=== PATIENT | female | born 1960 | race Caucasian/White ===

== ENCOUNTER 2023-08-10 11:16 | Inpatient (IN) | payer BC, OTHER ==
--- NOTE | 2023-08-10 11:18 | ED ---
General Adult HPI - General Source: RN notes reviewed <Gayle Tran - Last Filed: 08/10/23 11:18> - General Source: patient, family, RN/MD, RN notes reviewed, old records reviewed Limitations: no limitations <Curtis Prabhakar - Last Filed: 08/10/23 14:31> - General Stated complaint: Back pain Time Seen by Provider: 08/10/23 11:18 - History of Present Illness Initial comments: 63-year-old female with past medical history significant for cancer presents the emergency department with a chief complaint of back pain. Patient denies any constitutional symptoms. (Gayle Tran) Patient is a pleasant 61-year-old female presenting to the emergency Department with diffuse pain. Patient was recently diagnosed with metastatic lung cancer and is still currently under investigation. Patient is having increased pain especially in her chest and back. Patient has known soft tissue and vertebral lesions. Patient did see cardiology today. Patient needs further valuations including PET scan and CAT scan as discussed with Dr. Vasquez. (Curtis Prabhakar) Review of Systems ROS Other: All systems not noted in ROS Statement are negative. <Gayle Tran - Last Filed: 08/10/23 11:18> ROS Other: All systems not noted in ROS Statement are negative. Constitutional: Denies: fever Eyes: Denies: eye pain ENT: Denies: ear pain Respiratory: Denies: dyspnea Cardiovascular: Reports: as per HPI Endocrine: Reports: fatigue Gastrointestinal: Reports: abdominal pain, constipation Genitourinary: Denies: dysuria Musculoskeletal: Reports: as per HPI, back pain <Crutis Prabhakar - Last Filed: 08/10/23 14:31> ROS Statement: Those systems with pertinent positive or pertinent negative responses have been documented in the HPI. General Exam <Gayle Tran - Last Filed: 08/10/23 11:18> Limitations: no limitations General appearance: alert, in no apparent distress Head exam: Present: atraumatic Eye exam: Present: normal appearance Neck exam: Present: normal inspection Respiratory exam: Present: normal lung sounds bilaterally Cardiovascular Exam: Present: regular rate, normal rhythm GI/Abdominal exam: Present: soft. Absent: distended, tenderness Extremities exam: Present: normal inspection Neurological exam: Present: alert Psychiatric exam: Present: normal affect, normal mood Skin exam: Present: normal color, other (Subcutaneous nodule left neck and left calf) <Curtis Prabhakar - Last Filed: 08/10/23 14:31> - General Exam Comments Initial Comments: Visual Physical Exam Vital signs reviewed General: Well-appearing, nontoxic, no acute distress. Head: Normocephalic, atraumatic Eyes: PERRLA, EOMI ENT: Airway patent Chest: Nonlabored breathing Skin: No visual rash, normal skin tone Neuro: Alert and oriented 3 Musculoskeletal: No gross abnormalities (Gayle Tran) Course Vital Signs 08/10/23 12:12 Temperature 98.5 F Pulse Rate 86 Respiratory 18 Rate Blood Pressure 157/84 O2 Sat by Pulse 95 Oximetry Medical Decision Making <Gayle Tran - Last Filed: 08/10/23 11:18> - Lab Data Result diagrams: 08/10/23 12:58 08/10/23 12:58 <Curtis Prabhakar - Last Filed: 08/10/23 14:31> - Medical Decision Making I performed the quick note portion of this exam, verbal signature Gayle Tran PA-C (Gayle Tran) Was pt. sent in by a medical professional or institution ([facility], [facility], urgent care, hospital, or intermediate...) When possible be specific @ -Patient was sent in by Dr. Amezquita Did you speak to anyone other than the patient for history (EMS, parent, family, police, friend...)? What history was obtained from this source @ -Family doctor also provided additional history is patient's history is comfortable Did you review nursing and triage notes (agree or disagree)? Why? @ -I reviewed and agree with nursing and triage notes Were old charts reviewed (outside hosp., previous admission, EMS record, old EKG, old radiological studies, urgent care reports/EKG's, intermediate records)? Report findings @ -No old charts were reviewed Differential Diagnosis (chest pain, altered mental status, abdominal pain women, abdominal pain men, vaginal bleeding, weakness, fever, dyspnea, syncope, headache, dizziness, GI bleed, back pain, seizure, CVA, palpatations, mental health, musculoskeletal)? @ -Differential Back Pain: Strain, zoster, cauda equina syndrome, epidural abscess, vertebral osteomyelitis, discitis, fracture, subluxation, disc herniation, DJD, spinal stenosis, dissection, AAA, pancreatitis, peptic ulcer disease, pyelonephritis, kidney stone, this is not meant to be an all-inclusive list. EKG interpreted by me (3pts min.). @ -As above X-rays interpreted by me (1pt min.). @ -None done CT interpreted by me (1pt min.). @ -Computed tomography scan ordered for inpatient U/S interpreted by me (1pt. min.). @ -None done What testing was considered but not performed or refused? (CT, X-rays, U/S, labs)? Why? @ -None What meds were considered but not given or refused? Why? @ -None Did you discuss the management of the patient with other professionals (professionals i.e. , PA, M[employer] T[employer]ER, lab, RT, psych nurse, social media executive, district administrator, teacher, custom protection officer, heel caser)? Give summary @ -Case was discussed with Dr. Amezquita. He does request PET scan and pain control and pulmonary consult. He does also request computed tomography scan chest abdomen pelvis. Case was also discussed with Dr. Reddy who will admit. Was smoking cessation discussed for >3mins.? @ -No Was critical care preformed (if so, how long)? @ -No Were there social determinants of health that impacted care today? How? (Homelessness, low income, unemployed, alcoholism, drug addiction, transportation, low edu. Level, literacy, decrease access to med. care, fpc, rehab)? @ -No Was there de-escalation of care discussed even if they declined (Discuss DNR or withdrawal of care, Hospice)? DNR status @ -No What co-morbidities impacted this encounter? (DM, HTN, Smoking, COPD, CAD, Cancer, CVA, ARF, Chemo, Hep., AIDS, mental health diagnosis, sleep apnea, morbid obesity)? @ -None Was patient admitted / discharged? Hospital course, mention meds given and route, prescriptions, significant lab abnormalities, going to OR and other pertinent info. @ -Patient and family are made aware of plan. Patient will be admitted. Admission orders written. Consult placed. Undiagnosed new problem with uncertain prognosis? @ -No Drug Therapy requiring intensive monitoring for toxicity (Heparin, Nitro, Insulin, Cardizem)? @ -No Were any procedures done? @ -No Diagnosis/symptom? @ -Back pain. Metastatic lung cancer. Constipation. Acute, or Chronic, or Acute on Chronic? @ -Acute, acute, acute Uncomplicated (without systemic symptoms) or Complicated (systemic symptoms)? @ -Complicated with vertebral lesions Side effects of treatment? @ -No Exacerbation, Progression, or Severe Exacerbation? @ -No Poses a threat to life or bodily function? How? (Chest pain, [place], [place], pneumonia, PE, COPD, DKA, ARF, appy, cholecystitis, CVA, Diverticulitis, Homicidal, Suicidal, threat to staff... and all critical care pts) @ -Diffuse metastatic lung cancer does pose a threat to life (Curtis Prabhakar) - Lab Data Lab Results 08/10/23 08/10/23 08/10/23 Range/Units 12:58 12:58 12:58 WBC 8.2 (3.8-10.6) k/uL RBC 5.28 (3.80-5.40) m/uL Hgb 14.9 (11.4-16.0) gm/dL Hct 46.7 H (34.0-46.0) % MCV 88.5 (80.0-100.0) fL MCH 28.3 (25.0-35.0) pg MCHC 32.0 (31.0-37.0) g/dL RDW 13.9 (11.5-15.5) % Plt Count 251 (150-450) k/uL MPV 7.2 Neutrophils % 78 % Lymphocytes % 13 % Monocytes % 7 % Eosinophils % 1 % Basophils % 1 % Neutrophils # 6.4 (1.3-7.7) k/uL Lymphocytes # 1.0 (1.0-4.8) k/uL Monocytes # 0.6 (0-1.0) k/uL Eosinophils # 0.1 (0-0.7) k/uL Basophils # 0.0 (0-0.2) k/uL Sodium 137 (137-145) mmol/L Potassium 4.0 (3.5-5.1) mmol/L Chloride 97 L (98-107) mmol/L Carbon Dioxide 28 (22-30) mmol/L Anion Gap 12 mmol/L BUN 13 (7-17) mg/dL Creatinine 0.58 (0.52-1.04) mg/dL Est GFR (CKD-EPI)AfAm >90 (>60 ml/min/1.73 sqM) Est GFR (CKD-EPI)NonAf >90 (>60 ml/min/1.73 sqM) Glucose 263 H (74-99) mg/dL Calcium 10.4 H (8.4-10.2) mg/dL Total Bilirubin 1.0 (0.2-1.3) mg/dL AST 90 H (14-36) U/L ALT 84 H (4-34) U/L Alkaline Phosphatase 578 H (38-126) U/L Total Protein 7.5 (6.3-8.2) g/dL Albumin 3.8 (3.5-5.0) g/dL Influenza Type A (PCR) Not Detected (Not Detectd) Influenza Type B (PCR) Not Detected (Not Detectd) RSV (PCR) Not Detected (Not Detectd) SARS-CoV-2 (PCR) Not Detected (Not Detectd) Disposition <Gayle Tran - Last Filed: 08/10/23 11:18> Is patient prescribed a controlled substance at d/c from ED?: No Time of Disposition: 14:31 <Curtis Prabhakar - Last Filed: 08/10/23 14:31> Clinical Impression: Back pain, Metastatic lung cancer (metastasis from lung to other site), Constipation Disposition: ADMITTED IP TO THIS HOSP Condition: Stable Referrals: Emily Falcon DO [Primary Care Provider] - 1-2 days
[2023-08-10 13:25] LABS: Basophils % (A) 1 %; Eosinophils # (A) 0.1 k/uL (0-0.7); Eosinophils % (A) 1 %; HCT 46.7 % (34.0-46.0); HGB 14.9 gm/dL (11.4-16.0); Lymphocytes % (A) 13 %; MCH 28.3 pg (25.0-35.0); MCV 88.5 fL (80.0-100.0); Mean Platelet Volume 7.2; Monocytes # (A) 0.6 k/uL (0-1.0); Monocytes % (A) 7 %; Neutrophils # (A) 6.4 k/uL (1.3-7.7); Neutrophils % (A) 78 %; Platelet Count 251 k/uL (150-450); RBC 5.28 m/uL (3.80-5.40); RDW 13.9 % (11.5-15.5); WBC 8.2 k/uL (3.8-10.6)
[2023-08-10 13:36] LABS: ALT 84 U/L (4-34); AST 90 U/L (14-36); African American GFR (CKD) >90 (>60 ml/min/1.73 sqM); Albumin 3.8 g/dL (3.5-5.0); Alkaline Phosphatase 578 U/L (38-126); Anion Gap 12 mmol/L; Blood Urea Nitrogen 13 mg/dL (7-17); Calcium 10.4 mg/dL (8.4-10.2); Carbon Dioxide 28 mmol/L (22-30); Chloride 97 mmol/L (98-107); Glucose 263 mg/dL (74-99); Non-African American GFR(CKD) >90 (>60 ml/min/1.73 sqM); Sodium 137 mmol/L (137-145); Total Protein 7.5 g/dL (6.3-8.2)
[2023-08-10] MEDS ORDERED: MORPHINE SULFATE 4 MG/ML SYRINGE IVP STA (14:21)
[2023-08-10] MEDS ORDERED: SODIUM CHLORIDE 0.9% 1,000 ML IV STA (14:21)
[2023-08-10] MEDS ORDERED: IOPAMIDOL CONTRAST (ORAL USE) VIAL PO PRN (14:22)
[2023-08-10] MEDS ORDERED: HYDROmorphone 1 MG/ML 1 ML SYRINGE IVP PRN (14:22)
[2023-08-10] MEDS ORDERED: NALOXONE 0.4 MG/ML 1 ML VIAL IV PRN (14:22)
[2023-08-10] MEDS: SODIUM CHLORIDE 0.9% 1,000 ML IV SCH (16:26)
--- NOTE | 2023-08-10 20:06 | XR ---
EXAMINATION TYPE: XR chest 2V DATE OF EXAM: 08/10/2023 COMPARISON: None INDICATION: Chest pain history of lung cancer TECHNIQUE: Frontal and lateral views of the chest are obtained. FINDINGS: The heart size is normal. The pulmonary vasculature is normal. There is a large mass right left upper lung field can be compatible with the patient's reported lung cancer. Right lung appears clear. The right hilum appears unremarkable. IMPRESSION: 1. Large mass left upper lung field
--- NOTE | 2023-08-10 21:06 | CT ---
EXAMINATION TYPE: CT ChestAbdPelvis w con CT DLP: 1355.8 mGycm, Automated exposure control for dose reduction was used. DATE OF EXAM: 08/10/2023 6:00 PM COMPARISON: Same day 2V chest x-ray CLINICAL INDICATION:Female, 63 years old with history of mets, pain; PHH, Pt c/o back pain, neck pain , constipation, chest pain and bilat leg pain. Pt has hx lung cancer with mets Technique: Multiple axial images of the chest, abdomen, and pelvis were obtained. Two-dimensional cor onal and sagittal reconstructions were obtained. Contrast used:100ml mL of Isovue 300 with IV Contrast, Oral contrast used: with Oral Contrast Findings: CHEST: LUNGS/ PLEURA: Large mass centered in the left upper lobe, surrounds and narrows bronchial branches t o the left upper lobe at the hilum; bronchial branches then taper into the mass. Left upper lobe pulm onary artery is also surrounded and narrowed but appears to remain grossly patent. Mass is difficult to measure precisely but is up to 9.4 x 6 cm axially image 16 series 201, and extends up to 10 cm aircraft instrument tester niocaudally. Tumor directly invades the left side mediastinum, extending into the prevascular space u p to the wall of the aorta in some areas. The left brachiocephalic vein is severely narrowed. Mass ex tends in contiguity with left hilar soft tissue density consistent with conglomerate metastatic adeno shankar measuring 5.5 x 4.3 cm image 25. Multiple additional mediastinal and right hilar enlarged nodes are also seen. Left inferior paratracheal 3.2 x 1.8 cm, right inferior paratracheal 3.2 x 2.4 cm. Fajardo bcarinal 3.1 x 1.7 cm. Other smaller examples are possible, continuing superiorly along the trachea. Left medial supraclavicular mass is 3.9 x 3.2 cm. Right hilar adenopathy is also present measuring up to 2.4 x 1.5 cm. The left upper lobe mass is surrounded by conglomerative satellite nodules and groundglass infiltrate s throughout the majority of the left upper lobe likely representing lymphangitic spread of tumor. Th ere is mild soft tissue thickening along the preserved mediastinal border anteriorly which could refl ect tumor spread or postobstructive atelectasis. Left lower lobe shows no sizable nodules. Right lung shows no sizable nodules. Platelike atelectasis in the right middle lobe. No pleural effusion or pne umothorax. AIRWAY: Central airways and right-sided bronchi are otherwise patent. HEART: Size upper normal.. No pericardial effusion. MEDIASTINUM: Adenopathy as described above. VASCULATURE: Aorta enhances normally without evidence of dissection flap or aneurysm. Grossly preser lupe enhancement of the pulmonary arteries in the limits of the exam. Main pulmonary artery is not enl arged. MUSCULOSKELETAL: Mild degenerative changes are present. No acute fracture lucency or malalignment. Th ere are multiple lytic osseous lesions seen consistent with metastases, includin x 2.6 cm in the upper sternal body with some anterior and posterior soft tissue extension. Suspect smaller metastasis in the region of the xiphoid process. Left anterior vertebral body T12 with some anterior paraverteb ral soft tissue extension. Mild pathologic compression fracture suggested without significant retropu lsion seen. 2.9 x 2.3 cm in the right L5 transverse process. Sacrum appears intact. No distinct pelvi c lesion. Right femoral head 25 x 17 mm lesion at the anterior aspect of the femoral head just below the hip joint. Adjacent subcentimeter lytic lesions are also seen anteriorly and posteriorly. [These proximal femoral lesions could potentially place the patient at risk for developing pathologic fract ure]. SOFT TISSUES/LYMPH NODES: No chest wall soft tissue mass or axillary adenopathy is seen. Scattered fi broglandular densities in the breasts. LOWER NECK: The thyroid shows at least one vague hypodense nodule in the right lobe measuring 0.9 cm, there are probably others.. ABDOMEN: ABDOMEN LIVER: Extensive centrally hypodense target shaped lesions throughout the liver consistent with metas tases. They occupy probably 75% of the hepatic parenchyma and are found diffusely. Examples include: 4.7 x 4.6 cm in the mid liver anteriorly image 53 series 201. Another 3. By 3 cm in the more posterio r right lobe image 62. Portal vein is enhancing. IVC is patent through the liver. GALLBLADDER AND BILE DUCTS: Unremarkable. PANCREAS: Unremarkable. SPLEEN: Unremarkable. Small adjacent splenule. ADRENAL GLANDS: Mildly thickened and small nodular, especially the left, most likely due to hyperplas ia versus adenomatoid changes. No obvious metastatic mass.. KIDNEYS AND URETERS: Kidneys enhance symmetrically without evidence of mass or hydronephrosis. A 0.7 cm hypodensity in the posterior left kidney is soft tissue swelling TC but has the appearance of a cy st. Kidneys excrete contrast symmetrically. PELVIS BLADDER: Unremarkable REPRODUCTIVE: The uterus is surgically absent. Moderate believed to be the ovaries are unremarkable. No pelvic masses seen. ABDOMEN & PELVIS STOMACH AND BOWEL: Contrast traverses the stomach and small bowel loops without evidence of obstructi on. There is apparent wall thickening of the distal stomach and proximal duodenum. There is probably a small diverticulum in its third portion. No evidence of bowel obstruction. The appendix is unremark able. There is moderate stool mixed with contrast throughout the colon. Scattered diverticula are sug gested. No signs of diverticulitis. No evidence of bowel obstruction. PERITONEUM: No evidence of pneumoperitoneum or free fluid. No visible intraperitoneal implants. VASCULATURE: I'll/moderate mixed plaque of the abdominal aorta and branches. Celiac, SMA, bilateral r enal arteries appear patent. Some calcific disease throughout the iliac arterial trees without focal high-grade stenosis seen. There is no evidence of abdominal aortic aneurysm or dissection. MUSCULOSKELETAL: No acute osseous abnormalities LYMPH NODES: No evidence of enlarged abdominal pelvic lymph nodes. SOFT TISSUE/ABDOMINAL WALL: Unremarkable IMPRESSION: 1. Large infiltrative left upper lobe lung mass, as detailed above. This surrounds and narrows branc hes of the left upper lobe bronchus and pulmonary artery within the left hilum. 2. Direct tumor extension into the left mediastinum to the margin of the aorta. Tumor also extends i n contiguity with soft tissue metastasis in the left hilum. 3. Multiple metastatic mediastinal nodes, prevascular, right and left paratracheal, subcarinal. Righ t hilar metastasis. Left supraclavicular metastasis. 4. Infiltrate throughout the majority of the left upper lobe apart from the mass, consistent with me tastasis/lymphangitic spread of tumor. 5. No clear evidence of right lung metastases. Will reassess on follow-up. 6. Diffuse hepatic metastases. 7. Enlarged shira hepatis nodes, likely metastatic. 8. Soft tissue thickening in the distal stomach and duodenum, concerning for metastatic involvement versus inflammatory process. 9. Multiple lytic osseous metastases, including: sternum, left anterior T12 vertebral body with mild pathologic compression deformity, right L5 transverse process, right proximal femur. 10. Hypodense thyroid nodularity, nonspecific. Cannot exclude metastasis. Follow-up ultrasound could be of benefit.
[2023-08-10] MEDS: FAMOTIDINE 20 MG TAB PO SCH (21:31)
[2023-08-10] MEDS: ONDANSETRON 4 MG/2 ML VIAL IVP PRN (21:46)
[2023-08-11] MEDS: HYDROmorphone 0.5 MG/0.5 ML SYRINGE IVP PRN (00:28)
[2023-08-11] MEDS: FAMOTIDINE 20 MG TAB PO SCH ×2 (08:26→20:15)
[2023-08-11] MEDS: ONDANSETRON 4 MG/2 ML VIAL IVP PRN (08:26)
[2023-08-11] MEDS: SODIUM CHLORIDE 0.9% 1,000 ML IV SCH ×2 (09:55→20:16)
[2023-08-11 11:14] LABS: Basophils # (A) 0.04 X 10*3/uL (0.00-0.10); Basophils % (A) 0.4 %; Eosinophils # (A) 0.11 X 10*3/uL (0.04-0.35); Eosinophils % (A) 1.2 %; HCT 45.3 % (37.2-46.3); HGB 13.9 g/dL (12.0-15.0); Lymphocytes # (A) 0.89 X 10*3/uL (0.90-5.00); Lymphocytes % (A) 9.6 %; MCH 27.6 pg (27.0-32.0); MCHC 30.7 g/dL (32.0-37.0); MCV 89.9 FL (80.0-97.0); Mean Platelet Volume 9.6 FL (9.5-12.2); Monocytes # (A) 0.78 X 10*3/uL (0.20-1.00); Monocytes % (A) 8.4 %; NRBC Per 100 WBC 0 X 10*3/uL (0.00-0.01); Neutrophils # (A) 7.43 X 10*3/uL (1.80-7.70); Platelet Count 242 X 10*3/uL (140-440); RBC 5.04 X 10*6/uL (4.10-5.20); WBC 9.29 X 10*3/uL (4.50-10.00)
[2023-08-11 11:20] LABS: BUN/Creat Ratio 17.83 Ratio (12.00-20.00); Blood Urea Nitrogen 10.7 mg/dL (9.0-27.0); Glucose 139 mg/dL (70-110)
[2023-08-11 11:21] LABS: ALT 81 U/L (8-44); AST 90 U/L (13-35); Albumin 3.6 g/dL (3.8-4.9); Albumin/Globulin Ratio 1.16 Ratio (1.60-3.17); Alkaline Phosphatase 532 U/L (41-126); Calcium 9.7 mg/dL (8.7-10.3); Carbon Dioxide 29.3 mmol/L (21.6-31.8); Chloride 101 mmol/L (96-109); Globulin 3.1 g/dL (1.6-3.3); Potassium 4.5 mmol/L (3.5-5.5); Sodium 139 mmol/L (135-145); Total Bilirubin 0.5 mg/dL (0.3-1.2); Total Protein 6.7 g/dL (6.2-8.2)
[2023-08-11] MEDS: MAGNESIUM HYDROXIDE 2,400 MG/30 ML CUP PO PRN ×2 (13:37→13:38)
[2023-08-11] MEDS: SENNOSIDES-DOCUSATE SODIUM 1 EACH TAB PO SCH ×2 (13:38→20:15)
[2023-08-11 14:06] VITALS: BMI 34.7
--- NOTE | 2023-08-11 14:49 | P.CNPUL ---
History of Present Illness Consult date: 08/11/23 Requesting physician: Jay Jay Falcon Reason for consult: chest pain, abnormal CXR/CT Chief complaint: Neck, sternum, back pain History of present illness: This is a 63-year-old female patient with a history of 40+ years of chronic tobacco dependence however quit in October 2022. She states she had a trip and fall back in March 2023 and was having ongoing issues with chest discomfort and did have a chest x-ray at the beginning of July. That chest x-ray was abnormal and she was sent to [place] for a computed tomography scan of the chest approximately 2 weeks ago. Based on those findings she was sent to medical oncology who referred the patient here to the emergency department. A chest x-ray revealed a large left upper lung mass. A computed tomography scan of the chest abdomen and pelvis revealed a large infiltrative left upper lobe lung mass. This surrounds and narrows branches a left upper lobe bronchus and pulmonary artery within the left hilum. There is direct tumor extension into the left mediastinum to the margin of the aorta. Tumor also extends and continu ed daily with soft tissue metastasis in the left hilum. Multiple metastatic mediastinal nodes, prevascular, right and left paratracheal, subcarinal. Right hilar metastasis. Left supraclavicular metastasis. Infiltrate throughout the majority of the left upper lobe apart from the mass consistent with metastatic/lymphangitic spread of tumor. No clear evidence of right lung metastasis. There is diffuse hepatic metastasis. Enlarged shira hepatis nodes, likely metastatic. Soft tissue thickening in the distal stomach and duodenum, concerning for metastatic involvement versus inflammatory process. Multiple lytic osseous metastasis including: Sternal, left anterior T12 vertebrae with mild pathologic compression deformity, right L5 transverse process, right proximal femur. White count 9.2. Hemoglobin 13.9. Platelets 242. Sodium 139. Potassium 4.5. Bicarb 29. BUN 11. Creatinine 0.6. Glucose 139. AST 90. ALT 81. Alk phos 532. Viral screen negative. She is seen today in consu ltation on the oncology unit. She is currently laying in bed. Awake and alert. She is having ongoing issues with neck sternal and spine discomfort. She denies any worsening shortness of breath. She denies any hemoptysis. No cough or congestion. She is currently on 2 L nasal cannula with O2 saturations in the 90s. Afebrile. Hemodynamically stable. She was initiated on Dilaudid for pain control. Review of Systems REVIEW OF SYSTEMS: CONSTITUTIONAL: Denies any recent significant weight loss or weight gain. EYES: Denies change in vision. EARS, NOSE, MOUTH, THROAT: Denies headaches, denies sore throat. CARDIOVASCULAR: Denies chest pain, palpitations or syncopal episodes. RESPIRATORY: Denies shortness of breath, cough, congestion or hemoptysis. GASTROINTESTINAL: Denies change in appetite, denies abdominal pain GENITOURINARY: Denies hematuria, denies infections. MUSKULOSKELETAL: Positive for multiple areas of skeletal pain including neck, sternum, spine. INTEGUMENTARY: Denies rash, denies eczema. NEUROLOGICAL: Denies recent memory loss, no recent seizure activity. PSYCHIATRIC: Denies anxiety, denies depression. HEMATOLOGIC/LYMPHATIC: Denies anemia, denies enlarged lymph nodes. Past Medical History Past Medical History: Cancer Additional Past Medical History / Comment(s): Lung cancer w/mets History of Any Multi-Drug Resistant Organisms: None Reported Past Surgical History: Hysterectomy, Orthopedic Surgery, Tonsillectomy Past Anesthesia/Blood Transfusion Reactions: No Reported Reaction Smoking Status: Former smoker - Past Family History Father Family Medical History: COPD Medications and Allergies Home Medications Medication Instructions Recorded Confirmed Type No Known Home Medications 08/10/23 08/10/23 History Allergies Allergy/AdvReac Type Severity Reaction Status Date / Time tramadol Allergy Rash/Hives Verified 08/10/23 15:47 hydrocodone [From [place]] AdvReac Nausea & Verified 08/10/23 15:47 Vomiting Physical Exam Vitals: Vital Signs Temp Pulse Pulse Resp BP BP BP 08/11/23 12:10 98.9 F 82 18 145/70 08/11/23 08:40 82 18 08/11/23 08:06 98 F 82 18 134/81 08/11/23 02:36 97.8 F 91 18 131/71 08/11/23 00:28 82 15 110/72 08/10/23 18:08 75 18 155/83 08/10/23 16:29 77 18 143/82 Pulse Ox 08/11/23 12:10 90 L 08/11/23 08:40 08/11/23 08:06 95 08/11/23 02:36 98 08/11/23 00:28 96 01/02/24 18:08 93 L 08/10/23 16:29 94 L Intake and Output 08/10/23 08/11/23 08/11/23 22:59 06:59 14:59 Other: Voiding Method Toilet Toilet # Voids 1 1 # Emeses 1 Weight 86.183 kg GENERAL EXAM: Alert, pleasant 63-year-old female, on 2 L nasal cannula, fairly comfortable in no apparent distress. HEAD: Normocephalic. EYES: Normal reaction of pupils, equal size. NOSE: Clear with pink turbinates. THROAT: No erythema or exudates. NECK: No JVD. Left supraclavicular lymph nodes palpable. CHEST: No chest wall deformity. Tender to palpation of the sternum. LUNGS: Equal air entry with diminished breath sounds in the left upper lung. CVS: S1 and S2 normal with no audible murmur, regular rhythm. ABDOMEN: Tender to palpation right quadrant, normal bowel sounds, no guarding or rigidity. SPINE: No scoliosis or deformit. Tender to palpation SKIN: No rashes CENTRAL NERVOUS SYSTEM: No focal deficits, tone is normal in all 4 extremities. EXTREMITIES: There is no peripheral edema. No clubbing, no cyanosis. Peripheral pulses are intact. Results - Laboratory Findings CBC and BMP: 08/11/23 08:16 08/11/23 08:16 Abnormal lab findings: Abnormal Labs 08/10/23 08/10/23 08/11/23 12:58 12:58 08:16 Hct 46.7 H MCHC 30.7 L Lymphocytes # 0.89 L Chloride 97 L Glucose 263 H Calcium 10.4 H AST 90 H ALT 84 H Alkaline Phosphatase 578 H Albumin Albumin/Globulin Ratio 08/11/23 08:16 Hct MCHC Lymphocytes # Chloride Glucose 139 H Calcium AST 90 H ALT 81 H Alkaline Phosphatase 532 H Albumin 3.6 L Albumin/Globulin Ratio 1.16 L - Diagnostic Findings Chest x-ray: image reviewed CT scan - chest: image reviewed Assessment and Plan Assessment: Skeletal pain including the neck, sternum and spine. A computed tomography scan of the chest abdomen and pelvis revealed a large infiltrative left upper lobe lung mass. This surrounds and narrows branches a left upper lobe bronchus and pulmonary artery within the left hilum. There is direct tumor extension into the left mediastinum to the margin of the aorta. Tumor also extends and co ntinued daily with soft tissue metastasis in the left hilum. Multiple metastatic mediastinal nodes, prevascular, right and left paratracheal, subcarinal. Right hilar metastasis. Left supraclavicular metastasis. Infiltrate throughout the majority of the left upper lobe apart from the mass consistent with metastatic/lymphangitic spread of tumor. No clear evidence of right lung metastasis. There is diffuse hepatic metastasis. Enlarged shira hepatis nodes, likely metastatic. Soft tissue thickening in the distal stomach and duodenum, concerning for metastatic involvement versus inflammatory process. Multiple lytic osseous metastasis including: Sternal, left anterior T12 vertebrae with mild pathologic compression deformity, right L5 transverse process, right proximal femur. Large left upper lung mass suspect small cell lung cancer with significant metastasis including the liver and bone possible distal stomach and duodenum 40 year smoking history, quit in October 2022 History of trip and fall back in March 2023 with residual pain and discomfort leading to a chest x-ray in July 2023 Plan: The patient was seen and evaluated CAT scan of the chest abdomen and pelvis reviewed Chest x-ray, labs and medications reviewed Obtain a d-dimer, Doppler of the lower extremities Recommend supraclavicular lymph node biopsy by interventional radiology If unable to obtain would proceed with bronchoscopy and biopsy Medical and radiation oncology consults placed Titrate the FiO2 as tolerated The plan was discussed in detail with both the patient and her who is at the bedside They are agreeable to the plan We will continue to follow and make further recommendations based on her clinical status I have personally seen and examined the patient, performed the documentation and the assessment and plan as written. Number of minutes spent on the visit: 20.
--- NOTE | 2023-08-11 16:40 | US ---
EXAMINATION TYPE: US venous doppler duplex LE BI DATE OF EXAM: 08/11/2023 4:31 PM COMPARISON: NONE CLINICAL INDICATION: Female, 63 years old with history of New cancer, edema; pain in left lateral perez f. Pt had fall back in March. No hx of DVT. Not on blood thinners SIDE PERFORMED: Bilateral TECHNIQUE: The lower extremity deep venous system is examined utilizing real time linear array sonog mauro with graded compression, doppler sonography and color-flow sonography. VESSELS IMAGED: Common Femoral Vein Deep Femoral Vein Greater Saphenous Vein * Femoral Vein Popliteal Vein Small Saphenous Vein * Proximal Calf Veins (* superficial vessels) Right Leg: No evidence for DVT Left Leg: No evidence for DVT IMPRESSION: Grayscale, color doppler, spectral doppler imaging performed of the deep veins of the lo wer extremities. There is normal flow, compressibility, vascular waveforms.
[2023-08-11] MEDS ORDERED: droNABinol 2.5 MG CAP PO PRN (17:04)
--- NOTE | 2023-08-11 23:41 | P.CONS ---
History of Present Illness - Reason for Consult Consult date: 08/11/23 metastatic disease Requesting physician: Curtis Prabhakar - Chief Complaint intractable lezama - History of Present Illness Ms. Hayes is a 63-year-old woman with a past medical history significant for cigarette smoking with a history of suspected metastatic lung cancer. She is a patient of Dr. Kasey Vasquez. In the late summer 2022, she noted having a mechanical fall where she fell on her chest. She subsequently developed persistent central chest and right-sided chest wall pain. This eventually radiated to the back without any relieving or exacerbating factors. She did have x-rays, which noted rib fractures. Following a trip to [place] in June 2023, she had progressive dyspnea and cough and was diagnosed with pneumonia. She had persistent cough after antibiotics. CT of the chest with contrast on 07/16/2023 was notable for dense lobular opacity in the left upper lobe extending from the apex to the hilum measuring 8.3 x 4.5 cm and 9.4 cm in the craniocaudal dimension. The mass was contiguous with the left mediastinum, including a portion of the distal aortic arch and left main pulmonary artery. It was also notable for left supraclavicular, superior mediastinal, and bilateral hilar lymphadenopathy. Soft tissue lesion was noted in the left anterior aspect of the T12 vertebral body with cortical destruction measuring 1.9 x 2.6 cm. There is another soft tissue lesion in the mid sternum measuring 2.3 x 3 x 3.8 cm. Multiple defined hypodense lesions in the liver were also noted with the largest measuring 3.6 cm. Imaging findings were discussed and appear to be consistent with malignancy, likely stage IV primary lung cancer. PET CT was rescheduled due to concerns for insurance and this has yet to be obtained. Brain MRI negative for metastasis. Case was discussed with pulm, with plans to obtain biopsy. Patient presented to the emergency room with complaints of intractable pain. Patient has been using [place] at home but reports pain has been progressing which caused her to present to the emergency room for further evaluation. Upon adm ission chest x-ray revealed large mass in the left upper lung field. CT chest abdomen pelvis revealed large infiltrative left upper lobe mass which surrounds and narrows branches of the left upper lobe bronchus and pulmonary artery within the left hilum. Direct tumor extension into the left mediastinum to the margin of the aorta. Multiple metastatic mediastinal nodes, prevascular, right and lef t paratracheal, subcarinal. Right hilar metastasis. Left supraclavicular metastasis. Infiltrate throughout the majority of the left upper lobe apart from the mass. No evidence of right lung metastasis. Diffuse hepatic metastases. Enlarged shira hepatis nodes. Soft tissue thickening in the distal stomach and duodenum. Multiple lytic osseous metastasis including sternum, left anterior T12 vertebral body with mild pathologic compression deformity, right L5 transverse process and right proximal femur. Patient is reporting improved pain control at today's visit with IV pain meds however s is experiencing nausea upon administration. Reporting some improvement with Zofran. CBC revealed, WBC 8.2, hgb 14.9, plt 251,000. LFTs elevated, bilirubin 1.0. Review of Systems 10 point ROS is negative except as stated in the HPI Past Medical History Past Medical History: Cancer Additional Past Medical History / Comment(s): Lung cancer w/mets History of Any Multi-Drug Resistant Organisms: None Reported Past Surgical History: Hysterectomy, Orthopedic Surgery, Tonsillectomy Past Anesthesia/Blood Transfusion Reactions: No Reported Reaction Smoking Status: Former smoker - Past Family History Father Family Medical History: COPD Medications and Allergies Home Medications Medication Instructions Recorded Confirmed Type No Known Home Medications 08/10/23 08/10/23 History Allergies Allergy/AdvReac Type Severity Reaction Status Date / Time tramadol Allergy Rash/Hives Verified 08/10/23 15:47 hydrocodone [From [place]] AdvReac Nausea & Verified 08/10/23 15:47 Vomiting Physical Exam Vitals: Vital Signs Temp Pulse Resp BP BP Pulse Ox 08/11/23 20:00 98.4 F 101 H 106/63 90 L 08/11/23 12:10 98.9 F 82 18 145/70 90 L 08/11/23 08:40 82 18 08/11/23 08:06 98 F 82 18 134/81 95 08/11/23 02:36 97.8 F 91 18 131/71 98 08/11/23 00:28 82 15 110/72 96 Intake and Output 08/11/23 08/11/23 08/11/23 06:59 14:59 22:59 Other: Voiding Method Toilet Toilet # Voids 1 1 1 # Bowel Movements 1 # Emeses 1 Weight 86.183 kg - Constitutional General appearance: average body habitus - EENT Eyes: EOMI ENT: hearing grossly normal - Neck Neck: lymphadenopathy - Respiratory Respiratory: left: diminished, bilateral: rales - Cardiovascular Rhythm: regular Heart sounds: normal: S1, S2 - Gastrointestinal General gastrointestinal: soft, no tenderness - Integumentary Integumentary: no cyanotic - Neurologic grossly intact - Musculoskeletal tenderness to lower thoracic spine Musculoskeletal: strength equal bilaterally - Psychiatric Psychiatric: A&O x's 3 Results CBC & Chem 7: 08/11/23 08:16 08/11/23 08:16 Labs: Abnormal Lab Results - Last 24 Hours (Table) 08/11/23 08/11/23 08/11/23 Range/Units 08:16 08:16 15:00 MCHC 30.7 L (32.0-37.0) g/dL Lymphocytes # 0.89 L (0.90-5.00) X 10*3/uL D-Dimer 1.73 H (<0.60) mg/L FEU Glucose 139 H (70-110) mg/dL AST 90 H (13-35) U/L ALT 81 H (8-44) U/L Alkaline Phosphatase 532 H (41-126) U/L Albumin 3.6 L (3.8-4.9) g/dL Albumin/Globulin Ratio 1.16 L (1.60-3.17) Ratio Chest x-ray: report reviewed CT scan - abdomen: report reviewed CT scan - chest: report reviewed CT scan - pelvis: report reviewed Assessment and Plan (1) Intractable pain Current Visit: Yes Status: Acute Priority: High Code(s): R52 - PAIN, UNSPECIFIED SNOMED Code(s): 04636316 (2) Constipation Current Visit: Yes Status: Acute Priority: High Code(s): K59.00 - CONSTIPATION, UNSPECIFIED SNOMED Code(s): 33356264 (3) Metastatic lung cancer (metastasis from lung to other site) Current Visit: Yes Status: Acute Priority: High Code(s): C34.90 - MALIGNANT NEOPLASM OF UNSP PART OF UNSP BRONCHUS OR LUNG SNOMED Code(s): 53663041 Plan: Metastatic disease, suspected lung primary: -CT of the chest with contrast on 07/16/2023 was notable for dense lobular opacity in the left upper lobe extending from the apex to the hilum measuring 8.3 x 4.5 cm and 9.4 cm in the craniocaudal dimension. The mass was contiguous with the left mediastinum, including a portion of the distal aortic arch and left main pulmonary artery. It was also notable for left supraclavicular, superior mediastinal, and bilateral hilar lymphadenopathy. Soft tissue lesion was noted in the left anterior aspect of the T12 vertebral body with cortical destruction measuring 1.9 x 2.6 cm. There is another soft tissue lesion in the mid sternum measuring 2.3 x 3 x 3.8 cm. Multiple defined hypodense lesions in the liver were also noted with the largest measuring 3.6 cm. Imaging findings are consistent with malignancy, likely stage IV primary lung cancer. -PET CT was rescheduled due to concerns for insurance and this has yet to be obtained. Brain MRI negative for metastasis. Biopsy was to be scheduled outpt with pulm but also has been delayed to concerns of insurance coverage. -Rad onc consulted for eval for palliative RT to osseous mets -Pulmonology consulted for biopsy. They plan to hold bronch for now, and have IR evaluate for left supraclavicular biopsy, consult has been placed -Once biopsy is performed, tissue sample can be sent for NGS and PD-L1 testing in addition to obtaining circulating tumor DNA from the peripheral blood if this is non-small cell lung cancer -Once tissue biopsy obtained and diagnosis is confirmed, will have discussion with patient and family regarding treatment options and goals of care Pt and updated on POC and are agreeable Intractable pain: -Pain has been progressing, c/o pain is worst across sternum and mid back. Known osseous mets to these areas -Rad onc consulted. Spoke with Dr. Rogel regarding case -Continue pain meds and anti-emetics as needed. Will continue to monitor with p lans to transition pt to long acting and short acting analgesics prior to discharge to ensure adequate pain control Constipation: -Reports having small BM 4 days ago. Been having issues with constipation x 1 month -Senokot-S and milk of magnesia added. Pt also drinking prune juice -Anti-emetic regimen adjusted
[2023-08-12] MEDS: ACETAMINOPHEN TAB 325 MG TAB PO PRN ×3 (02:48→23:48)
[2023-08-12] MEDS ORDERED: DEXAMETHASONE SOD PHOSPHATE 10 MG/ML 1 ML VIAL IVP STA (03:14)
[2023-08-12] MEDS ORDERED: FUROSEMIDE 10 MG/ML 2 ML VIAL IV ONE (03:14)
[2023-08-12] MEDS: IPRATROPIUM-ALBUTEROL 3 ML NEB INHALATION PRN (04:47)
[2023-08-12] MEDS: IPRATROPIUM-ALBUTEROL 3 ML NEB INHALATION SCH ×4 (08:26→18:36)
[2023-08-12] MEDS: FAMOTIDINE 20 MG TAB PO SCH ×2 (08:39→22:42)
[2023-08-12] MEDS: SENNOSIDES-DOCUSATE SODIUM 1 EACH TAB PO SCH ×2 (08:39→22:41)
[2023-08-12 09:09] LABS: INR 1.1 (<1.2); Prothrombin Time 11.6 sec (10.0-12.5)
--- NOTE | 2023-08-12 11:02 | P.CONS ---
History of Present Illness - Reason for Consult Consult date: 08/11/22 metastatic disease to bone, pain Requesting physician: Kasey Vasquez - Chief Complaint sternal/back pain - History of Present Illness The patient is a 63-year-old female with a [id number] smoking history having quit this past year. She presents with suspected metastatic lung cancer, and we are currently awaiting biopsy. She has intractable pain due to multiple bone m etastases. She states that she had a fall this past May where she felt she injured her sternum. She developed pain which seemed to worsen over time. She underwent a computed tomography scan of the chest in July at an outside hospital. This revealed a suspicious left upper lung mass. She was subsequent sent to the ER on 08/10/2023 secondary to severe pain. A computed tomography scan of the chest, abdomen and pelvis performed revealed a large left upper lung mass, measuring 9.4 x 6 x 10 cm with adjacent left hilar and mediastinal adenopathy. Around this lesion there were satellite nodules concerning for lymphangitic spread. A 3 cm left supraclavicular lymph node was appreciated. The patient had multiple lytic lesions seen including a 3 cm sternal mass, a T12 anterior mass, and L5 lesion involving the transverse process as well as a 2 cm right femoral head lesion. Multiple liver metastasis were appreciated as well as abnormal thickening involving the stomach and duodenum. The patient reportedly had an MRI of the brain at an outside facility which was unremarkable. At the current time, the patient reports sternal pain as well as pain in the back and left calf. She states the pain is currently approximately 4-5 out of 10. However, whenever the patient tries to ambulate her even sit up in bed the pain becomes much more severe. She is able to walk short distances, but does need some assistance. Unfortunately, the patient has become nauseous with recent pain medications. The left calf pain is currently being worked up with a Doppler ultrasound, which just concluded during my consultation. Negative for DVT. Review of Systems Constitutional: Denies chills, Denies fever Eyes: denies blurred vision Ears, nose, mouth and throat: Denies headache Cardiovascular: Reports chest pain (Sternal location) Respiratory: Reports cough, Reports dyspnea Gastrointestinal: Denies abdominal pain Genitourinary: Denies flank pain Musculoskeletal: Reports as per HPI Integumentary: Denies rash Neurological: Denies aphasia, Denies ataxia Psychiatric: Denies confusion Past Medical History Past Medical History: Cancer Additional Past Medical History / Comment(s): Lung cancer w/mets History of Any Multi-Drug Resistant Organisms: None Reported Past Surgical History: Hysterectomy, Orthopedic Surgery, Tonsillectomy Past Anesthesia/Blood Transfusion Reactions: No Reported Reaction Smoking Status: Former smoker - Past Family History Father Family Medical History: COPD Medications and Allergies Home Medications Medication Instructions Recorded Confirmed Type No Known Home Medications 08/10/23 08/10/23 History Allergies Allergy/AdvReac Type Severity Reaction Status Date / Time tramadol Allergy Rash/Hives Verified 08/10/23 15:47 hydrocodone [From [place]] AdvReac Nausea & Verified 08/10/23 15:47 Vomiting Physical Exam Vitals: Vital Signs Temp Pulse Pulse Resp BP Pulse Ox 08/12/23 08:36 92 08/12/23 08:27 92 95 08/12/23 07:15 97.4 F L 90 16 146/81 95 08/12/23 04:58 88 08/12/23 04:47 84 08/12/23 02:51 92 L 08/12/23 02:50 89 L 08/12/23 02:00 98.3 F 91 16 160/76 94 L 08/11/23 20:00 98.4 F 101 H 106/63 90 L 08/11/23 12:10 98.9 F 82 18 145/70 90 L Intake and Output 08/11/23 08/12/23 08/12/23 22:59 06:59 14:59 Output Total 1200 Balance -1200 Output: Urine 1200 Other: Voiding Method Toilet Toilet # Voids 1 3 # Bowel Movements 1 - Constitutional General appearance: no acute distress - EENT Eyes: EOMI, PERRLA ENT: hearing grossly normal - Neck Neck: lymphadenopathy (Left neck 2 cm firm SCV node palpated) - Respiratory Respiratory: bilateral: diminished - Cardiovascular Rhythm: regular - Gastrointestinal General gastrointestinal: no distended, no tenderness - Integumentary Integumentary: no cellulitis, no rash - Neurologic Neurologic: CNII-XII intact - Psychiatric Psychiatric: A&O x's 3, appropriate affect Results CBC & Chem 7: 08/11/23 08:16 08/11/23 08:16 Labs: Abnormal Lab Results - Last 24 Hours (Table) 08/11/23 08/11/23 08/11/23 Range/Units 08:16 08:16 15:00 MCHC 30.7 L (32.0-37.0) g/dL Lymphocytes # 0.89 L (0.90-5.00) X 10*3/uL D-Dimer 1.73 H (<0.60) mg/L FEU Glucose 139 H (70-110) mg/dL AST 90 H (13-35) U/L ALT 81 H (8-44) U/L Alkaline Phosphatase 532 H (41-126) U/L Albumin 3.6 L (3.8-4.9) g/dL Albumin/Globulin Ratio 1.16 L (1.60-3.17) Ratio CT scan - abdomen: report reviewed, image reviewed CT scan - chest: report reviewed, image reviewed CT scan - pelvis: report reviewed, image reviewed Assessment and Plan Assessment: The patient is a 63-year-old female with a [id number] smoking history having quit this past year. She presents with suspected metastatic lung cancer, and we are currently awaiting biopsy. Plan: 1. Intractable pain: As noted above, the patient unfortunately has several areas causing pain - likely from bone metastases. The most notable of these involves a lesion in the sternum, as well as likely a T12 vertebral body lesion. She is also complaining of left calf pain, as well as some pain in the neck. I discussed with the patient that we would be able to offer her a palliative course of radiation. Although we are awaiting biopsy, considering the very high clinical likelihood of underlying malignancy, we could move forward with CT simulation and planning for these areas. We would likely at least initially try to address the sternal metastasis as well as the T-spine. I discussed with the patient that this may help to improve her pain, but that it often takes 1-2 weeks for the full effect of radiation to be realized. Therefore, I felt it would be important for the patient to continue to work towards improving her pain management during this hospital stay. I will discuss her case further with Dr. Vasquez. 2. Lung cancer: Biopsy pending, likely will target left Supraclavicular node as this is accessable. Depending on type of malignancy will dictate next steps in care. Outpatient PET-CT will also be recommended, although it does not need to be done urgently as the patient clearly has metastatic disease. Outside brain MRI negative, we will obtain the report. Time with Patient: Greater than 30
[2023-08-12] MEDS: IBUPROFEN 800 MG TAB PO PRN (11:12)
--- NOTE | 2023-08-12 11:14 | US ---
EXAMINATION TYPE: US thyroid st tissue head/neck DATE OF EXAM: 08/12/2023 COMPARISON: CT CLINICAL INDICATION: Female, 63 years old with history of Please look at left supraclavicular lymph n ode; Enlarged lymph node visualized on CT Technique: Grayscale color Doppler imaging of the left neck. FINDINGS: Left, medial supraclavicular area scanned- ill-defined area= 2.5 x 1.7 x 1.7 cm IMPRESSION: Mass on CT is confirmed. IR to attempt ultrasound-guided tissue sampling.
[2023-08-12] MEDS: HYDROmorphone 0.5 MG/0.5 ML SYRINGE IVP PRN (12:28)
[2023-08-12] MEDS: ONDANSETRON 4 MG/2 ML VIAL IVP PRN ×2 (12:28→18:27)
--- NOTE | 2023-08-12 16:56 | P.PN ---
Subjective Progress Note Date: 08/12/23 Principal diagnosis: Metastatic lung cancer stage IV This is a 63-year-old female patient with a history of 40+ years of chronic tobacco dependence however quit in October 2022. She states she had a trip and fall back in March 2023 and was having ongoing issues with chest discomfort and did have a chest x-ray at the beginning of July. That chest x-ray was abnormal and she was sent to [facility] for a computed tomography scan of the chest approximately 2 weeks ago. Based on those findings she was sent to medical oncology who referred the patient here to the emergency department. A chest x-ray revealed a large left upper lung mass. A computed tomography scan of the chest abdomen and pelvis revealed a large infiltrative left upper lobe lung mass. This surrounds and narrows branches a left upper lobe bronchus and pulmonary artery within the left hilum. There is direct tumor extension into the left mediastinum to the margin of the aorta. Tumor also extends and continued daily with soft tissue metastasis in the left hilum. Multiple metastatic mediastinal nodes, prevascular, right and left paratracheal, subcarinal. Right hilar metastasis. Left supraclavicular metastasis. Infiltrate throughout the majority of the left upper lobe apart from the mass consistent with metastatic/lymphangitic spread of tumor. No clear evidence of right lung metastasis. There is diffuse hepatic metastasis. Enlarged shira hepatis nodes, likely metastatic. Soft tissue thickening in the distal stomach and duodenum, concerning for metastatic involvement versus inflammatory process. Multiple lytic osseous metastasis including: Sternal, left anterior T12 verteb maryan with mild pathologic compression deformity, right L5 transverse process, right proximal femur. White count 9.2. Hemoglobin 13.9. Platelets 242. Sodium 139. Potassium 4.5. Bicarb 29. BUN 11. Creatinine 0.6. Glucose 139. AST 90. ALT 81. Alk phos 532. Viral screen negative. She is seen today in consultation on the oncology unit. She is currently laying in bed. Awake and alert. She is having ongoing issues with neck sternal and spine discomfort. She denies any worsening shortness of breath. She denies any hemoptysis. No cough or congestion. She is currently on 2 L nasal cannula with O2 saturations in the 90s. Afebrile. Hemodynamically stable. She was initiated on Dilaudid for pain control. Patient was reevaluated today on 08/12/23, patient had an episode of shortness of breath last night, she was also wheezing, hence I recommended Lasix, updrafts, and I recommended Decadron. This morning she feels much better, breathing a lot easier, she believes the Lasix helped her the most. Patient is yet to be scheduled for tissue diagnosis by interventional radiology, she could have a tissue diagnosis from her left supraclavicular lymph nodes which are palpable or she could have biopsy from her liver, this will be decided upon by interventional radiology who has been consulted. In the meantime patient is being treated for intractable pain, and I believe patient is on 2 L nasal cannula with O2 sats of 91%. Objective - Vital Signs Vital signs: Vital Signs Temp 97.5 F L 08/12/23 11:33 Pulse 74 08/12/23 15:43 Resp 16 08/12/23 11:33 BP 135/81 08/12/23 11:33 Pulse Ox 91 L 08/12/23 11:33 FiO2 Intake & Output 08/11/23 08/12/23 08/12/23 18:59 06:59 18:59 Output Total 1200 Balance -1200 Weight 86.183 kg Output: Urine 1200 Other: Voiding Method Toilet Toilet Toilet # Voids 1 3 1 # Bowel Movements 1 # Emeses 1 - Exam GENERAL EXAM: Revealed a pleasant 63-year-old female in no distress on 2 L nasal cannula HEAD: Normocephalic. EYES: Normal reaction of pupils, equal size. NOSE: Clear with pink turbinates. THROAT: No erythema or exudates. NECK: Positive left supraclavicular lymphadenopathy CHEST: No chest wall deformity. Tender to palpation of the sternum. LUNGS: Diminished breath sound bilaterally minimal wheezing on forced expiratory maneuver CVS: S1 and S2 normal with no audible murmur, regular rhythm. ABDOMEN: Tender to palpation right quadrant, normal bowel sounds, no guarding or rigidity. SKIN: No rashes CENTRAL NERVOUS SYSTEM: Alert and oriented 3 no gross focal neurologic deficit Psychiatric: Normal mood affect and normal mental status examination EXTREMITIES: No clubbing edema or cyanosis, good pulses bilaterally - Labs CBC & Chem 7: 08/11/23 08:16 08/11/23 08:16 Assessment and Plan Assessment: Impression: Strongly suspect metastatic lung cancer, stage IV Left upper lobe mass highly consistent with bronchogenic carcinoma Abnormal recent CT of the chest suggestive of significant metastasis/cervical/supraclavicular/liver metastasis. And skeletal metastasis. Recommendation: Continue pain control management Interventional radiology was consulted Medical oncology is on the case Radiation oncology to be consulted by medical oncology Continue bronchodilators and steroids We'll continue to follow Time with Patient: Less than 30
--- NOTE | 2023-08-12 17:19 | P.PN ---
Subjective Progress Note Date: 08/12/23 Pt reporting persisting pain. IV pain meds are working but experiencing significant n/v with medications. Reports large BM yesterday Objective - Vital Signs Vital signs: Vital Signs Temp 97.5 F L 08/12/23 11:33 Pulse 74 08/12/23 15:43 Resp 16 08/12/23 11:33 BP 135/81 08/12/23 11:33 Pulse Ox 91 L 08/12/23 11:33 FiO2 Intake & Output 08/11/23 08/12/23 08/12/23 18:59 06:59 18:59 Output Total 1200 Balance -1200 Weight 86.183 kg Output: Urine 1200 Other: Voiding Method Toilet Toilet Toilet # Voids 1 3 1 # Bowel Movements 1 # Emeses 1 - Constitutional General appearance: Present: average body habitus, mild distress - EENT Eyes: Present: anicteric sclerae, EOMI ENT: Present: hearing grossly normal - Neck Neck: Absent: lymphadenopathy - Respiratory Details: breathing is even and unlabored - Cardiovascular Details: well perfused - Integumentary Integumentary: Absent: cyanotic - Musculoskeletal Musculoskeletal Comment(s): sternal and lower thoracic tenderness - Psychiatric Psychiatric: Present: A&O x's 3 - Labs CBC & Chem 7: 08/11/23 08:16 08/11/23 08:16 Assessment and Plan (1) Intractable pain Current Visit: Yes Status: Acute Priority: High Code(s): R52 - PAIN, UNSPECIFIED SNOMED Code(s): 15081761 (2) Constipation Current Visit: Yes Status: Acute Priority: High Code(s): K59.00 - CONSTIPATION, UNSPECIFIED SNOMED Code(s): 03799502 (3) Metastatic lung cancer (metastasis from lung to other site) Current Visit: Yes Status: Acute Priority: High Code(s): C34.90 - MALIGNANT NEOPLASM OF UNSP PART OF UNSP BRONCHUS OR LUNG SNOMED Code(s): 89657444 Plan: Metastatic disease, suspected lung primary: -CT of the chest with contrast on 07/16/2023 was notable for dense lobular opacity in the left upper lobe extending from the apex to the hilum measuring 8.3 x 4.5 cm and 9.4 cm in the craniocaudal dimension. The mass was contiguous with the left mediastinum, including a portion of the distal aortic arch and left main pulmonary artery. It was also notable for left supraclavicular, superior mediastinal, and bilateral hilar lymphadenopathy. Soft tissue lesion was noted in the left anterior aspect of the T12 vertebral body with cortical destruction measuring 1.9 x 2.6 cm. There is another soft tissue lesion in the mid sternum measuring 2.3 x 3 x 3.8 cm. Multiple defined hypodense lesions in the liver were also noted with the largest measuring 3.6 cm. Imaging findings are consistent with malignancy, likely stage IV primary lung cancer. -PET CT was rescheduled due to concerns for insurance and this has yet to be obtained. Brain MRI negative for metastasis. Biopsy was to be scheduled outpt with pulm but also has been delayed to concerns of insurance coverage. -Rad onc consulted for eval for palliative RT to osseous mets. Will plan for XRT to sternum T12 lesion -Pulmonology consulted for biopsy. They plan to hold bronch for now, and have IR evaluate for left supraclavicular biopsy. Biopsy scheduled for tomorrow. -Once biopsy is performed, tissue sample can be sent for NGS and PD-L1 testing in addition to obtaining circulating tumor DNA from the peripheral blood if this is non-small cell lung cancer -Once tissue biopsy obtained and diagnosis is confirmed, will have discussion with patient and family regarding treatment options and goals of care. Due to advanced metastatic disease and patient acute condition, will likely plan for cycle 1 inpt chemo once diagnosis confirmed Pt and updated on POC and are agreeable Intractable pain: -Pain has been progressing, c/o pain is worst across sternum and mid back. Known osseous mets to these areas -Rad onc consulted. Spoke with Dr. Rogel regarding case. Will plan for XRT to sternum and T12 lesion -Due to significant n/v with IV pain meds, will add fentanyl patch and continue dilaudid for severe breakthrough pain. Recommend to give anti-emetics prophylactically prior to IVP pain meds. Will continue to monitor with plans to transition to PO short acting analgesics prior to discharge to ensure adequate pain control -Once biopsy obtained tomorrow, will add 2 day course of decadron 8mg BID Constipation: -Reports having small BM 4 days ago. Been having issues with constipation x 1 month -Senokot-S and milk of magnesia added. Pt also drinking prune juice. Had large BM last night -Anti-emetic regimen adjusted
[2023-08-12] MEDS: SYMBICORT 160-4.5 MCG INHALER INHALATION SCH (18:36)
[2023-08-12] MEDS: methylPREDNISolone SOD SUCCI 40 MG/ML 1 ML VIAL IV SCH (22:42)
[2023-08-13] MEDS: SODIUM CHLORIDE 0.9% 1,000 ML IV SCH ×2 (04:31→12:06)
[2023-08-13] MEDS: ONDANSETRON 4 MG/2 ML VIAL IVP PRN ×3 (06:59→21:04)
[2023-08-13] MEDS: SYMBICORT 160-4.5 MCG INHALER INHALATION SCH ×2 (08:31→20:15)
[2023-08-13] MEDS: IPRATROPIUM-ALBUTEROL 3 ML NEB INHALATION SCH ×4 (08:32→20:15)
--- NOTE | 2023-08-13 08:35 | P.HPIM ---
History of Present Illness H&P Date: 08/11/23 Kianna Hayes is a 63 yo F with PMH of longstanding tobacco abuse, recently found to have metastatic cancer with suspected lung primary who is being worked up by Oncology. Around June 2023, she had progressive dyspnea and cough which did not resolve, CT of the chest with contrast on 07/16/2023 was notable for dense lobular opacity in the left upper lobe extending from the apex to the hilum measuring 8.3 x 4.5 cm and 9.4 cm in the craniocaudal dimension. The mass was contiguous with the left mediastinum, including a portion of the distal aortic arch and left main pulmonary artery. It was also notable for left supraclavicular, superior mediastinal, and bilateral hilar lymphadenopathy. S oft tissue lesion was noted in the left anterior aspect of the T12 vertebral body with cortical destruction measuring 1.9 x 2.6 cm. Multiple defined hypodense lesions in the liver were also noted with the largest measuring 3.6 cm. She complains of worsening chest wall pain and cough so came to the hospital. On presentation vitals stable, labs significant for Alk phos 500, LFTs in the 80s. CT chest/abd/pelvis redemonstrating diffuse metastatic disease. Review of Systems All systems: negative Constitutional: Reports malaise, Reports night sweats, Reports weight loss, Denies chills, Denies fever Eyes: denies blurred vision, denies pain Ears, nose, mouth and throat: Denies headache, Denies sore throat Cardiovascular: Denies chest pain, Denies shortness of breath Respiratory: Denies cough Gastrointestinal: Denies abdominal pain, Denies diarrhea, Denies nausea, Denies vomiting Genitourinary: Denies dysuria, Denies hematuria Musculoskeletal: Denies myalgias Integumentary: Denies pruritus, Denies rash Neurological: Denies numbness, Denies weakness Psychiatric: Denies anxiety, Denies depression Endocrine: Denies fatigue, Denies weight change Past Medical History Past Medical History: Cancer Additional Past Medical History / Comment(s): Lung cancer w/mets History of Any Multi-Drug Resistant Organisms: None Reported Past Surgical History: Hysterectomy, Orthopedic Surgery, Tonsillectomy Past Anesthesia/Blood Transfusion Reactions: No Reported Reaction Smoking Status: Former smoker - Past Family History Father Family Medical History: COPD Medications and Allergies Home Medications Medication Instructions Recorded Confirmed Type No Known Home Medications 08/10/23 08/10/23 History Allergies Allergy/AdvReac Type Severity Reaction Status Date / Time tramadol Allergy Rash/Hives Verified 08/10/23 15:47 hydrocodone [From [place]] AdvReac Nausea & Verified 08/10/23 15:47 Vomiting Physical Exam Vitals: Vital Signs Temp Pulse Pulse Resp BP Pulse Ox 08/13/23 07:30 97.8 F 84 18 166/66 90 L 08/13/23 02:00 97.8 F 92 16 151/72 98 08/12/23 20:00 97.4 F L 98 17 120/73 94 L 08/12/23 18:46 72 08/12/23 18:38 72 08/12/23 15:43 74 08/12/23 15:27 74 08/12/23 11:47 77 08/12/23 11:37 77 08/12/23 11:33 97.5 F L 78 16 135/81 91 L 08/12/23 08:36 92 Intake and Output 08/12/23 08/13/23 08/13/23 22:59 06:59 14:59 Output Total 500 Balance -500 Output: Urine 500 Other: Voiding Method Toilet # Voids 0 1 Gen: well developed well nourished F in NAD HEENT: NC/AT, mmm Neck: supple, no JVD or thyromegaly CV: RRR, no murmur Lungs: Normal effort, wheezing present Abd: soft, nontender, non distended Neuro: AAOx3 no focal deficit Skin: warm and dry Results CBC & Chem 7: 08/11/23 08:16 08/11/23 08:16 Thrombosis Risk Factor Assmnt - Choose All That Apply Each Risk Factor Represents 2 Points: Age 61-74 years Thrombosis Risk Factor Assessment Total Risk Factor Score: 2 Thrombosis Risk Factor Assessment Level: Low Risk Assessment and Plan Plan: Metastatic lung cancer. Admit and consult Oncology and pulmonology. Plan for biopsy before goals of care discussion. Pain control, start IV steroids
--- NOTE | 2023-08-13 08:37 | P.PN ---
Subjective Progress Note Date: 08/12/23 She feels her pain has been under improved control today. Pt had discussion with rad oncology and planning for radiation to sternal met Objective - Vital Signs Vital signs: Vital Signs Temp 97.8 F 08/13/23 07:30 Pulse 84 08/13/23 07:30 Resp 18 08/13/23 07:30 BP 166/66 08/13/23 07:30 Pulse Ox 90 L 08/13/23 07:30 FiO2 Intake & Output 08/12/23 08/13/23 08/13/23 18:59 06:59 18:59 Output Total 1200 500 Balance -1200 -500 Output: Urine 1200 500 Other: Voiding Method Toilet Toilet # Voids 1 0 1 - Exam Gen: well developed NAD CV: RRR Lungs: Normal effort, no rales - Labs CBC & Chem 7: 08/11/23 08:16 08/11/23 08:16 Assessment and Plan Plan: Continue with current regimen, await biopsy and plan for radiation. Continue with steroids and pain control
[2023-08-13] MEDS: HYDROmorphone 0.5 MG/0.5 ML SYRINGE IVP PRN ×2 (09:03→21:08)
[2023-08-13] MEDS: methylPREDNISolone SOD SUCCI 40 MG/ML 1 ML VIAL IV SCH ×2 (09:04→21:06)
[2023-08-13] MEDS: SENNOSIDES-DOCUSATE SODIUM 1 EACH TAB PO SCH ×2 (10:59→21:07)
[2023-08-13] MEDS: FAMOTIDINE 20 MG TAB PO SCH ×2 (10:59→21:08)
--- NOTE | 2023-08-13 12:41 | US ---
EXAMINATION TYPE: US biopsy lymph node DATE OF EXAM: 08/13/2023 10:41 AM CLINICAL INDICATION:Female, 63 years old with history of left neck mass. COMPARISON: 08/10/2023 ATTENDING: Dr. Marcin Ley PROCEDURE: Informed consent was obtained. The risks and benefits of the procedure were discussed with the patien t. The site was marked. Timeout procedure was performed Ultrasound imaging of the thyroid demonstrates left supraclavicular mass. The patient was prepped, draped in the usual sterile fashion, and locally anesthetized with 1% lidoca ine. 2 18-gauge core samples were obtained. Samples were sent to the pathology department for further analysis. Patient tolerated the procedure without incident and was sent home in stable condition. IMPRESSION: Successful ultrasound guided fine needle aspiration.
--- NOTE | 2023-08-13 14:48 | P.PN ---
Subjective Progress Note Date: 08/13/23 Pt reporting improvement in pain with fentanyl patch. Using IV pain meds less. Using anti-emtics before IV pain meds with improvement in n/v. S/p biopsy today, tolerated well. Objective - Vital Signs Vital signs: Vital Signs Temp 97.7 F 08/13/23 12:06 Pulse 92 08/13/23 12:06 Resp 18 08/13/23 12:06 BP 130/79 08/13/23 12:06 Pulse Ox 95 08/13/23 12:06 FiO2 Intake & Output 08/12/23 08/13/23 08/13/23 18:59 06:59 18:59 Output Total 1200 500 Balance -1200 -500 Weight 86.183 kg Output: Urine 1200 500 Other: Voiding Method Toilet Toilet Toilet # Voids 1 0 1 - Constitutional General appearance: Present: average body habitus, no acute distress - EENT Eyes: Present: anicteric sclerae, EOMI ENT: Present: hearing grossly normal - Respiratory Details: breathing even and unlabored - Cardiovascular Details: well perfused - Integumentary Integumentary: Absent: cyanotic - Musculoskeletal Musculoskeletal: Present: generalized weakness - Psychiatric Psychiatric: Present: A&O x's 3 - Labs CBC & Chem 7: 08/11/23 08:16 08/11/23 08:16 Assessment and Plan (1) Intractable pain Current Visit: Yes Status: Acute Priority: High Code(s): R52 - PAIN, UNSPECIFIED SNOMED Code(s): 77701222 (2) Constipation Current Visit: Yes Status: Acute Priority: High Code(s): K59.00 - CONSTIPATION, UNSPECIFIED SNOMED Code(s): 42579438 (3) Metastatic lung cancer (metastasis from lung to other site) Current Visit: Yes Status: Acute Priority: High Code(s): C34.90 - MALIGNANT NEOPLASM OF UNSP PART OF UNSP BRONCHUS OR LUNG SNOMED Code(s): 63891242 Plan: Metastatic disease, suspected lung primary: -CT of the chest with contrast on 07/16/2023 was notable for dense lobular opacity in the left upper lobe extending from the apex to the hilum measuring 8.3 x 4.5 cm and 9.4 cm in the craniocaudal dimension. The mass was contiguous with the left mediastinum, including a portion of the distal aortic arch and left main pulmonary artery. It was also notable for left supraclavicular, superior mediastinal, and bilateral hilar lymphadenopathy. Soft tissue lesion was noted in the left anterior aspect of the T12 vertebral body with cortical destruction measuring 1.9 x 2.6 cm. There is another soft tissue lesion in the mid sternum measuring 2.3 x 3 x 3.8 cm. Multiple defined hypodense lesions in the liver were also noted with the largest measuring 3.6 cm. Imaging findings are consistent with malignancy, likely stage IV primary lung cancer. -PET CT was rescheduled due to concerns for insurance and this has yet to be obtained. Brain MRI negative for metastasis. Biopsy was to be scheduled outpt with pulm but also has been delayed to concerns of insurance coverage. -Rad onc consulted for eval for palliative RT to osseous mets. Will plan for XRT to sternum and T12 lesion Wednesday, 08/16 -Pulmonology consulted for biopsy. They plan to hold bronch for now, and have IR evaluate for left supraclavicular biopsy. S/p biopsy today, tolerated procedure well. -Will request NGS and PD-L1 testing on pathology in addition to obtaining circulating tumor DNA from the peripheral blood if this is non-small cell lung cancer -Pending biopsy, will have discussion with patient and family regarding treatment options and goals of care. Due to advanced metastatic disease and patient acute condition, will likely plan for cycle 1 inpt chemo once diagnosis confirmed Pt and updated on POC and are agreeable Intractable pain: -Pain has been progressing, c/o pain is worst across sternum and mid back. Known osseous mets to these areas -Rad onc consulted. Spoke with Dr. Rogel regarding case. Will plan for simulation/XRT to sternum and T12 lesion on 08/16 -Due to significant n/v with IV pain meds, will add fentanyl patch and continue dilaudid for severe breakthrough pain. Reporting improvement in pain control with fentanyl. Recommend to give anti-emetics prophylactically prior to IVP pain meds. Will continue to monitor with plans to transition to PO short acting analgesics prior to discharge to ensure adequate pain control -Solumedrol 40mg q12hr ordered Constipation: -Been having issues with constipation x 1 month -Senokot-S and milk of magnesia added. Pt also drinking prune juice. Had large BM 2 days ago. Continue on bowel regimen -Anti-emetic regimen adjusted
--- NOTE | 2023-08-13 14:51 | P.PN ---
Subjective Progress Note Date: 08/13/23 This is a 63-year-old female patient with a history of 40+ years of chronic tobacco dependence however quit in October 2022. She states she had a trip and fall back in March 2023 and was having ongoing issues with chest discomfort and did have a chest x-ray at the beginning of July. That chest x-ray was abnormal and she was sent to [place] for a computed tomography scan of the chest approximately 2 weeks ago. Based on those findings she was sent to medical oncology who referred the patient here to the emergency department. A chest x-ray revealed a large left upper lung mass. A computed tomography scan of the chest abdomen and pelvis revealed a large infiltrative left upper lobe ruiz ng mass. This surrounds and narrows branches a left upper lobe bronchus and pulmonary artery within the left hilum. There is direct tumor extension into the left mediastinum to the margin of the aorta. Tumor also extends and continued daily with soft tissue metastasis in the left hilum. Multiple metastatic mediastinal nodes, prevascular, right and left paratracheal, subcarinal. Right hilar metastasis. Left supraclavicular metastasis. Infiltrate throughout the majority of the left upper lobe apart from the mass consistent with metastatic/lymphangitic spread of tumor. No clear evidence of right lung metastasis. There is diffuse hepatic metastasis. Enlarged shira hepatis nodes, likely metastatic. Soft tissue thickening in the distal stomach and duodenum, concerning for metastatic involvement versus inflammatory process. Multiple lytic osseous metastasis including: Sternal, left anterior T12 vertebrae with mild pathologic compression deformity, right L5 transverse process, right proximal femur. White count 9.2. Hemoglobin 13.9. Platelets 242. Sodium 139. Potassium 4.5. Bicarb 29. BUN 11. Creatinine 0.6. Glucose 139. AST 90. ALT 81. Alk phos 532. Viral screen negative. She is seen today in consultation on the oncology unit. She is currently laying in bed. Awake and alert. She is having ongoing issues with neck sternal and spine discomfort. She denies any worsening shortness of breath. She denies any hemoptysis. No cough or congestion. She is currently on 2 L nasal cannula with O2 saturations in the 90s. Afebrile. Hemodynamically stable. She was initiated on Dilaudid for pain control. Patient was reevaluated today on 08/12/23, patient had an episode of shortness of breath last night, she was also wheezing, hence I recommended Lasix, updrafts, and I recommended Decadron. This morning she feels much better, breathing a lot easier, she believes the Lasix helped her the most. Patient is yet to be scheduled for tissue diagnosis by interventional radiology, she could have a tissue diagnosis from her left supraclavicular lymph nodes which are palpable or she could have biopsy from her liver, this will be decided upon by interventional radiology who has been consulted. In the meantime patient is being treated for intractable pain, and I believe patient is on 2 L nasal cannula with O2 sats of 91%. The patient is seen today 08/13/2023 in follow-up on the regular medical floor. Resting fairly comfortably in bed. Awake and alert in no acute distress. He is maintaining O2 saturations in the mid 90s on room air. She's been afebrile. Hemodynamically stable. Plan is for a ultrasound-guided fine-needle aspiration of the left supraclavicular lymph nodes. He is continued on DuoNeb inhalations, Symbicort, Solu-Medrol. Her pain is currently well controlled. She has normal saline at 75 ML's per hour. Objective - Vital Signs Vital signs: Vital Signs Temp 97.7 F 08/13/23 12:06 Pulse 92 08/13/23 12:06 Resp 18 08/13/23 12:06 BP 130/79 08/13/23 12:06 Pulse Ox 95 08/13/23 12:06 FiO2 Intake & Output 08/12/23 08/13/23 08/13/23 18:59 06:59 18:59 Output Total 1200 500 Balance -1200 -500 Weight 86.183 kg Output: Urine 1200 500 Other: Voiding Method Toilet Toilet Toilet # Voids 1 0 1 - Exam GENERAL EXAM: Revealed a pleasant 63-year-old female, in no acute distress on room air HEAD: Normocephalic. EYES: Normal reaction of pupils, equal size. NOSE: Clear with pink turbinates. THROAT: No erythema or exudates. NECK: Positive left supraclavicular lymphadenopathy CHEST: No chest wall deformity. Tender to palpation of the sternum. LUNGS: Diminished breath sound bilaterally minimal wheezing on forced expiratory maneuver CVS: S1 and S2 normal with no audible murmur, regular rhythm. ABDOMEN: Tender to palpation right quadrant, normal bowel sounds, no guarding or rigidity. SKIN: No rashes CENTRAL NERVOUS SYSTEM: Alert and oriented 3 no gross focal neurologic deficit Psychiatric: Normal mood affect and normal mental status examination EXTREMITIES: No clubbing edema or cyanosis, good pulses bilaterally - Labs CBC & Chem 7: 08/11/23 08:16 08/11/23 08:16 Assessment and Plan Assessment: Skeletal pain including the neck, sternum and spine. A computed tomography scan of the chest abdomen and pelvis revealed a large infiltrative left upper lobe lung mass. This surrounds and narrows branches a left upper lobe bronchus and pulmonary artery within the left hilum. There is direct tumor extension into the left mediastinum to the margin of the aorta. Tumor also extends and continued daily with soft tissue metastasis in the left hilum. Multiple metastatic mediastinal nodes, prevascular, right and left paratracheal, subcarinal. Right hilar metastasis. Left supraclavicular metastasis. Infiltrate throughout the majority of the left upper lobe apart from the mass consistent with metastatic/lymphangitic spread of tumor. No clear evidence of right lung metastasis. There is diffuse hepatic metastasis. Enlarged shira hepatis nodes, likely metastatic. Soft tissue thickening in the distal stomach and duodenum, concerning for metastatic involvement versus inflammatory process. Multiple lytic osseous metastasis including: Sternal, left anterior T12 vertebrae with mild pathologic compression deformity, right L5 transverse process, right proximal femur. Plan is for ultrasound-guided fine-needle aspirate of the left supraclavicular neck mass/lymph nodes 08/13/2023 Large left upper lung mass suspect small cell lung cancer with significant metastasis including the liver and bone possible distal stomach and duodenum 40 year smoking history, quit in October 2022 History of trip and fall back in March 2023 with residual pain and discomfort leading to a chest x-ray in July 2023 Plan: The patient was seen and evaluated Medications reviewed Supraclavicular lymph node biopsy today by interventional radiology Pathology pending Currently stable and on room air Continue bronchodilators, steroids We will continue to follow I have personally seen and examined the patient, performed the documentation and the assessment and plan as written. Number of minutes spent on the visit: 10.
[2023-08-13] MEDS: PROCHLORPERAZINE INJ 10 MG/2 ML VIAL IVP PRN (14:57)
--- NOTE | 2023-08-13 22:32 | P.PN ---
Subjective Progress Note Date: 08/13/23 She is doing well today, awaiting biopsy, pt feels pain is currently under better control. She denies shortness of breath. She would like to be DNR. Objective - Vital Signs Vital signs: Vital Signs Temp 98.4 F 08/13/23 20:00 Pulse 90 08/13/23 20:30 Resp 20 08/13/23 20:00 BP 127/74 08/13/23 20:00 Pulse Ox 92 L 08/13/23 20:00 FiO2 Intake & Output 08/13/23 08/13/23 08/14/23 06:59 18:59 06:59 Output Total 500 Balance -500 Weight 86.183 kg Output: Urine 500 Other: Voiding Method Toilet Toilet # Voids 0 1 - Exam Gen: well developed NAD CV: RRR Lungs: Normal effort, no rales - Labs CBC & Chem 7: 08/11/23 08:16 08/11/23 08:16 Assessment and Plan Plan: Continue with current regimen, await biopsy and plan for radiation. Continue with steroids and pain control
[2023-08-14] MEDS: IBUPROFEN 800 MG TAB PO PRN ×2 (05:53→21:51)
[2023-08-14] MEDS: PROCHLORPERAZINE INJ 10 MG/2 ML VIAL IVP PRN ×2 (05:53→16:24)
[2023-08-14] MEDS: IPRATROPIUM-ALBUTEROL 3 ML NEB INHALATION SCH ×4 (08:31→20:28)
[2023-08-14] MEDS: SYMBICORT 160-4.5 MCG INHALER INHALATION SCH ×2 (08:31→20:29)
[2023-08-14] MEDS: methylPREDNISolone SOD SUCCI 40 MG/ML 1 ML VIAL IV SCH (09:58)
[2023-08-14] MEDS: FAMOTIDINE 20 MG TAB PO SCH ×2 (09:58→21:52)
[2023-08-14] MEDS: SENNOSIDES-DOCUSATE SODIUM 1 EACH TAB PO SCH ×2 (10:04→21:50)
--- NOTE | 2023-08-14 12:17 | P.PN ---
Subjective Progress Note Date: 08/14/23 This is a 63-year-old female patient with a history of 40+ years of chronic tobacco dependence however quit in October 2022. She states she had a trip and fall back in March 2023 and was having ongoing issues with chest discomfort and did have a chest x-ray at the beginning of July. That chest x-ray was abnormal and she was sent to [place] for a computed tomography scan of the chest approximately 2 weeks ago. Based on those findings she was sent to medical oncology who referred the patient here to the emergency department. A chest x-ray revealed a large left upper lung mass. A computed tomography scan of the chest abdomen and pelvis revealed a large infiltrative left upper lobe ruiz ng mass. This surrounds and narrows branches a left upper lobe bronchus and pulmonary artery within the left hilum. There is direct tumor extension into the left mediastinum to the margin of the aorta. Tumor also extends and continued daily with soft tissue metastasis in the left hilum. Multiple metastatic mediastinal nodes, prevascular, right and left paratracheal, subcarinal. Right hilar metastasis. Left supraclavicular metastasis. Infiltrate throughout the majority of the left upper lobe apart from the mass consistent with metastatic/lymphangitic spread of tumor. No clear evidence of right lung metastasis. There is diffuse hepatic metastasis. Enlarged shira hepatis nodes, likely metastatic. Soft tissue thickening in the distal stomach and duodenum, concerning for metastatic involvement versus inflammatory process. Multiple lytic osseous metastasis including: Sternal, left anterior T12 vertebrae with mild pathologic compression deformity, right L5 transverse process, right proximal femur. White count 9.2. Hemoglobin 13.9. Platelets 242. Sodium 139. Potassium 4.5. Bicarb 29. BUN 11. Creatinine 0.6. Glucose 139. AST 90. ALT 81. Alk phos 532. Viral screen negative. She is seen today in consultation on the oncology unit. She is currently laying in bed. Awake and alert. She is having ongoing issues with neck sternal and spine discomfort. She denies any worsening shortness of breath. She denies any hemoptysis. No cough or congestion. She is currently on 2 L nasal cannula with O2 saturations in the 90s. Afebrile. Hemodynamically stable. She was initiated on Dilaudid for pain control. Patient was reevaluated today on 08/12/23, patient had an episode of shortness of breath last night, she was also wheezing, hence I recommended Lasix, updrafts, and I recommended Decadron. This morning she feels much better, breathing a lot easier, she believes the Lasix helped her the most. Patient is yet to be scheduled for tissue diagnosis by interventional radiology, she could have a tissue diagnosis from her left supraclavicular lymph nodes which are palpable or she could have biopsy from her liver, this will be decided upon by interventional radiology who has been consulted. In the meantime patient is being treated for intractable pain, and I believe patient is on 2 L nasal cannula with O2 sats of 91%. The patient is seen today 08/13/2023 in follow-up on the regular medical floor. Resting fairly comfortably in bed. Awake and alert in no acute distress. He is maintaining O2 saturations in the mid 90s on room air. She's been afebrile. Hemodynamically stable. Plan is for a ultrasound-guided fine-needle aspiration of the left supraclavicular lymph nodes. He is continued on DuoNeb inhalations, Symbicort, Solu-Medrol. Her pain is currently well controlled. She has normal saline at 75 ML's per hour. The patient is seen today 08/14/2023 in follow-up on the regular medical floor. She is awake and alert in no acute distress. Sitting up in bed. Maintain O2 saturations in the 90s on 3 L/m per nasal cannula. She denies any worsening shortness of breath, cough or congestion. No hemoptysis. She's been afebrile. Hemodynamically stable. A biopsy of the left supraclavicular lymph node performed yesterday. Pathology is pending. No new labs today. She is continued on Symbicort, DuoNeb inhalations, Solu-Medrol. Pain is adequately controlled. Saline at 75 ML's per hour. Objective - Vital Signs Vital signs: Vital Signs Temp 98.0 F 08/14/23 07:29 Pulse 89 08/14/23 11:45 Resp 20 08/14/23 07:29 BP 150/78 08/14/23 07:29 Pulse Ox 94 L 08/14/23 08:34 FiO2 Intake & Output 01/05/24 01/06/24 01/06/24 18:59 06:59 18:59 Output Total 900 Balance -900 Weight 86.183 kg Output: Urine 900 Other: Voiding Method Toilet Toilet External Catheter # Voids 1 400 - Exam GENERAL EXAM: Revealed a pleasant 63-year-old female,sitting up in bed, on 3 L nasal cannula, in no acute distress HEAD: Normocephalic. EYES: Normal reaction of pupils, equal size. NOSE: Clear with pink turbinates. THROAT: No erythema or exudates. NECK: Positive left supraclavicular lymphadenopathy CHEST: No chest wall deformity. Tender to palpation of the sternum. LUNGS: Diminished breath sound bilaterally minimal wheezing on forced expiratory maneuver CVS: S1 and S2 normal with no audible murmur, regular rhythm. ABDOMEN: Tender to palpation right quadrant, normal bowel sounds, no guarding or rigidity. SKIN: No rashes CENTRAL NERVOUS SYSTEM: Alert and oriented 3 no gross focal neurologic deficit Psychiatric: Normal mood affect and normal mental status examination EXTREMITIES: No clubbing edema or cyanosis, good pulses bilaterally - Labs CBC & Chem 7: 08/11/23 08:16 08/11/23 08:16 Assessment and Plan Assessment: Skeletal pain including the neck, sternum and spine. A computed tomography scan of the chest abdomen and pelvis revealed a large infiltrative left upper lobe lung mass. This surrounds and narrows branches a left upper lobe bronchus and pulmonary artery within the left hilum. There is direct tumor extension into the left mediastinum to the margin of the aorta. Tumor also extends and continued daily with soft tissue metastasis in the left hilum. Multiple metas tatic mediastinal nodes, prevascular, right and left paratracheal, subcarinal. Right hilar metastasis. Left supraclavicular metastasis. Infiltrate throughout the majority of the left upper lobe apart from the mass consistent with metastatic/lymphangitic spread of tumor. No clear evidence of right lung metastasis. There is diffuse hepatic metastasis. Enlarged shira hepatis nodes, likely metastatic. Soft tissue thickening in the distal stomach and duodenum, concerning for metastatic involvement versus inflammatory process. Multiple lytic osseous metastasis including: Sternal, left anterior T12 vertebrae with mild pathologic compression deformity, right L5 transverse process, right prox imal femur. Ultrasound-guided fine-needle aspirate of the left supraclavicular neck mass/lymph nodes done on 08/13/2023 Large left upper lung mass suspect small cell lung cancer with significant met astasis including the liver and bone possible distal stomach and duodenum 40 year smoking history, quit in October 2022 History of trip and fall back in March 2023 with residual pain and discomfort l eading to a chest x-ray in July 2023 Plan: The patient was seen and evaluated Medications reviewed Pathology pending Evaluate for possible home oxygen Complete a prednisone taper Continue Symbicort, albuterol HFA Follow-up closely with oncology post discharge This patient was seen independently by the pulmonary nurse practitioner addressing pulmonary issue I have personally seen and examined the patient, performed the documentation and the assessment and plan as written. Number of minutes spent on the visit: 22.
[2023-08-14] MEDS: SODIUM CHLORIDE 0.9% 1,000 ML IV SCH ×2 (14:35)
--- NOTE | 2023-08-14 15:50 | P.PN ---
Subjective Progress Note Date: 08/14/23 This is a 63-year-old female patient with a history of 40+ years of chronic tobacco dependence however quit in October 2022. She states she had a trip and fall back in March 2023 and was having ongoing issues with chest discomfort and did have a chest x-ray at the beginning of July. That chest x-ray was abnormal and she was sent to [place] for a computed tomography scan of the chest approximately 2 weeks ago. Based on those findings she was sent to medical oncology who referred the patient here to the emergency department. A chest x-ray revealed a large left upper lung mass. A computed tomography scan of the chest abdomen and pelvis revealed a large infiltrative left upper lobe ruiz ng mass. This surrounds and narrows branches a left upper lobe bronchus and pulmonary artery within the left hilum. There is direct tumor extension into the left mediastinum to the margin of the aorta. Tumor also extends and continued daily with soft tissue metastasis in the left hilum. Multiple metastatic mediastinal nodes, prevascular, right and left paratracheal, subcarinal. Right hilar metastasis. Left supraclavicular metastasis. Infiltrate throughout the majority of the left upper lobe apart from the mass consistent with metastatic/lymphangitic spread of tumor. No clear evidence of right lung metastasis. There is diffuse hepatic metastasis. Enlarged shira hepatis nodes, likely metastatic. Soft tissue thickening in the distal stomach and duodenum, concerning for metastatic involvement versus inflammatory process. Multiple lytic osseous metastasis including: Sternal, left anterior T12 vertebrae with mild pathologic compression deformity, right L5 transverse process, right proximal femur. White count 9.2. Hemoglobin 13.9. Platelets 242. Sodium 139. Potassium 4.5. Bicarb 29. BUN 11. Creatinine 0.6. Glucose 139. AST 90. ALT 81. Alk phos 532. Viral screen negative. She is seen today in consultation on the oncology unit. She is currently laying in bed. Awake and alert. She is having ongoing issues with neck sternal and spine discomfort. She denies any worsening shortness of breath. She denies any hemoptysis. No cough or congestion. She is currently on 2 L nasal cannula with O2 saturations in the 90s /. Patient seen and examined. Vital signs stable. REVIEW OF SYSTEMS: CONSTITUTIONAL: No fever, no malaise,. CARDIOVASCULAR: No chest pain, no palpitations, no syncope. PULMONARY: No shortness of breath, no cough, GASTROINTESTINAL: No diarrhea, no nausea, no vomiting, no abdominal pain. NEUROLOGICAL: No headaches, no weakness, PHYSICAL EXAMINATION: GENERAL: The patient is alert and oriented x3, not in any acute distress. CARDIOVASCULAR: S1 and S2 present. No murmurs, rubs, or gallops. PULMONARY: Chest is clear to auscultation, no wheezing or crackles. ABDOMEN: Soft, nontender, nondistended, normoactive bowel sounds. No palpable organomegaly. MUSCULOSKELETAL: No joint swelling or deformity. EXTREMITIES: No cyanosis, clubbing, or pedal edema. NEUROLOGICAL: Gross neurological examination did not reveal any focal deficits. SKIN: No rashes. Assessment and plan Intractable pain constipation Metastatic lung cancer Monitor vital signs Monitor CBC Monitor CMP Continue pain control Continue aggressive bowel regimen Status post left supraclavicular biopsy pulmonary following Oncology following Labs and medication were reviewed.. Continue same treatment. Continue with symptomatic treatment. Resume home medication. Monitor labs and vitals. DVT and GI prophylaxis. Further recommendations as per clinical course of the patient Dictation was produced using [employer] dictation software. please excuse any grammatical, word or spelling errors. Objective - Vital Signs Vital signs: Vital Signs Temp 97.9 F 08/14/23 13:35 Pulse 94 08/14/23 13:35 Resp 16 08/14/23 13:35 BP 151/78 08/14/23 13:35 Pulse Ox 91 L 08/14/23 13:35 FiO2 Intake & Output 08/13/23 08/14/23 08/14/23 18:59 06:59 18:59 Output Total 900 Balance -900 Weight 86.183 kg Output: Urine 900 Other: Voiding Method Toilet Toilet Toilet External Catheter External Catheter # Voids 1 400 - Labs CBC & Chem 7: 08/11/23 08:16 08/11/23 08:16
[2023-08-14] MEDS: HYDROmorphone 0.5 MG/0.5 ML SYRINGE IVP PRN (16:24)
[2023-08-14] MEDS: ONDANSETRON 4 MG/2 ML VIAL IVP PRN (21:52)
[2023-08-15] MEDS: ACETAMINOPHEN TAB 325 MG TAB PO PRN (01:53)
[2023-08-15] MEDS: IPRATROPIUM-ALBUTEROL 3 ML NEB INHALATION PRN (02:13)
[2023-08-15] MEDS: IPRATROPIUM-ALBUTEROL 3 ML NEB INHALATION SCH ×4 (08:17→21:29)
[2023-08-15] MEDS: SYMBICORT 160-4.5 MCG INHALER INHALATION SCH ×2 (08:17→21:29)
[2023-08-15] MEDS: predniSONE 20 MG TAB PO SCH (09:33)
[2023-08-15] MEDS: FAMOTIDINE 20 MG TAB PO SCH ×2 (09:33→21:43)
[2023-08-15] MEDS: SENNOSIDES-DOCUSATE SODIUM 1 EACH TAB PO SCH ×2 (09:34→21:43)
--- NOTE | 2023-08-15 12:39 | P.PN ---
Subjective Progress Note Date: 08/15/23 This is a 63-year-old female patient with a history of 40+ years of chronic tobacco dependence however quit in October 2022. She states she had a trip and fall back in March 2023 and was having ongoing issues with chest discomfort and did have a chest x-ray at the beginning of July. That chest x-ray was abnormal and she was sent to [place] for a computed tomography scan of the chest approximately 2 weeks ago. Based on those findings she was sent to medical oncology who referred the patient here to the emergency department. A chest x-ray revealed a large left upper lung mass. A computed tomography scan of the chest abdomen and pelvis revealed a large infiltrative left upper lobe ruiz ng mass. This surrounds and narrows branches a left upper lobe bronchus and pulmonary artery within the left hilum. There is direct tumor extension into the left mediastinum to the margin of the aorta. Tumor also extends and continued daily with soft tissue metastasis in the left hilum. Multiple metastatic mediastinal nodes, prevascular, right and left paratracheal, subcarinal. Right hilar metastasis. Left supraclavicular metastasis. Infiltrate throughout the majority of the left upper lobe apart from the mass consistent with metastatic/lymphangitic spread of tumor. No clear evidence of right lung metastasis. There is diffuse hepatic metastasis. Enlarged shira hepatis nodes, likely metastatic. Soft tissue thickening in the distal stomach and duodenum, concerning for metastatic involvement versus inflammatory process. Multiple lytic osseous metastasis including: Sternal, left anterior T12 vertebrae with mild pathologic compression deformity, right L5 transverse process, right proximal femur. White count 9.2. Hemoglobin 13.9. Platelets 242. Sodium 139. Potassium 4.5. Bicarb 29. BUN 11. Creatinine 0.6. Glucose 139. AST 90. ALT 81. Alk phos 532. Viral screen negative. She is seen today in consultation on the oncology unit. She is currently laying in bed. Awake and alert. She is having ongoing issues with neck sternal and spine discomfort. She denies any worsening shortness of breath. She denies any hemoptysis. No cough or congestion. She is currently on 2 L nasal cannula with O2 saturations in the 90s. Afebrile. Hemodynamically stable. She was initiated on Dilaudid for pain control. Patient was reevaluated today on 08/12/23, patient had an episode of shortness of breath last night, she was also wheezing, hence I recommended Lasix, updrafts, and I recommended Decadron. This morning she feels much better, breathing a lot easier, she believes the Lasix helped her the most. Patient is yet to be scheduled for tissue diagnosis by interventional radiology, she could have a tissue diagnosis from her left supraclavicular lymph nodes which are palpable or she could have biopsy from her liver, this will be decided upon by interventional radiology who has been consulted. In the meantime patient is being treated for intractable pain, and I believe patient is on 2 L nasal cannula with O2 sats of 91%. The patient is seen today 08/13/2023 in follow-up on the regular medical floor. Resting fairly comfortably in bed. Awake and alert in no acute distress. He is maintaining O2 saturations in the mid 90s on room air. She's been afebrile. Hemodynamically stable. Plan is for a ultrasound-guided fine-needle aspiration of the left supraclavicular lymph nodes. He is continued on DuoNeb inhalations, Symbicort, Solu-Medrol. Her pain is currently well controlled. She has normal saline at 75 ML's per hour. The patient is seen today 08/14/2023 in follow-up on the regular medical floor. She is awake and alert in no acute distress. Sitting up in bed. Maintain O2 saturations in the 90s on 3 L/m per nasal cannula. She denies any worsening shortness of breath, cough or congestion. No hemoptysis. She's been afebrile. Hemodynamically stable. A biopsy of the left supraclavicular lymph node performed yesterday. Pathology is pending. No new labs today. She is continued on Symbicort, DuoNeb inhalations, Solu-Medrol. Pain is adequately controlled. Saline at 75 ML's per hour. The patient is seen today 08/15/2023 in follow-up on the regular medical floor. She is currently laying in bed. Awake and alert in no acute distress. Denies any worsening shortness of breath, cough or congestion. She is maintaining O2 saturations in the 90s on 3 L/m per nasal cannula. She's afebrile. Hemodynamically stable. She did undergo fine-needle aspirate of the left supraclavicular lymph nodes on 08/13/2023. Pathology pending. She's been seen by both medical and radiation oncology. She remains on DuoNeb inhalations, Symbicort, prednisone taper. Saline 20 ML's per hour. Pain currently controlled. Objective - Vital Signs Vital signs: Vital Signs Temp 97.7 F 08/15/23 07:29 Pulse 96 08/15/23 11:35 Resp 20 08/15/23 08:55 BP 132/76 08/15/23 07:29 Pulse Ox 90 L 08/15/23 08:20 FiO2 Intake & Output 08/14/23 08/15/23 08/15/23 18:59 06:59 18:59 Intake Total 360 Balance 360 Intake: Oral 360 Other: Voiding Method Toilet Toilet Toilet External Catheter External Catheter External Catheter # Voids 3 - Exam GENERAL EXAM: Revealed a pleasant 63-year-old female, on 3 L nasal cannula, in no acute distress HEAD: Normocephalic. EYES: Normal reaction of pupils, equal size. NOSE: Clear with pink turbinates. THROAT: No erythema or exudates. NECK: Positive left supraclavicular lymphadenopathy CHEST: No chest wall deformity. Tender to palpation of the sternum. LUNGS: Diminished breath sound bilaterally minimal wheezing on forced expiratory maneuver CVS: S1 and S2 normal with no audible murmur, regular rhythm. ABDOMEN: Tender to palpation right quadrant, normal bowel sounds, no guarding or rigidity. SKIN: No rashes CENTRAL NERVOUS SYSTEM: Alert and oriented 3 no gross focal neurologic deficit Psychiatric: Normal mood affect and normal mental status examination EXTREMITIES: No clubbing edema or cyanosis, good pulses bilaterally - Labs CBC & Chem 7: 08/11/23 08:16 08/11/23 08:16 Assessment and Plan Assessment: Skeletal pain including the neck, sternum and spine. A computed tomography scan of the chest abdomen and pelvis revealed a large infiltrative left upper lobe lung mass. This surrounds and narrows branches a left upper lobe bronchus and pulmonary artery within the left hilum. There is direct tumor extension into the left mediastinum to the margin of the aorta. Tumor also extends and continued daily with soft tissue metastasis in the left hilum. Multiple metastatic mediastinal nodes, prevascular, right and left paratracheal, subcarinal. Right hilar metastasis. Left supraclavicular metastasis. Infiltrate throughout the majority of the left upper lobe apart from the mass consistent with metastatic/lymphangitic spread of tumor. No clear evidence of right lung metastasis. There is diffuse hepatic metastasis. Enlarged shira hepatis nodes, likely metastatic. Soft tissue thickening in the distal stomach and duodenum, concerning for metastatic involvement versus inflammatory process. Multiple lytic osseous metastasis including: Sternal, left anterior T12 vertebrae with mild pathologic compression deformity, right L5 transverse p rocess, right proximal femur. Ultrasound-guided fine-needle aspirate of the left supraclavicular neck mass/lymph nodes done on 08/13/2023. Pathology pending Large left upper lung mass suspect small cell lung cancer with significant metastasis including the liver and bone possible distal stomach and duodenum 40 year smoking history, quit in October 2022 History of trip and fall back in March 2023 with residual pain and discomfort leading to a chest x-ray in July 2023 Plan: The patient was seen and evaluated Medications reviewed Pathology pending Evaluate for possible home oxygen Continue with the current treatment plan Will need outpatient PET scan Follow-up closely with radiation/medical oncology post discharge I have personally seen and examined the patient, performed the documentation and the assessment and plan as written. Number of minutes spent on the visit: 10.
[2023-08-15] MEDS ORDERED: FLUTICASONE 50MCG/SPRAY NASAL 16GM EA NOSTRIL PRN (13:49)
--- NOTE | 2023-08-15 14:00 | P.PN ---
Subjective Progress Note Date: 08/15/23 This is a 63-year-old female patient with a history of 40+ years of chronic tobacco dependence however quit in October 2022. She states she had a trip and fall back in March 2023 and was having ongoing issues with chest discomfort and did have a chest x-ray at the beginning of July. That chest x-ray was abnormal and she was sent to [place] for a computed tomography scan of the chest approximately 2 weeks ago. Based on those findings she was sent to medical oncology who referred the patient here to the emergency department. A chest x-ray revealed a large left upper lung mass. A computed tomography scan of the chest abdomen and pelvis revealed a large infiltrative left upper lobe ruiz ng mass. This surrounds and narrows branches a left upper lobe bronchus and pulmonary artery within the left hilum. There is direct tumor extension into the left mediastinum to the margin of the aorta. Tumor also extends and continued daily with soft tissue metastasis in the left hilum. Multiple metastatic mediastinal nodes, prevascular, right and left paratracheal, subcarinal. Right hilar metastasis. Left supraclavicular metastasis. Infiltrate throughout the majority of the left upper lobe apart from the mass consistent with metastatic/lymphangitic spread of tumor. No clear evidence of right lung metastasis. There is diffuse hepatic metastasis. Enlarged shira hepatis nodes, likely metastatic. Soft tissue thickening in the distal stomach and duodenum, concerning for metastatic involvement versus inflammatory process. Multiple lytic osseous metastasis including: Sternal, left anterior T12 vertebrae with mild pathologic compression deformity, right L5 transverse process, right proximal femur. White count 9.2. Hemoglobin 13.9. Platelets 242. Sodium 139. Potassium 4.5. Bicarb 29. BUN 11. Creatinine 0.6. Glucose 139. AST 90. ALT 81. Alk phos 532. Viral screen negative. She is seen today in consultation on the oncology unit. She is currently laying in bed. Awake and alert. She is having ongoing issues with neck sternal and spine discomfort. She denies any worsening shortness of breath. She denies any hemoptysis. No cough or congestion. She is currently on 2 L nasal cannula with O2 saturations in the 90s 08/14. Patient seen and examined. Vital signs stable. 08/15. Patient seen and examined. Still complaining of generalized body aches. Denies any shortness of breath. Discussed with patient's family, they want to talk with Dr. Falcon in the morning REVIEW OF SYSTEMS: CONSTITUTIONAL: No fever, no malaise,. CARDIOVASCULAR: No chest pain, no palpitations, no syncope. PULMONARY: No shortness of breath, no cough, GASTROINTESTINAL: No diarrhea, no nausea, no vomiting, no abdominal pain. NEUROLOGICAL: No headaches, no weakness, PHYSICAL EXAMINATION: GENERAL: The patient is alert and oriented x3, not in any acute distress. CARDIOVASCULAR: S1 and S2 present. No murmurs, rubs, or gallops. PULMONARY: Chest is clear to auscultation, no wheezing or crackles. ABDOMEN: Soft, nontender, nondistended, normoactive bowel sounds. No palpable organomegaly. MUSCULOSKELETAL: No joint swelling or deformity. EXTREMITIES: No cyanosis, clubbing, or pedal edema. NEUROLOGICAL: Gross neurological examination did not reveal any focal deficits. SKIN: No rashes. Assessment and plan Intractable pain constipation Metastatic lung cancer Monitor vital signs Monitor CBC Monitor CMP Continue pain control Continue aggressive bowel regimen Status post left supraclavicular biopsy pulmonary following Oncology following Labs and medication were reviewed.. Continue same treatment. Continue with symptomatic treatment. Resume home medication. Monitor labs and vitals. DVT and GI prophylaxis. Further recommendations as per clinical course of the patient Dictation was produced using [employer] dictation software. please excuse any grammatical, word or spelling errors. Objective - Vital Signs Vital signs: Vital Signs Temp 98.3 F 08/15/23 12:34 Pulse 75 08/15/23 12:34 Resp 16 08/15/23 12:34 BP 145/83 08/15/23 12:34 Pulse Ox 91 L 08/15/23 12:34 FiO2 Intake & Output 08/14/23 08/15/23 08/15/23 18:59 06:59 18:59 Intake Total 360 Balance 360 Intake: Oral 360 Other: Voiding Method Toilet Toilet Toilet External Catheter External Catheter External Catheter # Voids 3 - Labs CBC & Chem 7: 08/11/23 08:16 08/11/23 08:16
[2023-08-15] MEDS: SODIUM CHLORIDE 0.9% 1,000 ML IV SCH (15:03)
[2023-08-15] MEDS: PROCHLORPERAZINE INJ 10 MG/2 ML VIAL IVP PRN (18:45)
[2023-08-15] MEDS: HYDROmorphone 0.5 MG/0.5 ML SYRINGE IVP PRN (18:45)
[2023-08-15] MEDS ORDERED: TEMAZEPAM 7.5 MG CAP PO PRN (21:07)
[2023-08-16] MEDS: ACETAMINOPHEN TAB 325 MG TAB PO PRN ×2 (02:02→10:39)
[2023-08-16] MEDS: IPRATROPIUM-ALBUTEROL 3 ML NEB INHALATION SCH ×4 (07:46→18:10)
[2023-08-16] MEDS: SYMBICORT 160-4.5 MCG INHALER INHALATION SCH ×2 (07:46→18:10)
[2023-08-16] MEDS: SENNOSIDES-DOCUSATE SODIUM 1 EACH TAB PO SCH ×2 (08:30→20:47)
[2023-08-16] MEDS: FAMOTIDINE 20 MG TAB PO SCH ×2 (08:31→20:47)
[2023-08-16] MEDS: predniSONE 20 MG TAB PO SCH (08:31)
--- NOTE | 2023-08-16 09:05 | P.PN ---
Subjective Progress Note Date: 08/16/23 Principal diagnosis: Lung cancer. This is a 63-year-old female patient with a history of 40+ years of chronic tobacco dependence however quit in October 2022. She states she had a trip and fall back in March 2023 and was having ongoing issues with chest discomfort and did have a chest x-ray at the beginning of July. That chest x-ray was abnormal and she was sent to [place] for a computed tomography scan of the chest approximately 2 weeks ago. Based on those findings she was sent to medical oncology who referred the patient here to the emergency department. A chest x-ray revealed a large left upper lung mass. A computed tomography scan of the chest abdomen and pelvis revealed a large infiltrative left upper lobe lung mass. This surrounds and narrows branches a left upper lobe bronchus and pulmonary artery within the left hilum. There is direct tumor extension into the left mediastinum to the margin of the aorta. Tumor also extends and continued daily with soft tissue metastasis in the left hilum. Multiple metastatic mediastinal nodes, prevascular, right and left paratracheal, subcarinal. Right hilar metastasis. Left supraclavicular metastasis. Infiltrate throughout the majority of the left upper lobe apart from the mass consistent with metastatic/lymphangitic spread of tumor. No clear evidence of right lung metastasis. There is diffuse hepatic metastasis. Enlarged shira hepatis nodes, likely metastatic. Soft tissue thickening in the distal stomach and duodenum, concerning for metastatic involvement versus inflammatory process. Multiple lytic osseous metastasis including: Sternal, left anterior T12 vertebrae with mild pathologic compression deformity, right L5 transverse process, right proximal femur. White count 9.2. Hemoglobin 13.9. Platelets 242. Sodium 139. Potassium 4.5. Bicarb 29. BUN 11. Creatinine 0.6. Glucose 139. AST 90. ALT 81. Alk phos 532. Viral screen negative. She is seen today in consultation on the oncology unit. She is currently laying in bed. Awake and alert. She is having ongoing issues with neck sternal and spine discomfort. She denies any worsening shortness of breath. She denies any hemoptysis. No cough or congestion. She is currently on 2 L nasal cannula with O2 saturations in the 90s. Afebrile. Hemodynamically stable. She was initiated on Dilaudid for pain control. Patient was reevaluated today on 08/12/23, patient had an episode of shortness of breath last night, she was also wheezing, hence I recommended Lasix, updrafts, and I recommended Decadron. This morning she feels much better, breathing a lot easier, she believes the Lasix helped her the most. Patient is yet to be scheduled for tissue diagnosis by interventional radiology, she could have a tissue diagnosis from her left supraclavicular lymph nodes which are palpable or she could have biopsy from her liver, this will be decided upon by interventional radiology who has been consulted. In the meantime patient is being treated for intractable pain, and I believe patient is on 2 L nasal cannul a with O2 sats of 91%. The patient is seen today 08/13/2023 in follow-up on the regular medical floor. Resting fairly comfortably in bed. Awake and alert in no acute distress. He is maintaining O2 saturations in the mid 90s on room air. She's been afebrile. Hemodynamically stable. Plan is for a ultrasound-guided fine-needle aspiration of the left supraclavicular lymph nodes. He is continued on DuoNeb inhalations, Symbicort, Solu-Medrol. Her pain is currently well controlled. She has normal saline at 75 ML's per hour. The patient is seen today 08/14/2023 in follow-up on the regular medical floor. She is awake and alert in no acute distress. Sitting up in bed. Maintain O2 saturations in the 90s on 3 L/m per nasal cannula. She denies any worsening shortness of breath, cough or congestion. No hemoptysis. She's been afebrile. Hemodynamically stable. A biopsy of the left supraclavicular lymph node performed yesterday. Pathology is pending. No new labs today. She is cont inued on Symbicort, DuoNeb inhalations, Solu-Medrol. Pain is adequately controlled. Saline at 75 ML's per hour. The patient is seen today 08/15/2023 in follow-up on the regular medical floor. She is currently laying in bed. Awake and alert in no acute distress. Denies any worsening shortness of breath, cough or congestion. She is maintaining O2 saturations in the 90s on 3 L/m per nasal cannula. She's afebrile. Hemodynamically stable. She did undergo fine-needle aspirate of the left sup raclavicular lymph nodes on 08/13/2023. Pathology pending. She's been seen by both medical and radiation oncology. She remains on DuoNeb inhalations, Symbicort, prednisone taper. Saline 20 ML's per hour. Pain currently controlled. Progress note dated 08/16/2023. The patient is seen today in room 519. The patient is currently on 3 L of oxygen. Saturations are 96%. She's getting saline at 20 mL an hour. Her pain is well-controlled. She is hoping to be discharged soon. She had a fine-needle aspiration of the left supraclavicular lymph node, on August 13. Biopsy results are currently pending. No new labs today. Objective - Vital Signs Vital signs: Vital Signs Temp 97.6 F 08/16/23 07:44 Pulse 73 08/16/23 07:58 Resp 16 08/16/23 07:44 BP 161/79 08/16/23 07:44 Pulse Ox 96 08/16/23 07:49 FiO2 Intake & Output 08/15/23 08/16/23 08/16/23 18:59 06:59 18:59 Intake Total 360 590 Balance 360 590 Intake: Oral 360 590 Other: Voiding Method Toilet Toilet External Catheter External Catheter # Voids 3 - Exam No acute distress, oriented 3. Currently on 3 L of oxygen. No respiratory distress. HEENT examination is grossly unremarkable. Mucous membranes are moist. No oral lesions. Neck supple. Full range of motion. No thyromegaly or neck vein distention. Left supraclavicular lymphadenopathy. Cardiovascular examination reveals regular rhythm rate. S1-S2 normal. No S3 or S4. No discernible murmur noted. Heart rate 73 bpm. Lungs reveal clear breath sounds. Breath sounds are equal bilaterally. No adventitious lung sounds including wheezes rhonchi or crackles. Abdomen soft bowel sounds are heard. No masses or tenderness. Extremities are intact. No cyanosis clubbing or edema. Skin is without rash or lesion. Neurologic examination is brief but nonfocal. - Labs CBC & Chem 7: 08/11/23 08:16 08/11/23 08:16 Assessment and Plan Assessment: Skeletal pain including the neck, sternum and spine. A computed tomography scan of the chest abdomen and pelvis revealed a large infiltrative left upper lobe lung mass. This surrounds and narrows branches a left upper lobe bronchus and pulmonary artery within the left hilum. There is direct tumor extension into the left mediastinum to the margin of the aorta. Tumor also extends and continued daily with soft tissue metastasis in the left hilum. Multiple metastatic mediastinal nodes, prevascular, right and left paratracheal, subcarinal. Right hilar metastasis. Left supraclavicular metastasis. Infiltrate throughout the majority of the left upper lobe apart from the mass consistent with metastatic/lymphangitic spread of tumor. No clear evidence of right lung metastasis. There is diffuse hepatic metastasis. Enlarged shira hepatis nodes, likely metastatic. Soft tissue thickening in the distal stomach and duodenum, concerning for metastatic involvement versus inflammatory process. Multiple lytic osseous metastasis including: Sternal, left anterior T12 vertebrae with mild pathologic compression deformity, right L5 transverse process, right proximal femur. Ultrasound-guided fine-needle aspirate of the left supraclavicular neck mass/lymph nodes done on 08/13/2023. Pathology pending. Large left upper lung mass suspect small cell lung cancer with significant metastasis including the liver and bone possible distal stomach and duodenum. 40 year smoking history, quit in October 2022. History of trip and fall back in March 2023 with residual pain and discomfort leading to a chest x-ray in July 2023. Plan: Plan dated 08/16/2023. The patient had her biopsy performed on August 13. The results are currently pending. The patient is currently on oxygen at 3 L by nasal cannula. She's getting saline at 20 mL an hour. She is a DO NOT RESUSCITATE patient. Biopsy results may not be available until later this week. The patient could be considered for possible discharge. She will need an outpatient PET scan. Labs, x-rays, and medications are all reviewed. Prognosis is guarded. Time with Patient: Less than 30
--- NOTE | 2023-08-16 13:07 | P.PN ---
Subjective Progress Note Date: 08/16/23 Pt reporting improvement in pain with fentanyl patch. Using IV pain meds less. Using anti-emtics before IV pain meds with improvement in n/v. Biopsy pending. Plan to start simulation today with rad onc. Objective - Vital Signs Vital signs: Vital Signs Temp 97.6 F 08/16/23 07:44 Pulse 73 08/16/23 07:58 Resp 16 08/16/23 07:44 BP 161/79 08/16/23 07:44 Pulse Ox 96 08/16/23 07:49 FiO2 Intake & Output 08/15/23 08/16/23 08/16/23 18:59 06:59 18:59 Intake Total 360 590 Balance 360 590 Intake: Oral 360 590 Other: Voiding Method Toilet Toilet Toilet External Catheter External Catheter # Voids 3 - Constitutional General appearance: Present: average body habitus, no acute distress - EENT Eyes: Present: anicteric sclerae, EOMI ENT: Present: hearing grossly normal - Respiratory Details: breathing is even and unlabored - Cardiovascular Details: skin warm and dry - Integumentary Integumentary: Absent: cyanotic - Musculoskeletal Musculoskeletal: Present: generalized weakness - Psychiatric Psychiatric: Present: A&O x's 3 - Labs CBC & Chem 7: 08/11/23 08:16 08/11/23 08:16 Assessment and Plan (1) Intractable pain Current Visit: Yes Status: Acute Priority: High Code(s): R52 - PAIN, UNSPECIFIED SNOMED Code(s): 50554584 (2) Constipation Current Visit: Yes Status: Acute Priority: High Code(s): K59.00 - CONSTIPATION, UNSPECIFIED SNOMED Code(s): 74853353 (3) Metastatic lung cancer (metastasis from lung to other site) Current Visit: Yes Status: Acute Priority: High Code(s): C34.90 - MALIGNANT NEOPLASM OF UNSP PART OF UNSP BRONCHUS OR LUNG SNOMED Code(s): 73491168 Plan: Metastatic disease, suspected lung primary: -CT of the chest with contrast on 07/16/2023 was notable for dense lobular opacity in the left upper lobe extending from the apex to the hilum measuring 8.3 x 4.5 cm and 9.4 cm in the craniocaudal dimension. The mass was contiguous with the left mediastinum, including a portion of the distal aortic arch and left main pulmonary artery. It was also notable for left supraclavicular, superior mediastinal, and bilateral hilar lymphadenopathy. Soft tissue lesion was noted in the left anterior aspect of the T12 vertebral body with cortical destruction measuring 1.9 x 2.6 cm. There is another soft tissue lesion in the mid sternum measuring 2.3 x 3 x 3.8 cm. Multiple defined hypodense lesions in the liver were also noted with the largest measuring 3.6 cm. Imaging findings are consistent with malignancy, likely stage IV primary lung cancer. -PET CT was rescheduled due to concerns for insurance and this has yet to be obtained. Brain MRI negative for metastasis. Biopsy was to be scheduled outpt with pulm but also has been delayed to concerns of insurance coverage. -Rad onc consulted for eval for palliative RT to osseous mets. Plan for simulation today for XRT to sternum and T12 lesion -Pulmonology consulted for biopsy. They plan to hold bronch for now, and have IR evaluate for left supraclavicular biopsy. Biopsy pending, hope to have results in the next 1-2 days -Will request NGS and PD-L1 testing on pathology in addition to obtaining circulating tumor DNA from the peripheral blood if this is non-small cell lung cancer -Pending biopsy, will have discussion with patient and family regarding treatment options and goals of care. Due to advanced metastatic disease and patients acute condition, will consider starting cycle 1 inpt chemo once diagnosis confirmed Pt and updated on POC and are agreeable Intractable pain: -Pain has been progressing, c/o pain is worst across sternum and mid back. Known osseous mets to these areas -Rad onc consulted. Spoke with Dr. Rogel regarding case. Will plan for simulation/XRT to sternum and T12 today -Due to significant n/v with IV pain meds, will add fentanyl patch and continue dilaudid for severe breakthrough pain. Reporting improvement in pain control with fentanyl. Pt only using 1 dose of IVP diluadid, will transition to oral regimen, norco 7.5mg. Recommend to give anti-emetics prophylactically prior to pain meds. Will continue to monitor pain to ensure adequate pain control upon discharge -Prednisone ordered Constipation: -Been having issues with constipation x 1 month -Senokot-S and milk of magnesia added. Pt also drinking prune juice. Continue on bowel regimen -Anti-emetic regimen adjusted
[2023-08-16] MEDS: SODIUM CHLORIDE 0.9% 1,000 ML IV SCH (13:18)
[2023-08-16] MEDS: MAGNESIUM HYDROXIDE 2,400 MG/30 ML CUP PO PRN (14:14)
[2023-08-16] MEDS: HYDROcodone/APAP 7.5-325MG 1 EACH TAB PO PRN (15:31)
[2023-08-16] MEDS: IBUPROFEN 800 MG TAB PO PRN (15:40)
--- NOTE | 2023-08-16 18:37 | P.PN ---
Subjective Progress Note Date: 08/16/23 H&P Date: 08/11/23 Kianna Hayes is a 63 yo F with PMH of longstanding tobacco abuse, recently found to have metastatic cancer with suspected lung primary who is being worked up by Oncology. Around June 2023, she had progressive dyspnea and cough which did not resolve, CT of the chest with contrast on 07/16/2023 was notable for dense lobular opacity in the left upper lobe extending from the apex to the hilum measuring 8.3 x 4.5 cm and 9.4 cm in the craniocaudal dimension. The mass was contiguous with the left mediastinum, including a portion of the distal aortic arch and left main pulmonary artery. It was also notable for left supraclavicular, superior mediastinal, and bilateral hilar lymphadenopathy. Soft tissue lesion was noted in the left anterior aspect of the T12 vertebral body with cortical destruction measuring 1.9 x 2.6 cm. Multiple defined hypodense lesions in the liver were also noted with the largest measuring 3.6 cm. She complains of worsening chest wall pain and cough so came to the hospital. On presentation vitals stable, labs significant for Alk phos 500, LFTs in the 80s. CT chest/abd/pelvis redemonstrating diffuse metastatic disease. 08/12/23 She feels her pain has been under improved control today. Pt had discussion with rad oncology and planning for radiation to sternal met. 08/13/23 She is doing well today, awaiting biopsy, pt feels pain is currently under better control. She denies shortness of breath. She would like to be DNR. 08/16/2023 Over the weekend she had a left supraclavicular lymph node biopsy/aspiration performed , biopsy results pending .Pain currently controlled at rest. Continues on both IV and oral pain medications. Reports she increased her activity yesterday and tolerated well. Maintaining O2 sats in the 90s on 3 L nasal cannula. Objective - Vital Signs Vital signs: Vital Signs Temp 97.4 F L 08/16/23 14:00 Pulse 80 08/16/23 18:10 Resp 16 08/16/23 14:00 BP 164/70 08/16/23 14:00 Pulse Ox 91 L 08/16/23 14:00 FiO2 Intake & Output 08/15/23 08/16/23 08/16/23 18:59 06:59 18:59 Intake Total 360 590 Balance 360 590 Intake: Oral 360 590 Other: Voiding Method Toilet Toilet Toilet External Catheter External Catheter # Voids 3 2 - Exam PHYSICAL EXAM: VITAL SIGNS: [As above] GENERAL: Alert and oriented 3, Sitting up in bed, no acute distress HEENT: Normocephalic, Conjunctivae normal. eyes normal. NECK: Supple, no JVD. Left supraclavicular lymphadenopathy. CARDIOVASCULAR: S1, S2 regular.No murmur RESPIRATION: Unlabored ,Breath sounds diminished in the bases. No rhonchi or crackles. ABDOMEN: Soft, nondistended nontender . No guarding. No rigidity . Positive Bowel sounds heard. LEGS: No edema. no swelling. No cyanosis or clubbing. NERVOUS SYSTEM: No focal deficits Skin: Warm and dry, no rash - Labs CBC & Chem 7: 08/11/23 08:16 08/11/23 08:16 Assessment and Plan Assessment: Metastatic lung cancer Left supraclavicular biopsy, pathology pending. Intractable pain Constipation Former nicotine dependence Marijuana use Plan: Continue on current medication regime ,monitoring and symptomatic treatment. Pathology pending. Recommended patient use only oral pain medication to evaluate if pain remains controlled she will not have access to IV pain medication outpatient. Continue increasing activity today. Discussed discharge planning in progress for tomorrow. Follow closely with radiation, medical oncology. Palliative RT. Pain management as per oncology. Outpatient PET scan. Cleared by pulmonary for discharge. The impression and plan of care has been dictated as directed. : I performed a history and examination of this patient, discussed the same with the dictator. I agree with the dictator's note ,documented as a scribe. Any additional findings or plans will be noted.
[2023-08-17] MEDS: ONDANSETRON 4 MG/2 ML VIAL IVP PRN (04:44)
[2023-08-17] MEDS: HYDROmorphone 0.5 MG/0.5 ML SYRINGE IVP PRN (04:45)
[2023-08-17] MEDS: IPRATROPIUM-ALBUTEROL 3 ML NEB INHALATION SCH ×4 (07:52→21:29)
[2023-08-17] MEDS: SYMBICORT 160-4.5 MCG INHALER INHALATION SCH ×2 (07:52→21:29)
--- NOTE | 2023-08-17 08:02 | P.PN ---
Subjective Progress Note Date: 08/17/23 Principal diagnosis: metastatic lung cancer The patient reports her pain is a bit better controlled today (08/16/23). Her primary sites of pain are still in the sternum and back. She is also having some pain/stiffness in the neck as well. She does not believe this relates to her recent biopsy. Objective - Vital Signs Vital signs: Vital Signs Temp 97.9 F 08/17/23 01:09 Pulse 80 08/17/23 07:52 Resp 17 08/17/23 01:09 BP 152/71 08/17/23 01:09 Pulse Ox 92 L 08/17/23 01:09 FiO2 Intake & Output 08/16/23 08/17/23 08/17/23 18:59 06:59 18:59 Other: Voiding Method Toilet Bedside Commode # Voids 2 1 - Constitutional General appearance: Present: no acute distress - EENT Eyes: Present: EOMI, PERRLA ENT: Present: hearing grossly normal - Neck Neck: Present: lymphadenopathy (left SCV) - Respiratory Respiratory: right: diminished, left: CTA - Cardiovascular Rhythm: regular - Gastrointestinal General gastrointestinal: Absent: distended, tenderness - Integumentary Integumentary: Absent: rash - Neurologic Neurologic: Present: CNII-XII intact - Psychiatric Psychiatric: Present: A&O x's 3, appropriate affect - Labs CBC & Chem 7: 08/11/23 08:16 08/11/23 08:16 Assessment and Plan Assessment: 63 year-old female with newly diagnosed left lung cancer presenting with metastatic disease to the bone/liver. She presents secondary to intractable pain. Plan: 1. Pain: Secondary to bone metastases. Better controlled on current regimen, but still quite painful with movement. I discussed with the patient that she would come down for CT simulation on 08/16 (already done) and we would scan the sternum and T-spine. We will evaluate the C-spine as well due to the neck pain, but there is no known disease there. Considering the patient is likely to be hospitalized for a few more days - we will do single fraction palliative RT to the Sternum and T-12 area. I discussed with the patient this would have possible side effects such as fatigue, skin irritation, nausea, dyspepsia and low risk of late toxicity considering palliative dosing. 2. Lung cancer: Biopsy still pending at this time, however picture is consistent with metastatic lung cancer. Will hopefully have preliminary path report in the next 1-2 days. Secondary to pain, we will move forward with rad iotherapy despite not having final biopsy results. Time with Patient: Less than 30
[2023-08-17] MEDS ORDERED: polyethylene glycoL 3350 17 GM POWD.PACK PO STA (08:31)
[2023-08-17] MEDS: SENNOSIDES-DOCUSATE SODIUM 1 EACH TAB PO SCH ×2 (08:33→21:11)
[2023-08-17] MEDS: FAMOTIDINE 20 MG TAB PO SCH ×2 (08:33→21:10)
[2023-08-17] MEDS: predniSONE 20 MG TAB PO SCH (08:34)
[2023-08-17] MEDS: PROCHLORPERAZINE INJ 10 MG/2 ML VIAL IVP PRN (09:07)
[2023-08-17] MEDS: METOCLOPRAMIDE 5 MG TAB PO SCH ×2 (09:08→16:53)
[2023-08-17] MEDS ORDERED: ONDANSETRON 4 MG/2 ML VIAL IVP PRN (10:35)
[2023-08-17] MEDS ORDERED: ZOLEDRONIC ACID 4 MG in SODIUM CHLORIDE 0.9% 100 ML IV ONE (11:00)
--- NOTE | 2023-08-17 11:31 | P.PN ---
Subjective Progress Note Date: 08/17/23 Pt reporting improvement in pain with fentanyl patch. Using IV pain meds less. Using anti-emetics before IV pain meds with improvement in n/v. Biopsy pending. Plan to start XRT today to T12 lesion and sternum. Objective - Vital Signs Vital signs: Vital Signs Temp 97.6 F 08/17/23 07:21 Pulse 80 08/17/23 08:03 Resp 16 08/17/23 07:21 BP 146/80 08/17/23 07:21 Pulse Ox 92 L 08/17/23 07:21 FiO2 Intake & Output 08/16/23 08/17/23 08/17/23 18:59 06:59 18:59 Other: Voiding Method Toilet Bedside Commode Bedside Commode # Voids 2 1 - Constitutional General appearance: Present: average body habitus, no acute distress - EENT Eyes: Present: anicteric sclerae, EOMI ENT: Present: hearing grossly normal - Respiratory Details: breathing is even and unlabored - Cardiovascular Details: skin warm and dry - Integumentary Integumentary: Absent: cyanotic - Musculoskeletal Musculoskeletal: Present: strength equal bilaterally - Psychiatric Psychiatric: Present: A&O x's 3 - Labs CBC & Chem 7: 08/11/23 08:16 08/11/23 08:16 Assessment and Plan (1) Intractable pain Current Visit: Yes Status: Acute Priority: High Code(s): R52 - PAIN, UNSPECIFIED SNOMED Code(s): 29361089 (2) Constipation Current Visit: Yes Status: Acute Priority: High Code(s): K59.00 - CONS TIPATION, UNSPECIFIED SNOMED Code(s): 73612321 (3) Metastatic lung cancer (metastasis from lung to other site) Current Visit: Yes Status: Acute Priority: High Code(s): C34.90 - MALIGNANT NEOPLASM OF UNSP PART OF UNSP BRONCHUS OR LUNG SNOMED Code(s): 40236988 Plan: Metastatic disease, suspected lung primary: -CT of the chest with contrast on 07/16/2023 was notable for dense lobular opacity in the left upper lobe extending from the apex to the hilum measuring 8.3 x 4.5 cm and 9.4 cm in the craniocaudal dimension. The mass was contiguous with the left mediastinum, including a portion of the distal aortic arch and left main pulmonary artery. It was also notable for left supraclavicular, superior mediastinal, and bilateral hilar lymphadenopathy. Soft tissue lesion was noted in the left anterior aspect of the T12 vertebral body with cortical destruction measuring 1.9 x 2.6 cm. There is another soft tissue lesion in the mid sternum measuring 2.3 x 3 x 3.8 cm. Multiple defined hypodense lesions in the liver were also noted with the largest measuring 3.6 cm. Imaging findings are consistent with malignancy, likely stage IV primary lung cancer. -PET CT was rescheduled due to concerns for insurance and this has yet to be obtained. Brain MRI negative for metastasis. Biopsy was to be scheduled outpt with pulm but also has been delayed to concerns of insurance coverage. -Rad onc consulted for eval for palliative RT to osseous mets. Plan for simulation today for XRT to sternum and T12 lesion -Pulmonology consulted for biopsy. They plan to hold bronch for now, and have IR evaluate for left supraclavicular biopsy. Biopsy pending, hope to have results in the next 1-2 days -Will request NGS and PD-L1 testing on pathology in addition to obtaining circulating tumor DNA from the peripheral blood if this is non-small cell lung cancer -Pending biopsy, will have discussion with patient and family regarding treatment options and goals of care. Due to advanced metastatic disease and patients intractable pain, will consider starting cycle 1 inpt chemo once diagnosis confirmed Pt and updated on POC and are agreeable Intractable pain: -Pain has been progressing, c/o pain is worst across sternum and mid back. Known osseous mets to these areas -Rad onc consulted. Spoke with Dr. Rogel regarding case. Scheduled for simulation/XRT to sternum and T12 -Due to significant n/v with IV pain meds, will add fentanyl patch and continue dilaudid for severe breakthrough pain. Reporting improvement in pain control with fentanyl. Pt only using 1 dose of IVP diluadid daily. [place] started, however pt reports history of n/v with norco in the past. Will start pt on luis eduled zofran TID, and continue zofran and compazine PRN to see if this helps with opiate induced nausea. Will continue to monitor pain to ensure adequate pain control upon discharge -Continues on prednisone -1 dose zometa ordered Constipation: -Been having issues with constipation x 1 month -Senokot-S and milk of magnesia added. Pt also drinking prune juice. Continue on bowel regimen -Anti-emetic regimen adjusted
[2023-08-17] MEDS: SODIUM CHLORIDE 0.9% 1,000 ML IV SCH (13:07)
--- NOTE | 2023-08-17 15:52 | P.PN ---
Subjective Progress Note Date: 08/17/23 This is a 63-year-old female patient with a history of 40+ years of chronic tobacco dependence however quit in October 2022. She states she had a trip and fall back in March 2023 and was having ongoing issues with chest discomfort and did have a chest x-ray at the beginning of July. That chest x-ray was abnormal and she was sent to [place] for a computed tomography scan of the chest approximately 2 weeks ago. Based on those findings she was sent to medical oncology who referred the patient here to the emergency department. A chest x-ray revealed a large left upper lung mass. A computed tomography scan of the chest abdomen and pelvis revealed a large infiltrative left upper lobe ruiz ng mass. This surrounds and narrows branches a left upper lobe bronchus and pulmonary artery within the left hilum. There is direct tumor extension into the left mediastinum to the margin of the aorta. Tumor also extends and continued daily with soft tissue metastasis in the left hilum. Multiple metastatic mediastinal nodes, prevascular, right and left paratracheal, subcarinal. Right hilar metastasis. Left supraclavicular metastasis. Infiltrate throughout the majority of the left upper lobe apart from the mass consistent with metastatic/lymphangitic spread of tumor. No clear evidence of right lung metastasis. There is diffuse hepatic metastasis. Enlarged shira hepatis nodes, likely metastatic. Soft tissue thickening in the distal stomach and duodenum, concerning for metastatic involvement versus inflammatory process. Multiple lytic osseous metastasis including: Sternal, left anterior T12 vertebrae with mild pathologic compression deformity, right L5 transverse process, right proximal femur. White count 9.2. Hemoglobin 13.9. Platelets 242. Sodium 139. Potassium 4.5. Bicarb 29. BUN 11. Creatinine 0.6. Glucose 139. AST 90. ALT 81. Alk phos 532. Viral screen negative. She is seen today in consultation on the oncology unit. She is currently laying in bed. Awake and alert. She is having ongoing issues with neck sternal and spine discomfort. She denies any worsening shortness of breath. She denies any hemoptysis. No cough or congestion. She is currently on 2 L nasal cannula with O2 saturations in the 90s. Afebrile. Hemodynamically stable. She was initiated on Dilaudid for pain control. Patient was reevaluated today on 08/12/23, patient had an episode of shortness of breath last night, she was also wheezing, hence I recommended Lasix, updrafts, and I recommended Decadron. This morning she feels much better, breathing a lot easier, she believes the Lasix helped her the most. Patient is yet to be scheduled for tissue diagnosis by interventional radiology, she could have a tissue diagnosis from her left supraclavicular lymph nodes which are palpable or she could have biopsy from her liver, this will be decided upon by interventional radiology who has been consulted. In the meantime patient is being treated for intractable pain, and I believe patient is on 2 L nasal cannula with O2 sats of 91%. The patient is seen today 08/13/2023 in follow-up on the regular medical floor. Resting fairly comfortably in bed. Awake and alert in no acute distress. He is maintaining O2 saturations in the mid 90s on room air. She's been afebrile. Hemodynamically stable. Plan is for a ultrasound-guided fine-needle aspiration of the left supraclavicular lymph nodes. He is continued on DuoNeb inhalations, Symbicort, Solu-Medrol. Her pain is currently well controlled. She has normal saline at 75 ML's per hour. The patient is seen today 08/14/2023 in follow-up on the regular medical floor. She is awake and alert in no acute distress. Sitting up in bed. Maintain O2 saturations in the 90s on 3 L/m per nasal cannula. She denies any worsening shortness of breath, cough or congestion. No hemoptysis. She's been afebrile. Hemodynamically stable. A biopsy of the left supraclavicular lymph node performed yesterday. Pathology is pending. No new labs today. She is continued on Symbicort, DuoNeb inhalations, Solu-Medrol. Pain is adequately controlled. Saline at 75 ML's per hour. The patient is seen today 08/15/2023 in follow-up on the regular medical floor. She is currently laying in bed. Awake and alert in no acute distress. Denies any worsening shortness of breath, cough or congestion. She is maintaining O2 saturations in the 90s on 3 L/m per nasal cannula. She's afebrile. Hemodynamically stable. She did undergo fine-needle aspirate of the left supraclavicular lymph nodes on 08/13/2023. Pathology pending. She's been seen by both medical and radiation oncology. She remains on DuoNeb inhalations, Symbicort, prednisone taper. Saline 20 ML's per hour. Pain currently controlled. Progress note dated 08/16/2023. The patient is seen today in room 519. The patient is currently on 3 L of oxygen. Saturations are 96%. She's getting saline at 20 mL an hour. Her pain is well-controlled. She is hoping to be discharged soon. She had a fine-needle aspiration of the left supraclavicular lymph node, on August 13. Biopsy results are currently pending. No new labs today. The patient is seen today 08/17/2023 for follow-up on the regular medical floor. She is currently sitting up in a chair at the bedside. Awake and alert in no acute distress. She is maintaining good O2 saturations in the 90s on 3 L/m per nasal cannula. No IV fluids. Lymph node biopsy from the left supra clavicular mass is positive for metastatic poorly differentiated carcinoma but final characterization is pending. She is being initiated on palliative radiation therapy to T12 lesion and the sternum per radiation oncology. No new labs today. Remains on DuoNeb inhalations, Symbicort, prednisone taper. Objective - Vital Signs Vital signs: Vital Signs Temp 97.4 F L 08/17/23 12:46 Pulse 79 08/17/23 12:46 Resp 16 08/17/23 12:46 BP 148/83 08/17/23 12:46 Pulse Ox 93 L 08/17/23 12:46 FiO2 Intake & Output 08/16/23 08/17/23 08/17/23 18:59 06:59 18:59 Other: Voiding Method Toilet Bedside Commode Bedside Commode # Voids 2 1 - Exam GENERAL EXAM: Awake, alert pleasant 63-year-old female, sitting up in a chair, on 3 L nasal cannula, in no acute distress HEAD: Normocephalic. EYES: Normal reaction of pupils, equal size. NOSE: Clear with pink turbinates. THROAT: No erythema or exudates. NECK: Positive left supraclavicular lymphadenopathy CHEST: No chest wall deformity. Tender to palpation of the sternum. LUNGS: Diminished breath sound bilaterally minimal wheezing on forced expiratory maneuver CVS: S1 and S2 normal with no audible murmur, regular rhythm. ABDOMEN: Tender to palpation right quadrant, normal bowel sounds, no guarding or rigidity. SKIN: No rashes CENTRAL NERVOUS SYSTEM: Alert and oriented 3 no gross focal neurologic deficit Psychiatric: Normal mood affect and normal mental status examination EXTREMITIES: No clubbing edema or cyanosis, good pulses bilaterally - Labs CBC & Chem 7: 08/11/23 08:16 08/11/23 08:16 Assessment and Plan Assessment: Skeletal pain including the neck, sternum and spine. A computed tomography scan of the chest abdomen and pelvis revealed a large infiltrative left upper lobe lung mass. This surrounds and narrows branches a left upper lobe bronchus and pulmonary artery within the left hilum. There is direct tumor extension into the left mediastinum to the margin of the aorta. Tumor also extends and continued daily with soft tissue metastasis in the left hilum. Multiple metastatic mediastinal nodes, prevascular, right and left paratracheal, subcarinal. Right hilar metastasis. Left supraclavicular metastasis. Infiltrate throughout the majority of the left upper lobe apart from the mass consistent with metastatic/lymphangitic spread of tumor. No clear evidence of right lung metastasis. There is diffuse hepatic metastasis. Enlarged shira hepatis nodes, likely metastatic. Soft tissue thickening in the distal stomach and duodenum, concerning for metastatic involvement versus inflammatory process. Multiple lytic osseous metastasis including: Sternal, left anterior T12 vertebrae with mild pathologic compression deformity, right L5 transverse process, right proximal femur. Ultrasound-guided fine-needle aspirate of the left supraclavicular neck mass/lymph nodes done on 08/13/2023. Pathology positive for metastatic poorly differentiated carcinoma, final characterization is pending. Been initiated on palliative radiation to T12 and the sternum today 08/17/2023 Large left upper lung mass suspect small cell lung cancer with significant metastasis including the liver and bone possible distal stomach and duodenum 40 year smoking history, quit in October 2022 History of trip and fall back in March 2023 with residual pain and discomfort leading to a chest x-ray in July 2023 Plan: The patient was seen and evaluated Medications reviewed Pathology results reviewed Continue with the current treatment plan Initiated on palliative radiation today Titrate the FiO2 as tolerated This patient was seen independently by the pulmonary nurse practitioner addressing pulmonary issues I have personally seen and examined the patient, performed the documentation and the assessment and plan as written. Number of minutes spent on the visit: 24.
[2023-08-17] MEDS: ONDANSETRON 4 MG TAB PO SCH ×2 (16:53→23:13)
[2023-08-17] MEDS: HYDROcodone/APAP 7.5-325MG 1 EACH TAB PO PRN (21:10)
[2023-08-18] MEDS: ACETAMINOPHEN TAB 325 MG TAB PO PRN (06:43)
[2023-08-18] MEDS: SYMBICORT 160-4.5 MCG INHALER INHALATION SCH ×2 (07:39→20:06)
[2023-08-18] MEDS: IPRATROPIUM-ALBUTEROL 3 ML NEB INHALATION SCH ×4 (07:39→20:06)
[2023-08-18] MEDS: ONDANSETRON 4 MG TAB PO SCH ×3 (08:26→23:13)
[2023-08-18] MEDS: SENNOSIDES-DOCUSATE SODIUM 1 EACH TAB PO SCH ×2 (08:27→20:22)
[2023-08-18] MEDS: METOCLOPRAMIDE 5 MG TAB PO SCH ×2 (08:27→17:29)
[2023-08-18] MEDS: predniSONE 20 MG TAB PO SCH (08:27)
[2023-08-18] MEDS: FAMOTIDINE 20 MG TAB PO SCH ×2 (08:27→20:22)
[2023-08-18] MEDS: IBUPROFEN 800 MG TAB PO PRN ×2 (11:11→20:22)
--- NOTE | 2023-08-18 12:05 | P.PN ---
Subjective Progress Note Date: 08/17/23 H&P Date: 08/11/23 Kianna Hayes is a 63 yo F with PMH of longstanding tobacco abuse, recently found to have metastatic cancer with suspected lung primary who is being worked up by Oncology. Around June 2023, she had progressive dyspnea and cough which did not resolve, CT of the chest with contrast on 07/16/2023 was notable for dense lobular opacity in the left upper lobe extending from the apex to the hilum measuring 8.3 x 4.5 cm and 9.4 cm in the craniocaudal dimension. The mass was contiguous with the left mediastinum, including a portion of the distal aortic arch and left main pulmonary artery. It was also notable for left supraclavicular, superior mediastinal, and bilateral hilar lymphadenopathy. Soft tissue lesion was noted in the left anterior aspect of the T12 vertebral body with cortical destruction measuring 1.9 x 2.6 cm. Multiple defined hypodense lesions in the liver were also noted with the largest measuring 3.6 cm. She complains of worsening chest wall pain and cough so came to the hospital. On presentation vitals stable, labs significant for Alk phos 500, LFTs in the 80s. CT chest/abd/pelvis redemonstrating diffuse metastatic disease. 08/12/23 She feels her pain has been under improved control today. Pt had discussion with rad oncology and planning for radiation to sternal met. 08/13/23 She is doing well today, awaiting biopsy, pt feels pain is currently under better control. She denies shortness of breath. She would like to be DNR. 08/16/2023 Over the weekend she had a left supraclavicular lymph node biopsy/aspiration performed , biopsy results pending .Pain currently controlled at rest. Continues on both IV and oral pain medications. Reports she increased her activity yesterday and tolerated well. Maintaining O2 sats in the 90s on 3 L nasal cannula. 08/17/23 scheduled to receive her first dose of palliative radiation treatment today. Lymph node biopsy noted, reporting positive for metastatic poorly differentiated carcinoma but specific immune receptors pending. Complains of pain management induced nausea. Reports no bowel movement. Denies chest pain, palpitations or shortness of breath-reported shortness of breath last night. Maintaining O2 sats in the 90s on 3 L nasal cannula. Objective - Vital Signs Vital signs: Vital Signs Temp 97.4 F L 08/17/23 12:46 Pulse 76 08/17/23 15:42 Resp 16 08/17/23 12:46 BP 148/83 08/17/23 12:46 Pulse Ox 93 L 08/17/23 12:46 FiO2 Intake & Output 08/16/23 08/17/23 08/17/23 18:59 06:59 18:59 Other: Voiding Method Toilet Bedside Commode Bedside Commode # Voids 2 1 - Exam PHYSICAL EXAM: VITAL SIGNS: [As above] GENERAL: Alert and oriented 3, Sitting up in bed, no acute distress HEENT: Normocephalic, Conjunctivae normal. NECK: Supple, no JVD. Left supraclavicular lymphadenopathy. CARDIOVASCULAR: S1, S2 regular.No murmur RESPIRATION: Unlabored , bilateral bases diminished. No rhonchi or crackles. ABDOMEN: Soft, nondistended nontender . No guarding. Positive Bowel sounds heard. LEGS: No edema. no swelling. No cyanosis or clubbing. Positive DP pulses. NERVOUS SYSTEM: No focal deficits Skin: Warm and dry, no rash. - Labs CBC & Chem 7: 08/11/23 08:16 08/11/23 08:16 Assessment and Plan Assessment: Metastatic lung cancer Left supraclavicular biopsy, pathology positive for metastatic poorly differentiated carcinoma, final characterization pending. Intractable pain Constipation Former nicotine dependence Marijuana use Plan: Continue on current medication regime ,monitoring and symptomatic treatment. Reglan added to med regimen in regards to patient's ongoing nausea. MiraLAX ordered. Pain management as per oncology.Palliative RT been initiated today. Oncology discussing initiating also IV chemotherapy inpatient . Follow closely with oncology and radiation oncology. The impression and plan of care has been dictated as directed. : I performed a history and examination of this patient, discussed the same with the dictator. I agree with the dictator's note ,documented as a scribe. Any additional findings or plans will be noted.
--- NOTE | 2023-08-18 12:31 | P.PN ---
Subjective Progress Note Date: 08/18/23 H&P Date: 08/11/23 Kianna Hayes is a 63 yo F with PMH of longstanding tobacco abuse, recently found to have metastatic cancer with suspected lung primary who is being worked up by Oncology. Around June 2023, she had progressive dyspnea and cough which did not resolve, CT of the chest with contrast on 07/16/2023 was notable for dense lobular opacity in the left upper lobe extending from the apex to the hilum measuring 8.3 x 4.5 cm and 9.4 cm in the craniocaudal dimension. The mass was contiguous with the left mediastinum, including a portion of the distal aortic arch and left main pulmonary artery. It was also notable for left supraclavicular, superior mediastinal, and bilateral hilar lymphadenopathy. Soft tissue lesion was noted in the left anterior aspect of the T12 vertebral body with cortical destruction measuring 1.9 x 2.6 cm. Multiple defined hypodense lesions in the liver were also noted with the largest measuring 3.6 cm. She complains of worsening chest wall pain and cough so came to the hospital. On presentation vitals stable, labs significant for Alk phos 500, LFTs in the 80s. CT chest/abd/pelvis redemonstrating diffuse metastatic disease. 08/12/23 She feels her pain has been under improved control today. Pt had discussion with rad oncology and planning for radiation to sternal met. 08/13/23 She is doing well today, awaiting biopsy, pt feels pain is currently under better control. She denies shortness of breath. She would like to be DNR. 08/16/2023 Over the weekend she had a left supraclavicular lymph node biopsy/aspiration performed , biopsy results pending .Pain currently controlled at rest. Continues on both IV and oral pain medications. Reports she increased her activity yesterday and tolerated well. Maintaining O2 sats in the 90s on 3 L nasal cannula. 08/17/23 scheduled to receive her first dose of palliative radiation treatment today. Lymph node biopsy noted, reporting positive for metastatic poorly differentiated carcinoma but specific immune receptors pending. Complains of pain management induced nausea. Reports no bowel movement. Denies chest pain, palpitations or shortness of breath-reported shortness of breath last night. Maintaining O2 sats in the 90s on 3 L nasal cannula. 08/18/23 "Feels rested today."received first dose of palliative radiation yesterday, tolerated procedure well. Fentanyl patch added to med regimen yesterday. Reports pain unchanged in her sternum and back, currently rating it as 02/15. Reglan initiated yesterday with nausea lessened. Positive bowel movement yesterday. Denies chest pain, palpitations or shortness of breath. Maintaining O2 sats in the low 90s on 3 L nasal cannula. Afebrile. Objective - Vital Signs Vital signs: Vital Signs Temp 97.7 F 08/18/23 07:18 Pulse 84 08/18/23 07:53 Resp 18 08/18/23 07:18 BP 149/79 08/18/23 07:18 Pulse Ox 90 L 08/18/23 07:18 FiO2 Intake & Output 08/17/23 08/18/23 08/18/23 18:59 06:59 18:59 Intake Total 590 Balance 590 Intake: Oral 590 Other: Voiding Method Bedside Commode Bedside Commode # Voids 1 # Bowel Movements 1 - Exam PHYSICAL EXAM: VITAL SIGNS: [As above] GENERAL: Alert and oriented 3, Sitting up in chair, no acute distress HEENT: Normocephalic, Conjunctivae normal. NECK: Supple, no JVD. Left supraclavicular lymphadenopathy. CARDIOVASCULAR: S1, S2 regular.No murmur RESPIRATION: Unlabored, bilateral bases diminished. No rhonchi or crackles. ABDOMEN: Soft, nondistended nontender . No rigidity ,+BS LEGS: No edema. no swelling. No cyanosis or clubbing. Positive DP pulses. NERVOUS SYSTEM: No focal deficits Skin: Warm and dry, no rash. - Labs CBC & Chem 7: 08/11/23 08:16 08/11/23 08:16 Assessment and Plan Assessment: Metastatic lung cancer Left supraclavicular biopsy, pathology positive for metastatic poorly differentiated carcinoma, final characterization pending. Intractable pain Constipation Former nicotine dependence Marijuana use Plan: Continue on current medication regime ,monitoring and symptomatic treatment. Discharge planning pending - Oncology discussing initiating also IV chemotherapy inpatient. Pain management as per oncology. Antiemetics. MiraLAX daily for constipation. The impression and plan of care has been dictated as directed. : I performed a history and examination of this patient, discussed the same with the dictator. I agree with the dictator's note ,documented as a scribe. Any additional findings or plans will be noted.
[2023-08-18] MEDS: SODIUM CHLORIDE 0.9% 1,000 ML IV SCH (12:41)
--- NOTE | 2023-08-18 13:00 | P.PN ---
Subjective Progress Note Date: 08/18/23 Pt reporting improvement increased pain this morning. Reports she had a good night sleep. Completing RT today. Biopsy revealing metastatic poorly differentiated carcinoma. Objective - Vital Signs Vital signs: Vital Signs Temp 97.7 F 08/18/23 07:18 Pulse 84 08/18/23 07:53 Resp 18 08/18/23 07:18 BP 149/79 08/18/23 07:18 Pulse Ox 90 L 08/18/23 07:18 FiO2 Intake & Output 08/17/23 08/18/23 08/18/23 18:59 06:59 18:59 Intake Total 590 Balance 590 Weight 86.183 kg Intake: Oral 590 Other: Voiding Method Bedside Commode Bedside Commode # Voids 1 # Bowel Movements 1 - Constitutional General appearance: Present: average body habitus, no acute distress - EENT Eyes: Present: anicteric sclerae, EOMI ENT: Present: hearing grossly normal - Respiratory Details: breathing is even and unlabored - Cardiovascular Details: skin is warm and dry - Gastrointestinal General gastrointestinal: Present: soft. Absent: tenderness - Integumentary Integumentary: Absent: cyanotic - Neurologic Neurologic Comment(s): grossly intact - Musculoskeletal Musculoskeletal: Present: strength equal bilaterally - Psychiatric Psychiatric: Present: A&O x's 3 - Labs CBC & Chem 7: 08/11/23 08:16 08/11/23 08:16 Assessment and Plan (1) Intractable pain Current Visit: Yes Status: Acute Priority: High Code(s): R52 - PAIN, UNSPECIFIED SNOMED Code(s): 80644156 (2) Constipation Current Visit: Yes Status: Acute Priority: High Code(s): K59.00 - CONSTIPATION, UNSPECIFIED SNOMED Code(s): 26006735 (3) Metastatic lung cancer (metastasis from lung to other site) Current Visit: Yes Status: Acute Priority: High Code(s): C34.90 - MALIGNANT NEOPLASM OF UNSP PART OF UNSP BRONCHUS OR LUNG SNOMED Code(s): 50135819 Plan: Metastatic disease, suspected lung primary: -CT of the chest with contrast on 07/16/2023 was notable for dense lobular opacity in the left upper lobe extending from the apex to the hilum measuring 8.3 x 4.5 cm and 9.4 cm in the craniocaudal dimension. The mass was contiguous with the left mediastinum, including a portion of the distal aortic arch and left main pulmonary artery. It was also notable for left supraclavicular, superior mediastinal, and bilateral hilar lymphadenopathy. Soft tissue lesion was noted in the left anterior aspect of the T12 vertebral body with cortical destruction measuring 1.9 x 2.6 cm. There is another soft tissue lesion in the mid sternum measuring 2.3 x 3 x 3.8 cm. Multiple defined hypodense lesions in the liver were also noted with the largest measuring 3.6 cm. Imaging findings are consistent with malignancy, likely stage IV primary lung cancer. -PET CT was rescheduled due to concerns for insurance and this has yet to be obtained. Brain MRI negative for metastasis. Biopsy was to be scheduled outpt with pulm but also has been delayed to concerns of insurance coverage. -Rad onc consulted for eval for palliative RT to osseous mets. Will complete XRT to sternum and T12 lesion today -Pulmonology consulted for biopsy. They plan to hold bronch for now, and have IR evaluate for left supraclavicular biopsy. -Left supraclavicular biopsy revealing metastatic poorly differentiated carcinoma, final characterization pending. Awaiting call back from pathology dept to further discuss biopsy results -Will request NGS and PD-L1 testing on pathology in addition to obtaining circulating tumor DNA from the peripheral blood if this is non-small cell lung cancer -Pending finalization of biopsy, will have discussion with patient and family regarding treatment options and goals of care. If small cell will likely begin cycle 1 inpt. -Pt is requesting to receive chemo treatment closer to home and to continue f/u with Dr. Kasey Vasquez. Will have to figure out logistics to see if this can be arranged. -If pt stable, paion controlled and able to ambulate and path is consistent with NSCLC pt would be cleared from our standpoint to be discharged tomorrow Pt and updated on POC and are agreeable Intractable pain: -Pain has been progressing, c/o pain is worst across sternum and mid back. Known osseous mets to these areas -Rad onc consulted. Spoke with Dr. Rogel regarding case. Will complete XRT to sternum and T12 today -Due to significant n/v with IV pain meds, will add fentanyl patch and continue dilaudid for severe breakthrough pain. Reporting improvement in pain control with fentanyl. Pt only using 1 dose of IVP diluadid daily. [place] started, however pt reports history of n/v with norco in the past. Will start pt on scheduled zofran TID, and continue zofran and compazine PRN to see if this helps with opiate induced nausea. Will continue to monitor pain to ensure adequate pain control upon discharge. -Continues on prednisone -1 dose zometa given Constipation: -Been having issues with constipation x 1 month -Senokot-S and milk of magnesia added. Pt also drinking prune juice. Continue on bowel regimen -Anti-emetic regimen adjusted
[2023-08-18] MEDS: polyethylene glycoL 3350 17 GM POWD.PACK PO SCH (13:04)
--- NOTE | 2023-08-18 14:33 | P.PN ---
Subjective Progress Note Date: 08/18/23 This is a 63-year-old female patient with a history of 40+ years of chronic tobacco dependence however quit in October 2022. She states she had a trip and fall back in March 2023 and was having ongoing issues with chest discomfort and did have a chest x-ray at the beginning of July. That chest x-ray was abnormal and she was sent to [place] for a computed tomography scan of the chest approximately 2 weeks ago. Based on those findings she was sent to medical oncology who referred the patient here to the emergency department. A chest x-ray revealed a large left upper lung mass. A computed tomography scan of the chest abdomen and pelvis revealed a large infiltrative left upper lobe ruiz ng mass. This surrounds and narrows branches a left upper lobe bronchus and pulmonary artery within the left hilum. There is direct tumor extension into the left mediastinum to the margin of the aorta. Tumor also extends and continued daily with soft tissue metastasis in the left hilum. Multiple metastatic mediastinal nodes, prevascular, right and left paratracheal, subcarinal. Right hilar metastasis. Left supraclavicular metastasis. Infiltrate throughout the majority of the left upper lobe apart from the mass consistent with metastatic/lymphangitic spread of tumor. No clear evidence of right lung metastasis. There is diffuse hepatic metastasis. Enlarged shira hepatis nodes, likely metastatic. Soft tissue thickening in the distal stomach and duodenum, concerning for metastatic involvement versus inflammatory process. Multiple lytic osseous metastasis including: Sternal, left anterior T12 vertebrae with mild pathologic compression deformity, right L5 transverse process, right proximal femur. White count 9.2. Hemoglobin 13.9. Platelets 242. Sodium 139. Potassium 4.5. Bicarb 29. BUN 11. Creatinine 0.6. Glucose 139. AST 90. ALT 81. Alk phos 532. Viral screen negative. She is seen today in consultation on the oncology unit. She is currently laying in bed. Awake and alert. She is having ongoing issues with neck sternal and spine discomfort. She denies any worsening shortness of breath. She denies any hemoptysis. No cough or congestion. She is currently on 2 L nasal cannula with O2 saturations in the 90s. Afebrile. Hemodynamically stable. She was initiated on Dilaudid for pain control. Patient was reevaluated today on 08/12/23, patient had an episode of shortness of breath last night, she was also wheezing, hence I recommended Lasix, updrafts, and I recommended Decadron. This morning she feels much better, breathing a lot easier, she believes the Lasix helped her the most. Patient is yet to be scheduled for tissue diagnosis by interventional radiology, she could have a tissue diagnosis from her left supraclavicular lymph nodes which are palpable or she could have biopsy from her liver, this will be decided upon by interventional radiology who has been consulted. In the meantime patient is being treated for intractable pain, and I believe patient is on 2 L nasal cannula with O2 sats of 91%. The patient is seen today 08/13/2023 in follow-up on the regular medical floor. Resting fairly comfortably in bed. Awake and alert in no acute distress. He is maintaining O2 saturations in the mid 90s on room air. She's been afebrile. Hemodynamically stable. Plan is for a ultrasound-guided fine-needle aspiration of the left supraclavicular lymph nodes. He is continued on DuoNeb inhalations, Symbicort, Solu-Medrol. Her pain is currently well controlled. She has normal saline at 75 ML's per hour. The patient is seen today 08/14/2023 in follow-up on the regular medical floor. She is awake and alert in no acute distress. Sitting up in bed. Maintain O2 saturations in the 90s on 3 L/m per nasal cannula. She denies any worsening shortness of breath, cough or congestion. No hemoptysis. She's been afebrile. Hemodynamically stable. A biopsy of the left supraclavicular lymph node performed yesterday. Pathology is pending. No new labs today. She is continued on Symbicort, DuoNeb inhalations, Solu-Medrol. Pain is adequately controlled. Saline at 75 ML's per hour. The patient is seen today 08/15/2023 in follow-up on the regular medical floor. She is currently laying in bed. Awake and alert in no acute distress. Denies any worsening shortness of breath, cough or congestion. She is maintaining O2 saturations in the 90s on 3 L/m per nasal cannula. She's afebrile. Hemodynamically stable. She did undergo fine-needle aspirate of the left supraclavicular lymph nodes on 08/13/2023. Pathology pending. She's been seen by both medical and radiation oncology. She remains on DuoNeb inhalations, Symbicort, prednisone taper. Saline 20 ML's per hour. Pain currently controlled. Progress note dated 08/16/2023. The patient is seen today in room 519. The patient is currently on 3 L of oxygen. Saturations are 96%. She's getting saline at 20 mL an hour. Her pain is well-controlled. She is hoping to be discharged soon. She had a fine-needle aspiration of the left supraclavicular lymph node, on August 13. Biopsy results are currently pending. No new labs today. The patient is seen today 08/17/2023 for follow-up on the regular medical floor. She is currently sitting up in a chair at the bedside. Awake and alert in no acute distress. She is maintaining good O2 saturations in the 90s on 3 L/m per nasal cannula. No IV fluids. Lymph node biopsy from the left supra clavicular mass is positive for metastatic poorly differentiated carcinoma but final characterization is pending. She is being initiated on palliative radiation therapy to T12 lesion and the sternum per radiation oncology. No new labs today. Remains on DuoNeb inhalations, Symbicort, prednisone taper. The patient is seen today 08/18/2019 for follow-up on the regular medical floor. She is awake and alert in no acute distress. Sitting up in a chair at the bedside. Family at the bedside. She denies any worsening shortness of breath, cough or congestion. No hemoptysis. She remains on DuoNeb inhalations, Symbi vandana, prednisone taper. Initiated on palliative radiation therapy yesterday and the plan is to have it again today to the sternum and back. Lymph node biopsy from the left supra clavicular mass is positive for metastatic poorly differentiated carcinoma but final characterization is pending. Objective - Vital Signs Vital signs: Vital Signs Temp 98.5 F 08/18/23 12:31 Pulse 80 08/18/23 12:31 Resp 18 08/18/23 12:31 BP 145/76 08/18/23 12:31 Pulse Ox 92 L 08/18/23 12:31 FiO2 Intake & Output 08/17/23 08/18/23 08/18/23 18:59 06:59 18:59 Intake Total 590 Balance 590 Weight 86.183 kg Intake: Oral 590 Other: Voiding Method Bedside Commode Bedside Commode # Voids 1 # Bowel Movements 1 - Exam GENERAL EXAM: Awake, alert 63-year-old female, up in a chair, on 3 L nasal cannula, in no acute distress HEAD: Normocephalic. EYES: Normal reaction of pupils, equal size. NOSE: Clear with pink turbinates. THROAT: No erythema or exudates. NECK: Positive left supraclavicular lymphadenopathy CHEST: No chest wall deformity. Tender to palpation of the sternum. LUNGS: Diminished breath sound bilaterally minimal wheezing on forced expiratory maneuver CVS: S1 and S2 normal with no audible murmur, regular rhythm. ABDOMEN: Tender to palpation right quadrant, normal bowel sounds, no guarding or rigidity. SKIN: No rashes CENTRAL NERVOUS SYSTEM: Alert and oriented 3 no gross focal neurologic deficit Psychiatric: Normal mood affect and normal mental status examination EXTREMITIES: No clubbing edema or cyanosis, good pulses bilaterally - Labs CBC & Chem 7: 08/11/23 08:16 08/11/23 08:16 Assessment and Plan Assessment: Skeletal pain including the neck, sternum and spine. A computed tomography scan of the chest abdomen and pelvis revealed a large infiltrative left upper lobe lung mass. This surrounds and narrows branches a left upper lobe bronchus and pulmonary artery within the left hilum. There is direct tumor extension into the left mediastinum to the margin of the aorta. Tumor also extends and continued daily with soft tissue metastasis in the left hilum. Multiple metastatic mediastinal nodes, prevascular, right and left paratracheal, subcarinal. Right hilar metastasis. Left supraclavicular metastasis. Infiltrate throughout the majority of the left upper lobe apart from the mass consistent with metastatic/lymphangitic spread of tumor. No clear evidence of right lung metastasis. There is diffuse hepatic metastasis. Enlarged shira hepatis nodes, likely metastatic. Soft tissue thickening in the distal stomach and duodenum, concerning for metastatic involvement versus inflammatory process. Multiple lytic osseous metastasis including: Sternal, left anterior T12 vertebrae with mild pathologic compression deformity, right L5 transverse process, right proximal femur. Ultrasound-guided fine-needle aspirate of the left supraclavicular neck mass/lymph nodes done on 08/13/2023. Pathology positive for metastatic poorly differentiated carcinoma, final characterization is pending. Been initiated on palliative radiation to T12 and the sternum 08/17/2023 Large left upper lung mass suspect small cell lung cancer with significant metastasis including the liver and bone possible distal stomach and duodenum 40 year smoking history, quit in October 2022 History of trip and fall back in March 2023 with residual pain and discomfort leading to a chest x-ray in July 2023 Plan: The patient was seen and evaluated Medications reviewed Pathology results pending final characterization Continue with the current treatment plan Received palliative radiation again today Titrate the FiO2 as tolerated Possible discharge in the a.m. I have personally seen and examined the patient, performed the documentation and the assessment and plan as written. Number of minutes spent on the visit: 10.
[2023-08-18] MEDS: HYDROcodone/APAP 7.5-325MG 1 EACH TAB PO PRN (23:36)
[2023-08-19] MEDS: IBUPROFEN 800 MG TAB PO PRN ×2 (06:43→20:49)
[2023-08-19] MEDS: SYMBICORT 160-4.5 MCG INHALER INHALATION SCH ×2 (07:24→18:34)
[2023-08-19] MEDS: IPRATROPIUM-ALBUTEROL 3 ML NEB INHALATION SCH ×4 (07:24→18:34)
[2023-08-19] MEDS: ONDANSETRON 4 MG TAB PO SCH ×3 (08:05→23:26)
[2023-08-19] MEDS: FAMOTIDINE 20 MG TAB PO SCH ×2 (08:05→20:48)
[2023-08-19] MEDS: METOCLOPRAMIDE 5 MG TAB PO SCH ×2 (08:05→17:06)
[2023-08-19] MEDS: SENNOSIDES-DOCUSATE SODIUM 1 EACH TAB PO SCH ×2 (09:03→20:48)
[2023-08-19] MEDS: predniSONE 20 MG TAB PO SCH (09:03)
[2023-08-19] MEDS: polyethylene glycoL 3350 17 GM POWD.PACK PO SCH (09:05)
[2023-08-19] MEDS: MAGNESIUM HYDROXIDE 2,400 MG/30 ML CUP PO PRN (09:35)
--- NOTE | 2023-08-19 13:36 | P.PN ---
Subjective Progress Note Date: 08/19/23 This is a 63-year-old female patient with a history of 40+ years of chronic tobacco dependence however quit in October 2022. She states she had a trip and fall back in March 2023 and was having ongoing issues with chest discomfort and did have a chest x-ray at the beginning of July. That chest x-ray was abnormal and she was sent to [place] for a computed tomography scan of the chest approximately 2 weeks ago. Based on those findings she was sent to medical oncology who referred the patient here to the emergency department. A chest x-ray revealed a large left upper lung mass. A computed tomography scan of the chest abdomen and pelvis revealed a large infiltrative left upper lobe ruiz ng mass. This surrounds and narrows branches a left upper lobe bronchus and pulmonary artery within the left hilum. There is direct tumor extension into the left mediastinum to the margin of the aorta. Tumor also extends and continued daily with soft tissue metastasis in the left hilum. Multiple metastatic mediastinal nodes, prevascular, right and left paratracheal, subcarinal. Right hilar metastasis. Left supraclavicular metastasis. Infiltrate throughout the majority of the left upper lobe apart from the mass consistent with metastatic/lymphangitic spread of tumor. No clear evidence of right lung metastasis. There is diffuse hepatic metastasis. Enlarged shira hepatis nodes, likely metastatic. Soft tissue thickening in the distal stomach and duodenum, concerning for metastatic involvement versus inflammatory process. Multiple lytic osseous metastasis including: Sternal, left anterior T12 vertebrae with mild pathologic compression deformity, right L5 transverse process, right proximal femur. White count 9.2. Hemoglobin 13.9. Platelets 242. Sodium 139. Potassium 4.5. Bicarb 29. BUN 11. Creatinine 0.6. Glucose 139. AST 90. ALT 81. Alk phos 532. Viral screen negative. She is seen today in consultation on the oncology unit. She is currently laying in bed. Awake and alert. She is having ongoing issues with neck sternal and spine discomfort. She denies any worsening shortness of breath. She denies any hemoptysis. No cough or congestion. She is currently on 2 L nasal cannula with O2 saturations in the 90s. Afebrile. Hemodynamically stable. She was initiated on Dilaudid for pain control. Patient was reevaluated today on 08/12/23, patient had an episode of shortness of breath last night, she was also wheezing, hence I recommended Lasix, updrafts, and I recommended Decadron. This morning she feels much better, breathing a lot easier, she believes the Lasix helped her the most. Patient is yet to be scheduled for tissue diagnosis by interventional radiology, she could have a tissue diagnosis from her left supraclavicular lymph nodes which are palpable or she could have biopsy from her liver, this will be decided upon by interventional radiology who has been consulted. In the meantime patient is being treated for intractable pain, and I believe patient is on 2 L nasal cannula with O2 sats of 91%. The patient is seen today 08/13/2023 in follow-up on the regular medical floor. Resting fairly comfortably in bed. Awake and alert in no acute distress. He is maintaining O2 saturations in the mid 90s on room air. She's been afebrile. Hemodynamically stable. Plan is for a ultrasound-guided fine-needle aspiration of the left supraclavicular lymph nodes. He is continued on DuoNeb inhalations, Symbicort, Solu-Medrol. Her pain is currently well controlled. She has normal saline at 75 ML's per hour. The patient is seen today 08/14/2023 in follow-up on the regular medical floor. She is awake and alert in no acute distress. Sitting up in bed. Maintain O2 saturations in the 90s on 3 L/m per nasal cannula. She denies any worsening shortness of breath, cough or congestion. No hemoptysis. She's been afebrile. Hemodynamically stable. A biopsy of the left supraclavicular lymph node performed yesterday. Pathology is pending. No new labs today. She is continued on Symbicort, DuoNeb inhalations, Solu-Medrol. Pain is adequately controlled. Saline at 75 ML's per hour. The patient is seen today 08/15/2023 in follow-up on the regular medical floor. She is currently laying in bed. Awake and alert in no acute distress. Denies any worsening shortness of breath, cough or congestion. She is maintaining O2 saturations in the 90s on 3 L/m per nasal cannula. She's afebrile. Hemodynamically stable. She did undergo fine-needle aspirate of the left supraclavicular lymph nodes on 08/13/2023. Pathology pending. She's been seen by both medical and radiation oncology. She remains on DuoNeb inhalations, Symbicort, prednisone taper. Saline 20 ML's per hour. Pain currently controlled. Progress note dated 08/16/2023. The patient is seen today in room 519. The patient is currently on 3 L of oxygen. Saturations are 96%. She's getting saline at 20 mL an hour. Her pain is well-controlled. She is hoping to be discharged soon. She had a fine-needle aspiration of the left supraclavicular lymph node, on August 13. Biopsy results are currently pending. No new labs today. The patient is seen today 08/17/2023 for follow-up on the regular medical floor. She is currently sitting up in a chair at the bedside. Awake and alert in no acute distress. She is maintaining good O2 saturations in the 90s on 3 L/m per nasal cannula. No IV fluids. Lymph node biopsy from the left supra clavicular mass is positive for metastatic poorly differentiated carcinoma but final characterization is pending. She is being initiated on palliative radiation therapy to T12 lesion and the sternum per radiation oncology. No new labs today. Remains on DuoNeb inhalations, Symbicort, prednisone taper. The patient is seen today 08/18/2019 for follow-up on the regular medical floor. She is awake and alert in no acute distress. Sitting up in a chair at the bedside. Family at the bedside. She denies any worsening shortness of breath, cough or congestion. No hemoptysis. She remains on DuoNeb inhalations, Symbi vandana, prednisone taper. Initiated on palliative radiation therapy yesterday and the plan is to have it again today to the sternum and back. Lymph node biopsy from the left supra clavicular mass is positive for metastatic poorly differentiated carcinoma but final characterization is pending. The patient is a 08/19/2023 in follow-up on the regular medical floor. She is sitting up at the bedside. There were acute distress. She denies any worsening shortness of breath cough or congestion. He is maintaining good O2 saturations in the 90s on 3 L/m per nasal cannula. She did desaturate to 87% on room air with a brief walk. She did undergo radiation to the sternum and T12 again yesterday. 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 Objective - Vital Signs Vital signs: Vital Signs Temp 99.2 F 08/19/23 11:45 Pulse 80 08/19/23 11:45 Resp 16 08/19/23 11:45 BP 132/74 08/19/23 11:45 Pulse Ox 91 L 08/19/23 11:45 FiO2 Intake & Output 08/18/23 08/19/23 08/19/23 18:59 06:59 18:59 Weight 86.183 kg Other: Voiding Method Bedside Commode # Voids 4 3 - Exam GENERAL EXAM: Awake, alert pleasant 63-year-old female, on 3 L nasal cannula, in no acute distress HEAD: Normocephalic. EYES: Normal reaction of pupils, equal size. NOSE: Clear with pink turbinates. THROAT: No erythema or exudates. NECK: Positive left supraclavicular lymphadenopathy CHEST: No chest wall deformity. Tender to palpation of the sternum. LUNGS: Diminished breath sound bilaterally minimal wheezing on forced expiratory maneuver CVS: S1 and S2 normal with no audible murmur, regular rhythm. ABDOMEN: Tender to palpation right quadrant, normal bowel sounds, no guarding or rigidity. SKIN: No rashes CENTRAL NERVOUS SYSTEM: Alert and oriented 3 no gross focal neurologic deficit Psychiatric: Normal mood affect and normal mental status examination EXTREMITIES: No clubbing edema or cyanosis, good pulses bilaterally - Labs CBC & Chem 7: 08/11/23 08:16 08/11/23 08:16 Assessment and Plan Assessment: Skeletal pain including the neck, sternum and spine. A computed tomography scan of the chest abdomen and pelvis revealed a large infiltrative left upper lobe lung mass. This surrounds and narrows branches a left upper lobe bronchus and pulmonary artery within the left hilum. There is direct tumor extension into the left mediastinum to the margin of the aorta. Tumor also extends and continued daily with soft tissue metastasis in the left hilum. Multiple metas tatic mediastinal nodes, prevascular, right and left paratracheal, subcarinal. Right hilar metastasis. Left supraclavicular metastasis. Infiltrate throughout the majority of the left upper lobe apart from the mass consistent with metastatic/lymphangitic spread of tumor. No clear evidence of right lung metastasis. There is diffuse hepatic metastasis. Enlarged shira hepatis nodes, likely metastatic. Soft tissue thickening in the distal stomach and duodenum, concerning for metastatic involvement versus inflammatory process. Multiple lytic osseous metastasis including: Sternal, left anterior T12 vertebrae with mild pathologic compression deformity, right L5 transverse process, right prox imal femur. Ultrasound-guided fine-needle aspirate of the left supraclavicular neck mass/lymph nodes done on 08/13/2023. 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 Initiated on palliative radiation to T12 and the sternum 0 08/17/2023 Large left upper lung mass suspect small cell lung cancer with significant metastasis including the liver and bone possible distal stomach and duodenum 40 year smoking history, quit in October 2022 History of trip and fall back in March 2023 with residual pain and discomfort leading to a chest x-ray in July 2023 Plan: The patient was seen and evaluated Medications reviewed Pathology results reviewed Continue with the current treatment plan Received palliative radiation again yesterday Evaluate for possible home oxygen Follow-up closely with oncology This patient was seen independently by the pulmonary nurse practitioner addressing pulmonary issues I have personally seen and examined the patient, performed the documentation and the assessment and plan as written. Number of minutes spent on the visit: 24.
--- NOTE | 2023-08-19 15:00 | P.PN ---
Subjective Progress Note Date: 08/19/23 Pt reporting pain is being well controlled. Completed XRT to sternum and T12. 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 Plan was for discharge today, but spoke with IM team, will keep pt to start chemo with cycle 1 Carbo/taxol Objective - Vital Signs Vital signs: Vital Signs Temp 99.2 F 08/19/23 11:45 Pulse 80 08/19/23 11:45 Resp 16 08/19/23 11:45 BP 132/74 08/19/23 11:45 Pulse Ox 91 L 08/19/23 11:45 FiO2 Intake & Output 08/18/23 08/19/23 08/19/23 18:59 06:59 18:59 Weight 86.183 kg 86 kg Other: Voiding Method Bedside Commode # Voids 4 3 - Constitutional General appearance: Present: average body habitus, no acute distress - EENT Eyes: Present: anicteric sclerae, EOMI ENT: Present: hearing grossly normal - Respiratory Details: breathing is even and unlabored - Cardiovascular Details: skin warm and dry - Gastrointestinal General gastrointestinal: Present: soft. Absent: tenderness - Integumentary Integumentary: Absent: cyanotic - Neurologic Neurologic Comment(s): grossly intact - Musculoskeletal Musculoskeletal: Present: strength equal bilaterally - Psychiatric Psychiatric: Present: A&O x's 3 - Labs CBC & Chem 7: 08/11/23 08:16 08/11/23 08:16 Assessment and Plan (1) Intractable pain Current Visit: Yes Status: Acute Priority: High Code(s): R52 - PAIN, UNSPECIFIED SNOMED Code(s): 10626904 (2) Constipation Current Visit: Yes Status: Acute Priority: High Code(s): K59.00 - CONSTIPATION, UNSPECIFIED SNOMED Code(s): 29595287 (3) Metastatic lung cancer (metastasis from lung to other site) Current Visit: Yes Status: Acute Priority: High Code(s): C34.90 - MALIGNANT NEOPLASM OF UNSP PART OF UNSP BRONCHUS OR LUNG SNOMED Code(s): 26682354 Plan: Poorly differentiated metastatic neuroendocrine carcinoma: -CT of the chest with contrast on 07/16/2023 was notable for dense lobular opacity in the left upper lobe extending from the apex to the hilum measuring 8.3 x 4.5 cm and 9.4 cm in the craniocaudal dimension. The mass was contiguous with the left mediastinum, including a portion of the distal aortic arch and left main pulmonary artery. It was also notable for left supraclavicular, garcía perior mediastinal, and bilateral hilar lymphadenopathy. Soft tissue lesion was noted in the left anterior aspect of the T12 vertebral body with cortical destruction measuring 1.9 x 2.6 cm. There is another soft tissue lesion in the mid sternum measuring 2.3 x 3 x 3.8 cm. Multiple defined hypodense lesions in the liver were also noted with the largest measuring 3.6 cm. Imaging findings are consistent with malignancy, likely stage IV primary lung cancer. -PET CT was rescheduled due to concerns for insurance and this has yet to be obtained. Brain MRI negative for metastasis. Biopsy was to be scheduled outpt with pulm but also has been delayed to concerns of insurance coverage. -Rad onc consulted for eval for palliative RT to osseous mets. Completed XRT to sternum and T12 lesion -S/p left supraclavicular biopsy, revealing metastatic poorly differentiated neuroendocrine carcinoma with focal squamous cell differentiation. 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 -Will request NGS and PD-L1 testing on pathology in addition to obtaining circulating tumor DNA from the peripheral blood once patient has obtained health insurance -Discussed findings and pathology with patient and family. Will proceed with cycle 1 of inpt chemo with carbo/taxol. Will add keytruda to regimen for subsequent outpt cycles. Spoke with IM regarding plan and they were agreeable -Spoke with case management. They will work on helping patient obtain insurance coverage for hospital visit. Pt reports she has began trying to obtain insurance, and has paperwork at home to fill out. Will f/u with pt on this so we can begin further outpt testing, tx and f/u -Home O2 eval ordered Intractable pain: -Pain has been progressing, c/o pain is worst across sternum and mid back. Known osseous mets to these areas -Rad onc consulted. Spoke with Dr. Rogel regarding case. Will complete XRT to sternum and T12 today -Due to significant n/v with IV pain meds, will add fentanyl patch and continue dilaudid for severe breakthrough pain. Reporting improvement in pain control with fentanyl. [place] started, however pt reports history of n/v with norco in the past. Will start pt on scheduled zofran TID, and continue zofran and compazine PRN to see if this helps with opiate induced nausea. Will continue to monitor pain to ensure adequate pain control upon discharge. 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 Pt also drinking prune juice. Continue on bowel regimen
[2023-08-19 15:15] LABS: Basophils % (A) 0 %; Eosinophils % (A) 0 %; HCT 46.4 % (34.0-46.0); HGB 14.5 gm/dL (11.4-16.0); Hypochromasia Moderate; Lymphocytes # (A) 0.2 k/uL (1.0-4.8); Lymphocytes % (A) 3 %; MCH 28.5 pg (25.0-35.0); MCHC 31.3 g/dL (31.0-37.0); MCV 91.2 fL (80.0-100.0); Monocytes # (A) 0.2 k/uL (0-1.0); Monocytes % (A) 3 %; Neutrophils # (A) 6.7 k/uL (1.3-7.7); Neutrophils % (A) 93 %; Platelet Count 200 k/uL (150-450); RBC 5.09 m/uL (3.80-5.40); RDW 14.1 % (11.5-15.5); WBC 7.1 k/uL (3.8-10.6)
[2023-08-19 15:25] LABS: African American GFR (CKD) >90 (>60 ml/min/1.73 sqM); Albumin 3.6 g/dL (3.5-5.0); Anion Gap 4 mmol/L; Blood Urea Nitrogen 15 mg/dL (7-17); Carbon Dioxide 38 mmol/L (22-30); Chloride 91 mmol/L (98-107); Glucose 294 mg/dL (74-99); Non-African American GFR(CKD) >90 (>60 ml/min/1.73 sqM); Potassium 4.8 mmol/L (3.5-5.1); Sodium 133 mmol/L (137-145)
[2023-08-19 15:26] LABS: ALT 164 U/L (4-34); AST 142 U/L (14-36); Albumin/Globulin Ratio 1.1; Globulin 3.4 g/dL; Total Bilirubin 1.3 mg/dL (0.2-1.3)
[2023-08-19] MEDS ORDERED: LIDOCAINE 1% INJ 10MG/ML (5 ML VIAL-PF) SQ ONE (15:50)
--- NOTE | 2023-08-19 16:15 | P.OP ---
Date of Procedure: 08/19/23 Description of Procedure: Preoperative Diagnosis: Need for chemotherapy Postoperative Diagnosis: Same. Procedure(s) Performed: Ultrasound-guided cannulation [left cephalic] vein. Insertion of peripherally inserted central catheter under fluoroscopic guidance. Anesthesia: local 1% lidocaine plain Surgeon: Malena Estimated Blood Loss (ml): 5 IV fluids (ml): 0 Urine output (ml): 0 Pathology: none sent Condition: stable Disposition: no change Indications for Procedure: Patient requires chemotherapy and is offered a PICC line to allow for intravenous administration. Description of Procedure: Patient was brought to the special procedure suite. The [left] upper extremity sterilely prepped and draped in usual manner. Ultrasound was utilized to identify the [cephalic] vein which was normally compressible free of visible thrombus. Permenant image was stored. 1% Xylocaine was utilized for local ane sthesia tissues overlying the vein. Through this anesthetized area and with the aid of ultrasound a micropuncture needle was utilized to cannulate the vein. Once cannulated, Softip guidewire was advanced into the vein. The needle was withdrawn and a micropuncture sheath and dilator advanced over the guidewire. The guidewire was withdrawn and exchanged for the PICC guidewire and measured 46 cm to the cavoatrial junction. The catheter was cut to size and advanced into the cavoatrial junction without resistance. The sheath was peeled away. Blood was easily withdrawn through the catheter and the catheter was then flushed with heparinized saline solution and secured to the skin. Patient tolerated procedure well and was returned to their room in satisfactory and stable condition.
[2023-08-19 16:29] LABS: Alkaline Phosphatase 675 U/L (38-126)
[2023-08-19] MEDS: SODIUM CHLORIDE 0.9% 1,000 ML IV SCH (17:00)
--- NOTE | 2023-08-19 19:33 | IR ---
EXAMINATION TYPE: IR cvc insert >=5 years DATE OF EXAM: 08/19/2023 FLUOROSCOPY Chemo Blood, 48cm, 1.3min fluoro, L cephalic vein, 1.04Gaiq3. 125 images submitted.
[2023-08-20] MEDS: HYDROcodone/APAP 7.5-325MG 1 EACH TAB PO PRN ×2 (00:13→20:39)
[2023-08-20 07:00] LABS: Basophils % (A) 0 %; Eosinophils # (A) 0.1 k/uL (0-0.7); Eosinophils % (A) 1 %; HCT 43.8 % (34.0-46.0); HGB 13.5 gm/dL (11.4-16.0); Hypochromasia Moderate; Lymphocytes # (A) 0.7 k/uL (1.0-4.8); Lymphocytes % (A) 9 %; MCH 28.1 pg (25.0-35.0); MCHC 30.7 g/dL (31.0-37.0); MCV 91.3 fL (80.0-100.0); Mean Platelet Volume 7.2; Monocytes # (A) 0.6 k/uL (0-1.0); Monocytes % (A) 8 %; Neutrophils % (A) 80 %; Platelet Count 193 k/uL (150-450); RDW 14.1 % (11.5-15.5); WBC 7.5 k/uL (3.8-10.6)
[2023-08-20 07:25] LABS: ALT 167 U/L (4-34); AST 125 U/L (14-36); African American GFR (CKD) >90 (>60 ml/min/1.73 sqM); Albumin 3.2 g/dL (3.5-5.0); Anion Gap 6 mmol/L; Blood Urea Nitrogen 13 mg/dL (7-17); Calcium 8.7 mg/dL (8.4-10.2); Carbon Dioxide 39 mmol/L (22-30); Chloride 94 mmol/L (98-107); Globulin 3.2 g/dL; Glucose 88 mg/dL (74-99); Non-African American GFR(CKD) >90 (>60 ml/min/1.73 sqM); Potassium 4.1 mmol/L (3.5-5.1); Sodium 139 mmol/L (137-145); Total Bilirubin 1.1 mg/dL (0.2-1.3); Total Protein 6.4 g/dL (6.3-8.2)
[2023-08-20] MEDS: SYMBICORT 160-4.5 MCG INHALER INHALATION SCH ×3 (07:43→19:43)
[2023-08-20] MEDS: IPRATROPIUM-ALBUTEROL 3 ML NEB INHALATION SCH ×4 (07:43→19:43)
[2023-08-20 08:03] LABS: Alkaline Phosphatase 612 U/L (38-126)
[2023-08-20] MEDS: ONDANSETRON 4 MG TAB PO SCH (08:25)
[2023-08-20] MEDS: SENNOSIDES-DOCUSATE SODIUM 1 EACH TAB PO SCH ×2 (08:27→20:06)
[2023-08-20] MEDS: METOCLOPRAMIDE 5 MG TAB PO SCH ×2 (08:27→17:08)
[2023-08-20] MEDS: FAMOTIDINE 20 MG TAB PO SCH ×2 (08:27→20:06)
[2023-08-20] MEDS: predniSONE 20 MG TAB PO SCH (08:27)
[2023-08-20] MEDS: polyethylene glycoL 3350 17 GM POWD.PACK PO SCH (08:27)
[2023-08-20] MEDS: ALPRAZolam 0.5 MG TAB PO PRN ×2 (08:44→23:41)
[2023-08-20] MEDS ORDERED: ONDANSETRON 16 MG in SODIUM CHLORIDE 0.9% 50 ML IVPB ONE (11:30)
[2023-08-20] MEDS ORDERED: DEXAMETHASONE SOD PHOSPHATE 10 MG/ML 1 ML VIAL IVP ONE (11:30)
[2023-08-20] MEDS ORDERED: diphenhydrAMINE 50 MG/ML 1 ML VIAL IVP ONE (11:30)
--- NOTE | 2023-08-20 11:38 | P.PN ---
Subjective Progress Note Date: 08/20/23 This is a 63-year-old female patient with a history of 40+ years of chronic tobacco dependence however quit in October 2022. She states she had a trip and fall back in March 2023 and was having ongoing issues with chest discomfort and did have a chest x-ray at the beginning of July. That chest x-ray was abnormal and she was sent to [facility] for a computed tomography scan of the chest approximately 2 weeks ago. Based on those findings she was sent to medical oncology who referred the patient here to the emergency department. A chest x-ray revealed a large left upper lung mass. A computed tomography scan of the chest abdomen and pelvis revealed a large infiltrative left upper lobe ruiz ng mass. This surrounds and narrows branches a left upper lobe bronchus and pulmonary artery within the left hilum. There is direct tumor extension into the left mediastinum to the margin of the aorta. Tumor also extends and continued daily with soft tissue metastasis in the left hilum. Multiple metastatic mediastinal nodes, prevascular, right and left paratracheal, subcarinal. Right hilar metastasis. Left supraclavicular metastasis. Infiltrate throughout the majority of the left upper lobe apart from the mass consistent with metastatic/lymphangitic spread of tumor. No clear evidence of right lung metastasis. There is diffuse hepatic metastasis. Enlarged shira hepatis nodes, likely metastatic. Soft tissue thickening in the distal stomach and duodenum, concerning for metastatic involvement versus inflammatory process. Multiple lytic osseous metastasis including: Sternal, left anterior T12 vertebrae with mild pathologic compression deformity, right L5 transverse process, right proximal femur. White count 9.2. Hemoglobin 13.9. Platelets 242. Sodium 139. Potassium 4.5. Bicarb 29. BUN 11. Creatinine 0.6. Glucose 139. AST 90. ALT 81. Alk phos 532. Viral screen negative. She is seen today in consultation on the oncology unit. She is currently laying in bed. Awake and alert. She is having ongoing issues with neck sternal and spine discomfort. She denies any worsening shortness of breath. She denies any hemoptysis. No cough or congestion. She is currently on 2 L nasal cannula with O2 saturations in the 90s. Afebrile. Hemodynamically stable. She was initiated on Dilaudid for pain control. Patient was reevaluated today on 08/12/23, patient had an episode of shortness of breath last night, she was also wheezing, hence I recommended Lasix, updrafts, and I recommended Decadron. This morning she feels much better, breathing a lot easier, she believes the Lasix helped her the most. Patient is yet to be scheduled for tissue diagnosis by interventional radiology, she could have a tissue diagnosis from her left supraclavicular lymph nodes which are palpable or she could have biopsy from her liver, this will be decided upon by interventional radiology who has been consulted. In the meantime patient is being treated for intractable pain, and I believe patient is on 2 L nasal cannula with O2 sats of 91%. The patient is seen today 08/13/2023 in follow-up on the regular medical floor. Resting fairly comfortably in bed. Awake and alert in no acute distress. He is maintaining O2 saturations in the mid 90s on room air. She's been afebrile. Hemodynamically stable. Plan is for a ultrasound-guided fine-needle aspiration of the left supraclavicular lymph nodes. He is continued on DuoNeb inhalations, Symbicort, Solu-Medrol. Her pain is currently well controlled. She has normal saline at 75 ML's per hour. The patient is seen today 08/14/2023 in follow-up on the regular medical floor. She is awake and alert in no acute distress. Sitting up in bed. Maintain O2 saturations in the 90s on 3 L/m per nasal cannula. She denies any worsening shortness of breath, cough or congestion. No hemoptysis. She's been afebrile. Hemodynamically stable. A biopsy of the left supraclavicular lymph node performed yesterday. Pathology is pending. No new labs today. She is continued on Symbicort, DuoNeb inhalations, Solu-Medrol. Pain is adequately controlled. Saline at 75 ML's per hour. The patient is seen today 08/15/2023 in follow-up on the regular medical floor. She is currently laying in bed. Awake and alert in no acute distress. Denies any worsening shortness of breath, cough or congestion. She is maintaining O2 saturations in the 90s on 3 L/m per nasal cannula. She's afebrile. Hemodynamically stable. She did undergo fine-needle aspirate of the left supraclavicular lymph nodes on 08/13/2023. Pathology pending. She's been seen by both medical and radiation oncology. She remains on DuoNeb inhalations, Symbicort, prednisone taper. Saline 20 ML's per hour. Pain currently controlled. Progress note dated 08/16/2023. The patient is seen today in room 519. The patient is currently on 3 L of oxygen. Saturations are 96%. She's getting saline at 20 mL an hour. Her pain is well-controlled. She is hoping to be discharged soon. She had a fine-needle aspiration of the left supraclavicular lymph node, on August 13. Biopsy results are currently pending. No new labs today. The patient is seen today 08/17/2023 for follow-up on the regular medical floor. She is currently sitting up in a chair at the bedside. Awake and alert in no acute distress. She is maintaining good O2 saturations in the 90s on 3 L/m per nasal cannula. No IV fluids. Lymph node biopsy from the left supra clavicular mass is positive for metastatic poorly differentiated carcinoma but final characterization is pending. She is being initiated on palliative radiation therapy to T12 lesion and the sternum per radiation oncology. No new labs today. Remains on DuoNeb inhalations, Symbicort, prednisone taper. The patient is seen today 08/18/2019 for follow-up on the regular medical floor. She is awake and alert in no acute distress. Sitting up in a chair at the bedside. Family at the bedside. She denies any worsening shortness of breath, cough or congestion. No hemoptysis. She remains on DuoNeb inhalations, Symbi vandana, prednisone taper. Initiated on palliative radiation therapy yesterday and the plan is to have it again today to the sternum and back. Lymph node biopsy from the left supra clavicular mass is positive for metastatic poorly differentiated carcinoma but final characterization is pending. The patient is a 08/19/2023 in follow-up on the regular medical floor. She is sitting up at the bedside. There were acute distress. She denies any worsening shortness of breath cough or congestion. He is maintaining good O2 saturations in the 90s on 3 L/m per nasal cannula. She did desaturate to 87% on room air with a brief walk. She did undergo radiation to the sternum and T12 again yesterday. 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 The patient is seen 08/20/2023 in follow-up on the regular medical floor. She is resting comfortably in bed. Awake and alert in no acute distress. She is maintaining O2 saturations in the 90s on 3 L/m per nasal cannula. She is continued on Symbicort, DuoNeb inhalations, prednisone taper. She did receive PICC line placed to the left upper extremity yesterday. She completed 2 rounds of radiation. Plan is for induction chemotherapy today with carboplatin and Taxol. Count 10.5. Hemoglobin 13.5. Platelets 193. Sodium 139. Potassium 4.1. Bicarb 39. BUN 13. Creatinine 0.60. AST 125. ALT 167. Objective - Vital Signs Vital signs: Vital Signs Temp 97.6 F 08/20/23 07:25 Pulse 82 08/20/23 07:59 Resp 16 08/20/23 07:25 BP 152/58 08/20/23 07:25 Pulse Ox 94 L 08/20/23 07:44 FiO2 Intake & Output 08/19/23 08/20/23 08/20/23 18:59 06:59 18:59 Intake Total 600 Balance 600 Weight 86 kg Intake: Oral 600 Other: Voiding Method Bedside Commode # Voids 3 - Exam GENERAL EXAM: Awake, pleasant 63-year-old female, on 3 L nasal cannula, in no acute distress HEAD: Normocephalic. EYES: Normal reaction of pupils, equal size. NOSE: Clear with pink turbinates. THROAT: No erythema or exudates. NECK: Positive left supraclavicular lymphadenopathy CHEST: No chest wall deformity. Tender to palpation of the sternum. LUNGS: Diminished breath sound bilaterally minimal wheezing on forced expiratory maneuver CVS: S1 and S2 normal with no audible murmur, regular rhythm. ABDOMEN: Tender to palpation right quadrant, normal bowel sounds, no guarding or rigidity. SKIN: No rashes CENTRAL NERVOUS SYSTEM: Alert and oriented 3, no gross focal neurologic deficit Psychiatric: Normal mood affect and normal mental status examination EXTREMITIES: No clubbing edema or cyanosis, good pulses bilaterally - Labs CBC & Chem 7: 08/20/23 05:58 08/20/23 05:58 Labs: Abnormal Lab Results - Last 24 Hours (Table) 08/19/23 08/19/23 08/20/23 Range/Units 14:56 14:56 05:58 Hct 46.4 H (34.0-46.0) % MCHC 30.7 L (31.0-37.0) g/dL Lymphocytes # 0.2 L 0.7 L (1.0-4.8) k/uL Sodium 133 L (137-145) mmol/L Chloride 91 L (98-107) mmol/L Carbon Dioxide 38 H (22-30) mmol/L Glucose 294 H (74-99) mg/dL AST 142 H (14-36) U/L ALT 164 H (4-34) U/L Alkaline Phosphatase 675 H (38-126) U/L Albumin (3.5-5.0) g/dL 08/20/23 Range/Units 05:58 Hct (34.0-46.0) % MCHC (31.0-37.0) g/dL Lymphocytes # (1.0-4.8) k/uL Sodium (137-145) mmol/L Chloride 94 L (98-107) mmol/L Carbon Dioxide 39 H (22-30) mmol/L Glucose (74-99) mg/dL AST 125 H (14-36) U/L ALT 167 H (4-34) U/L Alkaline Phosphatase 612 H (38-126) U/L Albumin 3.2 L (3.5-5.0) g/dL Assessment and Plan Assessment: Skeletal pain including the neck, sternum and spine. A computed tomography scan of the chest abdomen and pelvis revealed a large infiltrative left upper lobe lung mass. This surrounds and narrows branches a left upper lobe bronchus and pulmonary artery within the left hilum. There is direct tumor extension into the left mediastinum to the margin of the aorta. Tumor also extends and continued daily with soft tissue metastasis in the left hilum. Multiple metastatic mediastinal nodes, prevascular, right and left paratracheal, subcarinal. Right hilar metastasis. Left supraclavicular metastasis. Infiltrate throughout the majority of the left upper lobe apart from the mass consistent with metastatic/lymphangitic spread of tumor. No clear evidence of right lung metastasis. There is diffuse hepatic metastasis. Enlarged shira hepatis nodes, likely metastatic. Soft tissue thickening in the distal stomach and duodenum, concerning for metastatic involvement versus inflammatory process. Multiple lytic osseous metastasis including: Sternal, left anterior T12 vertebrae with mild pathologic compression deformity, right L5 transverse process, right proximal femur. Ultrasound-guided fine-needle aspirate of the left supraclavicular neck mass/lymph nodes done on 08/13/2023. 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 Initiated on palliative radiation to T12 and the sternum 08/17/2023. Induction chemotherapy today 08/20/2023 with carboplatin and Taxol. Large left upper lung mass suspect small cell lung cancer with significant metastasis including the liver and bone possible distal stomach and duodenum 40 year smoking history, quit in October 2022 History of trip and fall back in March 2023 with residual pain and discomfort leading to a chest x-ray in July 2023 Plan: The patient was seen and evaluated Medications and labs reviewed Received palliative radiation x 2 Induction chemotherapy today with carboplatin and Taxol Continue to monitor closely Titrate the FiO2 as tolerated This patient was seen independently by the pulmonary nurse practitioner anh sing pulmonary issues I have personally seen and examined the patient, performed the documentation and the assessment and plan as written. Number of minutes spent on the visit: 23.
[2023-08-20] MEDS ORDERED: PACLITAXEL IV ONE (12:00)
[2023-08-20] MEDS ORDERED: SODIUM CHLORIDE 0.9% IV ONE ×2 (12:00→15:00)
--- NOTE | 2023-08-20 13:26 | P.PN ---
Subjective Progress Note Date: 08/19/23 H&P Date: 08/11/23 Kianna Hayes is a 63 yo F with PMH of longstanding tobacco abuse, recently found to have metastatic cancer with suspected lung primary who is being worked up by Oncology. Around June 2023, she had progressive dyspnea and cough which did not resolve, CT of the chest with contrast on 07/16/2023 was notable for dense lobular opacity in the left upper lobe extending from the apex to the hilum measuring 8.3 x 4.5 cm and 9.4 cm in the craniocaudal dimension. The mass was contiguous with the left mediastinum, including a portion of the distal aortic arch and left main pulmonary artery. It was also notable for left supraclavicular, superior mediastinal, and bilateral hilar lymphadenopathy. Soft tissue lesion was noted in the left anterior aspect of the T12 vertebral body with cortical destruction measuring 1.9 x 2.6 cm. Multiple defined hypodense lesions in the liver were also noted with the largest measuring 3.6 cm. She complains of worsening chest wall pain and cough so came to the hospital. On presentation vitals stable, labs significant for Alk phos 500, LFTs in the 80s. CT chest/abd/pelvis redemonstrating diffuse metastatic disease. 08/12/23 She feels her pain has been under improved control today. Pt had discussion with rad oncology and planning for radiation to sternal met. 08/13/23 She is doing well today, awaiting biopsy, pt feels pain is currently under better control. She denies shortness of breath. She would like to be DNR. 08/16/2023 Over the weekend she had a left supraclavicular lymph node biopsy/aspiration performed , biopsy results pending .Pain currently controlled at rest. Continues on both IV and oral pain medications. Reports she increased her activity yesterday and tolerated well. Maintaining O2 sats in the 90s on 3 L nasal cannula. 08/17/23 scheduled to receive her first dose of palliative radiation treatment today. Lymph node biopsy noted, reporting positive for metastatic poorly differentiated carcinoma but specific immune receptors pending. Complains of pain management induced nausea. Reports no bowel movement. Denies chest pain, palpitations or shortness of breath-reported shortness of breath last night. Maintaining O2 sats in the 90s on 3 L nasal cannula. 08/18/23 "Feels rested today."received first dose of palliative radiation yesterday, tolerated procedure well. Fentanyl patch added to med regimen yesterday. Reports pain unchanged in her sternum and back, currently rating it as 02/15. Reglan initiated yesterday with nausea lessened. Positive bowel movement yesterday. Denies chest pain, palpitations or shortness of breath. Maintaining O2 sats in the low 90s on 3 L nasal cannula. Afebrile. 08/19/23 status post radiation to sternum and T12, pain currently controlled. 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 Discharge placed on hold, oncology planning to initiate chemotherapy tomorrow. currently maintaining O2 sats in the 90s on 3 L nasal cannula, O2 sat on room air after ambulation 87%. Objective - Vital Signs Vital signs: Vital Signs Temp 99.2 F 08/19/23 11:45 Pulse 80 08/19/23 11:45 Resp 16 08/19/23 11:45 BP 132/74 08/19/23 11:45 Pulse Ox 91 L 08/19/23 11:45 FiO2 Intake & Output 08/18/23 08/19/23 08/19/23 18:59 06:59 18:59 Weight 86.183 kg 86 kg Other: Voiding Method Bedside Commode # Voids 4 3 - Exam PHYSICAL EXAM: VITAL SIGNS: [As above] GENERAL: Alert and oriented 3, Sitting up in chair, no acute distress HEENT: Normocephalic, Conjunctivae normal. NECK: Supple, no JVD. Left supraclavicular lymphadenopathy. CARDIOVASCULAR: S1, S2 regular.No murmur RESPIRATION: Unlabored, bilateral bases diminished. No rhonchi or crackles. ABDOMEN: Soft, nondistended nontender . No rigidity ,+BS LEGS: No edema. no swelling. No cyanosis or clubbing. Positive DP pulses. NERVOUS SYSTEM: No focal deficits Skin: Warm and dry, no rash. - Labs CBC & Chem 7: 08/20/23 05:58 08/20/23 05:58 Labs: Abnormal Lab Results - Last 24 Hours (Table) 08/19/23 Range/Units 14:56 Hct 46.4 H (34.0-46.0) % Lymphocytes # 0.2 L (1.0-4.8) k/uL Assessment and Plan Assessment: Metastatic lung cancer Left supraclavicular biopsy, pathology positive for metastatic poorly differentiated carcinoma with focal squamous differentiation. Status post palliative radiation. Intractable pain Constipation Former nicotine dependence Marijuana use Plan: Continue on current medication regime ,monitoring and symptomatic treatment. Discharge placed on hold. PICC line ordered . Induction chemotherapy inpatient to be initiated tomorrow. Pain management as per oncology. Case management assisting patient with obtaining insurance. The impression and plan of care has been dictated as directed. : I performed a history and examination of this patient, discussed the same with the dictator. I agree with the dictator's note ,documented as a scribe. Any additional findings or plans will be noted.
--- NOTE | 2023-08-20 13:57 | P.PN ---
Subjective Progress Note Date: 08/20/23 H&P Date: 08/11/23 Kianna Hayes is a 63 yo F with PMH of longstanding tobacco abuse, recently found to have metastatic cancer with suspected lung primary who is being worked up by Oncology. Around June 2023, she had progressive dyspnea and cough which did not resolve, CT of the chest with contrast on 07/16/2023 was notable for dense lobular opacity in the left upper lobe extending from the apex to the hilum measuring 8.3 x 4.5 cm and 9.4 cm in the craniocaudal dimension. The mass was contiguous with the left mediastinum, including a portion of the distal aortic arch and left main pulmonary artery. It was also notable for left supraclavicular, superior mediastinal, and bilateral hilar lymphadenopathy. Soft tissue lesion was noted in the left anterior aspect of the T12 vertebral body with cortical destruction measuring 1.9 x 2.6 cm. Multiple defined hypodense lesions in the liver were also noted with the largest measuring 3.6 cm. She complains of worsening chest wall pain and cough so came to the hospital. On presentation vitals stable, labs significant for Alk phos 500, LFTs in the 80s. CT chest/abd/pelvis redemonstrating diffuse metastatic disease. 08/12/23 She feels her pain has been under improved control today. Pt had discussion with rad oncology and planning for radiation to sternal met. 08/13/23 She is doing well today, awaiting biopsy, pt feels pain is currently under better control. She denies shortness of breath. She would like to be DNR. 08/16/2023 Over the weekend she had a left supraclavicular lymph node biopsy/aspiration performed , biopsy results pending .Pain currently controlled at rest. Continues on both IV and oral pain medications. Reports she increased her activity yesterday and tolerated well. Maintaining O2 sats in the 90s on 3 L nasal cannula. 08/17/23 scheduled to receive her first dose of palliative radiation treatment today. Lymph node biopsy noted, reporting positive for metastatic poorly differentiated carcinoma but specific immune receptors pending. Complains of pain management induced nausea. Reports no bowel movement. Denies chest pain, palpitations or shortness of breath-reported shortness of breath last night. Maintaining O2 sats in the 90s on 3 L nasal cannula. 08/18/23 "Feels rested today."received first dose of palliative radiation yesterday, tolerated procedure well. Fentanyl patch added to med regimen yesterday. Reports pain unchanged in her sternum and back, currently rating it as 02/15. Reglan initiated yesterday with nausea lessened. Positive bowel movement yesterday. Denies chest pain, palpitations or shortness of breath. Maintaining O2 sats in the low 90s on 3 L nasal cannula. Afebrile. 08/19/23 status post radiation to sternum and T12, pain currently controlled. 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 Discharge placed on hold, oncology planning to initiate chemotherapy tomorrow. currently maintaining O2 sats in the 90s on 3 L nasal cannula, O2 sat on room air after ambulation 87%. 08/20/23 PICC line placed. Chemotherapy ordered for today. Ambulating around the room. Maintained on nebulized bronchodilators, Symbicort and steroids. Denies chest pain, palpitations or increasing shortness of breath. Maintaining O2 sats in the low 90s on room air. Afebrile, normal WBC. Hemoglobin 13.5, platelets 193. Electrolytes within normal limits .Renal function stable, AST 125, ALT 167, alk phos 612. Objective - Vital Signs Vital signs: Vital Signs Temp 98 F 08/20/23 12:21 Pulse 71 08/20/23 12:21 Resp 18 08/20/23 12:21 BP 129/76 08/20/23 12:21 Pulse Ox 93 L 08/20/23 12:21 FiO2 Intake & Output 08/19/23 08/20/23 08/20/23 18:59 06:59 18:59 Intake Total 600 Balance 600 Weight 86 kg Intake: Oral 600 Other: Voiding Method Bedside Commode # Voids 3 - Exam PHYSICAL EXAM: VITAL SIGNS: [As above] GENERAL: Alert and oriented 3, Sitting up in chair, no acute distress HEENT: Normocephalic, Conjunctivae normal. NECK: Supple, no JVD. Left supraclavicular lymphadenopathy. CARDIOVASCULAR: S1, S2 regular.No murmur RESPIRATION: Unlabored, bilateral bases diminished. ABDOMEN: Soft, nondistended nontender . No rigidity ,+BS LEGS: No edema. no swelling. No cyanosis or clubbing. Positive DP pulses. NERVOUS SYSTEM: No focal deficits Skin: Warm and dry, no rash. - Labs CBC & Chem 7: 08/20/23 05:58 08/20/23 05:58 Labs: Abnormal Lab Results - Last 24 Hours (Table) 08/19/23 08/19/23 08/20/23 Range/Units 14:56 14:56 05:58 Hct 46.4 H (34.0-46.0) % MCHC 30.7 L (31.0-37.0) g/dL Lymphocytes # 0.2 L 0.7 L (1.0-4.8) k/uL Sodium 133 L (137-145) mmol/L Chloride 91 L (98-107) mmol/L Carbon Dioxide 38 H (22-30) mmol/L Glucose 294 H (74-99) mg/dL AST 142 H (14-36) U/L ALT 164 H (4-34) U/L Alkaline Phosphatase 675 H (38-126) U/L Albumin (3.5-5.0) g/dL 08/20/23 Range/Units 05:58 Hct (34.0-46.0) % MCHC (31.0-37.0) g/dL Lymphocytes # (1.0-4.8) k/uL Sodium (137-145) mmol/L Chloride 94 L (98-107) mmol/L Carbon Dioxide 39 H (22-30) mmol/L Glucose (74-99) mg/dL AST 125 H (14-36) U/L ALT 167 H (4-34) U/L Alkaline Phosphatase 612 H (38-126) U/L Albumin 3.2 L (3.5-5.0) g/dL Assessment and Plan Assessment: Metastatic lung cancer Left supraclavicular biopsy, pathology positive for metastatic poorly differentiated carcinoma with focal squamous differentiation. Status post palliative radiation. Intractable pain Constipation COPD Former nicotine dependence Marijuana use Plan: Continue on current medication regime ,monitoring and symptomatic treatment. Induction chemotherapy inpatient to be initiated tomorrow. Pain management as per oncology. Discharge planning in progress for tomorrow. The impression and plan of care has been dictated as directed. : I performed a history and examination of this patient, discussed the same with the dictator. I agree with the dictator's note ,documented as a scribe. Any additional findings or plans will be noted.
--- NOTE | 2023-08-20 14:55 | P.PN ---
Subjective Progress Note Date: 08/20/23 Pt reporting pain is being well controlled. Completed XRT to sternum and T12. Started cycle 1 carbo/taxol today. Tolerating well Objective - Vital Signs Vital signs: Vital Signs Temp 98 F 08/20/23 12:21 Pulse 71 08/20/23 12:21 Resp 18 08/20/23 12:21 BP 129/76 08/20/23 12:21 Pulse Ox 93 L 08/20/23 12:21 FiO2 Intake & Output 08/19/23 08/20/23 08/20/23 18:59 06:59 18:59 Intake Total 600 Balance 600 Weight 86 kg Intake: Oral 600 Other: Voiding Method Bedside Commode # Voids 3 - Constitutional General appearance: Present: average body habitus, no acute distress - EENT Eyes: Present: anicteric sclerae, EOMI ENT: Present: hearing grossly normal - Respiratory Details: breathing is even and unlabored - Cardiovascular Details: skin warm and dry - Integumentary Integumentary: Absent: cyanotic - Neurologic Neurologic Comment(s): grossly intact - Musculoskeletal Musculoskeletal: Present: strength equal bilaterally - Psychiatric Psychiatric: Present: A&O x's 3 - Labs CBC & Chem 7: 08/20/23 05:58 08/20/23 05:58 Labs: Abnormal Lab Results - Last 24 Hours (Table) 08/19/23 08/19/23 08/20/23 Range/Units 14:56 14:56 05:58 Hct 46.4 H (34.0-46.0) % MCHC 30.7 L (31.0-37.0) g/dL Lymphocytes # 0.2 L 0.7 L (1.0-4.8) k/uL Sodium 133 L (137-145) mmol/L Chloride 91 L (98-107) mmol/L Carbon Dioxide 38 H (22-30) mmol/L Glucose 294 H (74-99) mg/dL AST 142 H (14-36) U/L ALT 164 H (4-34) U/L Alkaline Phosphatase 675 H (38-126) U/L Albumin (3.5-5.0) g/dL 08/20/23 Range/Units 05:58 Hct (34.0-46.0) % MCHC (31.0-37.0) g/dL Lymphocytes # (1.0-4.8) k/uL Sodium (137-145) mmol/L Chloride 94 L (98-107) mmol/L Carbon Dioxide 39 H (22-30) mmol/L Glucose (74-99) mg/dL AST 125 H (14-36) U/L ALT 167 H (4-34) U/L Alkaline Phosphatase 612 H (38-126) U/L Albumin 3.2 L (3.5-5.0) g/dL Assessment and Plan (1) Intractable pain Current Visit: Yes Status: Acute Priority: High Code(s): R52 - PAIN, UNSPECIFIED SNOMED Code(s): 98013237 (2) Constipation Current Visit: Yes Status: Acute Priority: High Code(s): K59.00 - CONSTI PATION, UNSPECIFIED SNOMED Code(s): 17054622 (3) Metastatic lung cancer (metastasis from lung to other site) Current Visit: Yes Status: Acute Priority: High Code(s): C34.90 - MALIGNANT NEOPLASM OF UNSP PART OF UNSP BRONCHUS OR LUNG SNOMED Code(s): 85289466 Plan: Poorly differentiated metastatic neuroendocrine carcinoma: -CT of the chest with contrast on 07/16/2023 was notable for dense lobular opacity in the left upper lobe extending from the apex to the hilum measuring 8.3 x 4.5 cm and 9.4 cm in the craniocaudal dimension. The mass was contiguous with the left mediastinum, including a portion of the distal aortic arch and left main pulmonary artery. It was also notable for left supraclavicular, superior mediastinal, and bilateral hilar lymphadenopathy. Soft tissue lesion was noted in the left anterior aspect of the T12 vertebral body with cortical destruction measuring 1.9 x 2.6 cm. There is another soft tissue lesion in the mid sternum measuring 2.3 x 3 x 3.8 cm. Multiple defined hypodense lesions in the liver were also noted with the largest measuring 3.6 cm. Imaging findings are consistent with malignancy, likely stage IV primary lung cancer. -PET CT was rescheduled due to concerns for insurance and this has yet to be obtained. Brain MRI negative for metastasis. Biopsy was to be scheduled outpt with pulm but also has been delayed to concerns of insurance coverage. -Rad onc consulted for eval for palliative RT to osseous mets. Completed XRT to sternum and T12 lesion -S/p left supraclavicular biopsy, revealing metastatic poorly differentiated neuroendocrine carcinoma with focal squamous cell differentiation. 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 -Will request NGS and PD-L1 testing on pathology in addition to obtaining circulating tumor DNA from the peripheral blood once patient has obtained health insurance -Discussed findings and pathology with patient and family. Will proceed with cycle 1 of inpt chemo with carbo/taxol. Will add keytruda to regimen for subsequent outpt cycles. Spoke with IM regarding plan and they were agreeable -Spoke with case management. They will work on helping patient obtain insurance coverage for hospital visit. Pt reports she has began trying to obtain insurance, and has paperwork at home to fill out. Will f/u with pt on this so we can begin further outpt testing, tx and f/u -Home O2 eval ordered Intractable pain: -Pain has been progressing, c/o pain is worst across sternum and mid back. Known osseous mets to these areas -Rad onc consulted. Spoke with Dr. Rogel regarding case. Will complete XRT to sternum and T12 today -Due to significant n/v with IV pain meds, will add fentanyl patch and continue dilaudid for severe breakthrough pain. Reporting improvement in pain control with fentanyl. [place] started, however pt reports history of n/v with norco in the past. Will start pt on scheduled zofran TID, and continue zofran and compazine PRN to see if this helps with opiate induced nausea. Will continue to monitor pain to ensure adequate pain control upon discharge. -Continues on prednisone, will start taper -1 dose zometa given -Pain meds and antiemetics sent to [facility] and will be ready for pt to [facility] upon discharge Constipation: -Been having issues with constipation x 1 month -Senokot-S and milk of magnesia added. Pt also drinking prune juice. Continue on bowel regimen Dr medranoests: I have seen and examined pt, performed H&P, developed impression and plan of care. Discussed with dictator. Agree with documentation, dictated as a scribe.
[2023-08-20] MEDS ORDERED: CARBOPLATIN IV ONE (15:00)
[2023-08-20] MEDS: SODIUM CHLORIDE 0.9% 1,000 ML IV SCH (16:08)
[2023-08-20] MEDS: PROCHLORPERAZINE INJ 10 MG/2 ML VIAL IVP PRN (20:06)
[2023-08-20] MEDS: IBUPROFEN 800 MG TAB PO PRN (23:37)
[2023-08-21 02:58] VITALS: TEMP 97.7
[2023-08-21] MEDS: IPRATROPIUM-ALBUTEROL 3 ML NEB INHALATION SCH ×2 (07:42→11:32)
[2023-08-21] MEDS: SYMBICORT 160-4.5 MCG INHALER INHALATION SCH (07:42)
[2023-08-21 07:58] LABS: Basophils % (A) 0 %; Eosinophils % (A) 0 %; HCT 44.5 % (34.0-46.0); HGB 13.7 gm/dL (11.4-16.0); Hypochromasia Moderate; Lymphocytes # (A) 0.5 k/uL (1.0-4.8); Lymphocytes % (A) 7 %; MCH 28.1 pg (25.0-35.0); MCHC 30.9 g/dL (31.0-37.0); Mean Platelet Volume 7.7; Monocytes # (A) 0.4 k/uL (0-1.0); Monocytes % (A) 5 %; Neutrophils # (A) 6.7 k/uL (1.3-7.7); Neutrophils % (A) 86 %; Platelet Count 162 k/uL (150-450); RBC 4.89 m/uL (3.80-5.40); RDW 14.3 % (11.5-15.5); WBC 7.8 k/uL (3.8-10.6)
[2023-08-21 08:09] LABS: ALT 180 U/L (4-34); AST 128 U/L (14-36); African American GFR (CKD) >90 (>60 ml/min/1.73 sqM); Albumin 3.4 g/dL (3.5-5.0); Anion Gap 8 mmol/L; Blood Urea Nitrogen 14 mg/dL (7-17); Calcium 8.8 mg/dL (8.4-10.2); Carbon Dioxide 32 mmol/L (22-30); Chloride 98 mmol/L (98-107); Globulin 3.4 g/dL; Glucose 128 mg/dL (74-99); Non-African American GFR(CKD) >90 (>60 ml/min/1.73 sqM); Potassium 4.1 mmol/L (3.5-5.1); Sodium 138 mmol/L (137-145); Total Bilirubin 1.2 mg/dL (0.2-1.3); Total Protein 6.8 g/dL (6.3-8.2)
[2023-08-21 08:17] LABS: Alkaline Phosphatase 685 U/L (38-126)
[2023-08-21 08:25] VITALS: BP 130/75
--- NOTE | 2023-08-21 08:49 | P.PN ---
Subjective Progress Note Date: 08/21/23 This is a 63-year-old female patient with a history of 40+ years of chronic tobacco dependence however quit in October 2022. She states she had a trip and fall back in March 2023 and was having ongoing issues with chest discomfort and did have a chest x-ray at the beginning of July. That chest x-ray was abnormal and she was sent to [place] for a computed tomography scan of the chest approximately 2 weeks ago. Based on those findings she was sent to medical oncology who referred the patient here to the emergency department. A chest x-ray revealed a large left upper lung mass. A computed tomography scan of the chest abdomen and pelvis revealed a large infiltrative left upper lobe ruiz ng mass. This surrounds and narrows branches a left upper lobe bronchus and pulmonary artery within the left hilum. There is direct tumor extension into the left mediastinum to the margin of the aorta. Tumor also extends and continued daily with soft tissue metastasis in the left hilum. Multiple metastatic mediastinal nodes, prevascular, right and left paratracheal, subcarinal. Right hilar metastasis. Left supraclavicular metastasis. Infiltrate throughout the majority of the left upper lobe apart from the mass consistent with metastatic/lymphangitic spread of tumor. No clear evidence of right lung metastasis. There is diffuse hepatic metastasis. Enlarged shira hepatis nodes, likely metastatic. Soft tissue thickening in the distal stomach and duodenum, concerning for metastatic involvement versus inflammatory process. Multiple lytic osseous metastasis including: Sternal, left anterior T12 vertebrae with mild pathologic compression deformity, right L5 transverse process, right proximal femur. White count 9.2. Hemoglobin 13.9. Platelets 242. Sodium 139. Potassium 4.5. Bicarb 29. BUN 11. Creatinine 0.6. Glucose 139. AST 90. ALT 81. Alk phos 532. Viral screen negative. She is seen today in consultation on the oncology unit. She is currently laying in bed. Awake and alert. She is having ongoing issues with neck sternal and spine discomfort. She denies any worsening shortness of breath. She denies any hemoptysis. No cough or congestion. She is currently on 2 L nasal cannula with O2 saturations in the 90s. Afebrile. Hemodynamically stable. She was initiated on Dilaudid for pain control. Patient was reevaluated today on 08/12/23, patient had an episode of shortness of breath last night, she was also wheezing, hence I recommended Lasix, updrafts, and I recommended Decadron. This morning she feels much better, breathing a lot easier, she believes the Lasix helped her the most. Patient is yet to be scheduled for tissue diagnosis by interventional radiology, she could have a tissue diagnosis from her left supraclavicular lymph nodes which are palpable or she could have biopsy from her liver, this will be decided upon by interventional radiology who has been consulted. In the meantime patient is being treated for intractable pain, and I believe patient is on 2 L nasal cannula with O2 sats of 91%. The patient is seen today 08/13/2023 in follow-up on the regular medical floor. Resting fairly comfortably in bed. Awake and alert in no acute distress. He is maintaining O2 saturations in the mid 90s on room air. She's been afebrile. Hemodynamically stable. Plan is for a ultrasound-guided fine-needle aspiration of the left supraclavicular lymph nodes. He is continued on DuoNeb inhalations, Symbicort, Solu-Medrol. Her pain is currently well controlled. She has normal saline at 75 ML's per hour. The patient is seen today 08/14/2023 in follow-up on the regular medical floor. She is awake and alert in no acute distress. Sitting up in bed. Maintain O2 saturations in the 90s on 3 L/m per nasal cannula. She denies any worsening shortness of breath, cough or congestion. No hemoptysis. She's been afebrile. Hemodynamically stable. A biopsy of the left supraclavicular lymph node performed yesterday. Pathology is pending. No new labs today. She is continued on Symbicort, DuoNeb inhalations, Solu-Medrol. Pain is adequately controlled. Saline at 75 ML's per hour. The patient is seen today 08/15/2023 in follow-up on the regular medical floor. She is currently laying in bed. Awake and alert in no acute distress. Denies any worsening shortness of breath, cough or congestion. She is maintaining O2 saturations in the 90s on 3 L/m per nasal cannula. She's afebrile. Hemodynamically stable. She did undergo fine-needle aspirate of the left supraclavicular lymph nodes on 08/13/2023. Pathology pending. She's been seen by both medical and radiation oncology. She remains on DuoNeb inhalations, Symbicort, prednisone taper. Saline 20 ML's per hour. Pain currently controlled. Progress note dated 08/16/2023. The patient is seen today in room 519. The patient is currently on 3 L of oxygen. Saturations are 96%. She's getting saline at 20 mL an hour. Her pain is well-controlled. She is hoping to be discharged soon. She had a fine-needle aspiration of the left supraclavicular lymph node, on August 13. Biopsy results are currently pending. No new labs today. The patient is seen today 08/17/2023 for follow-up on the regular medical floor. She is currently sitting up in a chair at the bedside. Awake and alert in no acute distress. She is maintaining good O2 saturations in the 90s on 3 L/m per nasal cannula. No IV fluids. Lymph node biopsy from the left supra clavicular mass is positive for metastatic poorly differentiated carcinoma but final characterization is pending. She is being initiated on palliative radiation therapy to T12 lesion and the sternum per radiation oncology. No new labs today. Remains on DuoNeb inhalations, Symbicort, prednisone taper. The patient is seen today 08/18/2019 for follow-up on the regular medical floor. She is awake and alert in no acute distress. Sitting up in a chair at the bedside. Family at the bedside. She denies any worsening shortness of breath, cough or congestion. No hemoptysis. She remains on DuoNeb inhalations, Symbi vandana, prednisone taper. Initiated on palliative radiation therapy yesterday and the plan is to have it again today to the sternum and back. Lymph node biopsy from the left supra clavicular mass is positive for metastatic poorly differentiated carcinoma but final characterization is pending. The patient is a 08/19/2023 in follow-up on the regular medical floor. She is sitting up at the bedside. There were acute distress. She denies any worsening shortness of breath cough or congestion. He is maintaining good O2 saturations in the 90s on 3 L/m per nasal cannula. She did desaturate to 87% on room air with a brief walk. She did undergo radiation to the sternum and T12 again yesterday. 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 The patient is seen 08/20/2023 in follow-up on the regular medical floor. She is resting comfortably in bed. Awake and alert in no acute distress. She is maintaining O2 saturations in the 90s on 3 L/m per nasal cannula. She is continued on Symbicort, DuoNeb inhalations, prednisone taper. She did receive PICC line placed to the left upper extremity yesterday. She completed 2 rounds of radiation. Plan is for induction chemotherapy today with carboplatin and Taxol. Count 10.5. Hemoglobin 13.5. Platelets 193. Sodium 139. Potassium 4.1. Bicarb 39. BUN 13. Creatinine 0.60. AST 125. ALT 167. The patient is seen today 08/21/2023 in follow-up on the regular medical floor. She is currently sitting up in a chair. Awake and alert in no acute distress. She denies any worsening shortness of breath, cough or congestion. She is maintaining O2 saturations in the 90s on 3 L/m per nasal cannula. She did receive induction chemotherapy yesterday with carboplatin and Taxol. The plan is for home today and follow up with oncology on 2093. She is continuing on Symbicort, DuoNeb inhalations, prednisone taper. Her skeletal pain is well controlled. Count 7.8. Hemoglobin 13.7. Platelets 162. Sodium 138. Potassium 4.1. Bicarb 32. BUN 14. Creatinine 0.51. AST 128. ALT 180. Alk phos 685. Objective - Vital Signs Vital signs: Vital Signs Temp 97.7 F 08/21/23 08:00 Pulse 81 08/21/23 08:00 Resp 17 08/21/23 08:00 BP 130/75 08/21/23 08:00 Pulse Ox 94 L 08/21/23 08:00 FiO2 Intake & Output 08/20/23 08/21/23 08/21/23 18:59 06:59 18:59 Intake Total 1107 600 Balance 1107 600 Intake: Intake, IV Titration 1107 Amount CARBOplatin 520 mg In 302 Sodium Chloride 0.9% 250 ml @ 302 mls/hr IV ONCE ONE Rx#:[id number] Ondansetron 16 mg In 50 Sodium Chloride 0.9% 50 ml @ 232 mls/hr IVPB ONCE ONE Rx#:[id number] PACLitaxeL 330 mg In 555 Sodium Chloride 0.9% 500 ml 500 ml @ 185 mls/hr IV ONCE ONE Rx#:[id number] Sodium Chloride 0.9% 1, 200 000 ml @ 20 mls/hr IV . Q24H CARLOS Rx#:[id number] Oral 600 Other: Voiding Method Bedside Commode # Voids 2 - Exam GENERAL EXAM: Awake, 63-year-old female, up in a chair, on 3 L nasal cannula, in no acute distress HEAD: Normocephalic. EYES: Normal reaction of pupils, equal size. NOSE: Clear with pink turbinates. THROAT: No erythema or exudates. NECK: Positive left supraclavicular lymphadenopathy CHEST: No chest wall deformity. Tender to palpation of the sternum. LUNGS: Diminished breath sound bilaterally minimal wheezing on forced expiratory maneuver CVS: S1 and S2 normal with no audible murmur, regular rhythm. ABDOMEN: Tender to palpation right quadrant, normal bowel sounds, no guarding or rigidity. SKIN: No rashes CENTRAL NERVOUS SYSTEM: Alert and oriented 3, no gross focal neurologic deficit Psychiatric: Normal mood affect and normal mental status examination EXTREMITIES: No clubbing edema or cyanosis, good pulses bilaterally - Labs CBC & Chem 7: 08/21/23 06:50 08/21/23 06:50 Labs: Abnormal Lab Results - Last 24 Hours (Table) 08/21/23 08/21/23 Range/Units 06:50 06:50 MCHC 30.9 L (31.0-37.0) g/dL Lymphocytes # 0.5 L (1.0-4.8) k/uL Carbon Dioxide 32 H (22-30) mmol/L Creatinine 0.51 L (0.52-1.04) mg/dL Glucose 128 H (74-99) mg/dL AST 128 H (14-36) U/L ALT 180 H (4-34) U/L Alkaline Phosphatase 685 H (38-126) U/L Albumin 3.4 L (3.5-5.0) g/dL Assessment and Plan Assessment: Skeletal pain including the neck, sternum and spine. A computed tomography scan of the chest abdomen and pelvis revealed a large infiltrative left upper lobe lung mass. This surrounds and narrows branches a left upper lobe bronchus and pulmonary artery within the left hilum. There is direct tumor extension into the left mediastinum to the margin of the aorta. Tumor also extends and continued daily with soft tissue metastasis in the left hilum. Multiple metastatic mediastinal nodes, prevascular, right and left paratracheal, subcarinal. Right hilar metastasis. Left supraclavicular metastasis. Infiltrate throughout the majority of the left upper lobe apart from the mass consistent with metastatic/lymphangitic spread of tumor. No clear evidence of right lung metastasis. There is diffuse hepatic metastasis. Enlarged shira hepatis nodes, likely metastatic. Soft tissue thickening in the distal stomach and duodenum, concerning for metastatic involvement versus inflammatory process. Multiple lytic osseous metastasis including: Sternal, left anterior T12 vertebrae with mild pathologic compression deformity, right L5 transverse process, right proximal femur. Ultrasound-guided fine-needle aspirate of the left supraclavicular neck mass/lymph nodes done on 08/13/2023. 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 Initiated on palliative radiation to T12 and the sternum 08/17/2023. Induction chemotherapy received on 08/20/2023 with carboplatin and Taxol. Large left upper lung mass suspect small cell lung cancer with significant metastasis including the liver and bone possible distal stomach and duodenum 40 year smoking history, quit in October 2022 History of trip and fall back in March 2023 with residual pain and discomfort leading to a chest x-ray in July 2023 Plan: The patient was seen and evaluated Medications and labs reviewed Received palliative radiation x 2 Induction chemotherapy yesterday with carboplatin and Taxol Plan is for home today with follow-up in oncology on 09/01/2023 Evaluated for home oxygen This patient was seen independently by the pulmonary nurse practitioner addressing pulmonary issues I have personally seen and examined the patient, performed the documentation and the assessment and plan as written. Number of minutes spent on the visit: 22.
[2023-08-21] MEDS: SENNOSIDES-DOCUSATE SODIUM 1 EACH TAB PO SCH (08:51)
[2023-08-21] MEDS: predniSONE 20 MG TAB PO SCH (08:52)
[2023-08-21] MEDS: polyethylene glycoL 3350 17 GM POWD.PACK PO SCH (08:52)
[2023-08-21] MEDS: FAMOTIDINE 20 MG TAB PO SCH (08:52)
[2023-08-21] MEDS: METOCLOPRAMIDE 5 MG TAB PO SCH (08:52)
[2023-08-21 11:47] VITALS: PULSE 76
--- NOTE | 2023-08-21 11:47 | DS ---
DISCHARGE SUMMARY FINAL DIAGNOSES: 1. Left upper lobe lung cancer with possible mets. 2. Nicotine dependence. 3. Intractable pain. 4. Constipation. DISCHARGE DISPOSITION: The patient will be discharged in stable condition and guarded prognosis. Discharge cleared by multiple consultants. HISTORY OF PRESENT ILLNESS: This is a 63-year-old woman with a past medical history of multiple problems, was admitted with possible lung cancer mets and on the top I am covering for Dr. Falcon. The patient improved significantly. Outpatient followup is recommended, and the patient will be discharged. PHYSICAL EXAMINATION: VITAL SIGNS: Stable. CARDIOVASCULAR: S1, S2. ABDOMEN: Soft. NERVOUS SYSTEM: No focal deficits. The patient will be discharged in stable condition and guarded prognosis. Please refer to the discharge medication reconciliation sheet for list of medications. Follow up with Dr. Brown as recommended. Pain management per Oncology. MMODL / IJN: [id number] /
[2023-08-21 12:08] VITALS: RESP 18
--- NOTE | 2023-08-26 15:21 | CDI ---
Documentation Clarification Form Date: 08/26/2023 02:46:23 PM From: Kelly Tran RN, CCDS Email: [email or web address] Admit Date: 08/10/2023 02:12:00 PM Patient Name: Kianna Hayes Visit Number: [id number] Discharge Date: 08/21/2023 02:40:00 PM ATTENTION: The Clinical Documentation Specialists (CDI) and [facility] Coding Staff appreciate your assistance in clarifying documentation. Please respond to the clarification below the line at the bottom and electronically sign. The CDI & [facility] Coding staff will review the response and follow-up if needed. Please note: Queries are made part of the Legal Health Record. If you have any questions, please contact the author of this message via ITS. Dr. Jay Jay Falcon The 08/19 Pulmonary note indicates the patient desaturated to 87% on room air. The patient qualified for home oxygen. Based on this information and the findings below, is there an additional diagnosis that is clinically appropriate for this patient? History/Risk Factors: 40+ years of chronic tobacco dependence however quit in October 2022. Metastatic lung cancer stage IV. S/P left supraclavicular lymph node biopsy/aspiration performed this admission. Tobacco use: Former smoker. Quit October 2022 Home oxygen: home oxygen evaluation this admission. Prescription for home O2 was given. Clinical Indicators: 08/11 H&P: "wheezing present." 08/12 Pulmonary: patient had an episode of shortness of breath last night, she was also wheezing, hence I recommended Lasix, updrafts and I recommended Decadron. Patient is on 2 L nasal cannula with O2 sats of 91%." 08/14 Pulmonary: "Evaluate for possible home oxygen." 08/19 Pulmonary: "She did desaturate to 87% on room air with a brief walk." 08/20 IM: "Metastatic lung cancer. Left supraclavicular biopsy, pathology positive for metastatic poorly differentiated carcinoma with focal squamous differentiation. Status post palliative radiation. Pulse oximetry: 08/11 96%-98%-90%; 08/12 94%-89%-91%; 08/13 90%-88%-92%; 08/14 91% 08/19 Pulse ox at rest 91%; pulse ox with exercise 87% 08/11 H&P: Lung/Breathing assessment: wheezing Treatment: Home oxygen evaluation. Per Case management, script for home O2 and nebulizer given. Breathing tx: A/A QID scheduled 08/12-08/21 O2: Oxygen 2-4L NC. High flow oxygen on 08/19 Is there an additional diagnosis that is clinically appropriate for this patient? [ X] Acute Hypoxic Respiratory Failure [ ] Acute on Chronic Hypoxic Respiratory Failure [ ] Chronic Respiratory Failure [ ] Other Diagnosis, please specify [ ] Unable to determine MTDD
== END 2023-08-21 14:40 | disposition home or self-care (01) | DRG 987 ==
LOC: EC 11:16 → 5NMEDONC 14:12
PROVIDERS: ADMIT Family Medicine; ATTEND Family Medicine
PROC: 07B23ZX Excision of Left Neck Lymphatic, Percutaneous Approach, Diagnostic (ICD-10-PCS; 2023-08-13)
PROC: DP0 Radiation Therapy, Musculoskeletal System, Beam Radiation (ICD-10-PCS; principal; 2023-08-17)
PROC: DP0C1ZZ Beam Radiation of Other Bone using Photons 1 - 10 MeV (ICD-10-PCS; 2023-08-17)
PROC: 02HV33Z Insertion of Infusion Device into Superior Vena Cava, Percutaneous Approach (ICD-10-PCS; 2023-08-19)
PROC: B5181ZA Fluoroscopy of Superior Vena Cava using Low Osmolar Contrast, Guidance (ICD-10-PCS; 2023-08-19)
PROC: B548ZZA Ultrasonography of Superior Vena Cava, Guidance (ICD-10-PCS; 2023-08-19)
DX: C34.12 Malignant neoplasm of upper lobe, left bronchus or lung (principal); J96.01 Acute respiratory failure with hypoxia; C78.7 Secondary malignant neoplasm of liver and intrahepatic bile duct; C79.51 Secondary malignant neoplasm of bone; C79.89 Secondary malignant neoplasm of other specified sites; M48.54XA Collapsed vertebra, not elsewhere classified, thoracic region, initial encounter for fracture; M54.50 Low back pain, unspecified; Z85.118 Personal history of other malignant neoplasm of bronchus and lung; K59.00 Constipation, unspecified; M48.00 Spinal stenosis, site unspecified; G89.3 Neoplasm related pain (acute) (chronic); M19.90 Unspecified osteoarthritis, unspecified site; W18.30XA Fall on same level, unspecified, initial encounter; Z79.52 Long term (current) use of systemic steroids; Z82.5 Family history of asthma and other chronic lower respiratory diseases; Z90.710 Acquired absence of both cervix and uterus; Z92.3 Personal history of irradiation; Z88.5 Allergy status to narcotic agent; Z66 Do not resuscitate
CPT/HCPCS: 36415; 36573; 38505; 71046; 71260; 74177; 76536; 76942; 77280; 77290; 77307; 77332; 77334; 77412; 80053; 81241; 85025; 85379; 85610; 87636; 88305; 88341; 88342; 93970; 94640; 94760; 96361; 96374; 96375; 96376; 99285